=== PATIENT | male | born 1940 | race Caucasian/White ===

== ENCOUNTER 2016-07-07 10:58 | Day surgery (SDC) | payer MEDICARE ==
[2016-06-30 11:28] LABS: HEMOGLOBIN 15.1 g/dL (13.5-17.0); HGB HCT DIFFERENCE 1.3; MEAN CORPUSCULAR HEMOGLOBIN 30.6 pg (27.0-33.4); MEAN CORPUSCULAR HGB CONC 34.3 g/dL (32.0-36.0); MEAN CORPUSCULAR VOLUME 89 fl (80-97); RED BLOOD COUNT 4.93 10^6/uL (4.35-5.55); RED CELL DISTRIBUTION WIDTH 14.8 % (11.5-14.0); WHITE BLOOD COUNT 6.7 10^3/uL (4.0-10.5)
[2016-06-30 11:45] LABS: ALANINE AMINOTRANSFERASE 28 U/L (21-72); ALBUMIN 4.2 g/dL (3.5-5.0); ALKALINE PHOSPHATASE 145 U/L (38-126); ANION GAP 10 (5-19); ASPARTATE AMINO TRANSFERASE 25 U/L (17-59); BILIRUBIN,TOTAL 0.8 mg/dL (0.2-1.3); BLOOD UREA NITROGEN 26 mg/dL (7-20); CALCIUM 9.8 mg/dL (8.4-10.2); CARBON DIOXIDE 26 mmol/L (22-30); CHLORIDE 108 mmol/L (98-107); CREATININE RESULT 2.13 mg/dL (0.52-1.25); GLUCOSE 85 mg/dL (75-110); POTASSIUM 5.2 mmol/L (3.6-5.0); SODIUM 143.5 mmol/L (137-145); TOTAL PROTEIN 7.1 g/dL (6.3-8.2)
--- NOTE | 2016-06-30 12:00 | EKG REPORT ---
SEVERITY:- ABNORMAL ECG - SINUS BRADYCARDIA ABNRM R PROG, CONSIDER ASMI OR LEAD PLACEMENT : Confirmed by: Willa Graham MD 30-Jun-2016 11:59:43
[~2016-07-07 10:58] MED LIST: ACETAMINOPHEN 325 MG TABLET PO PRN; BUPIVACAINE HCL 0.25 % INJ/PF (2.5 MG/1 ML) 30 ML VIAL ONE; CEFAZOLIN SODIUM 1 GM in DEXTROSE 5%-WATER 50 ML IV PRN; DEXAMETHASONE SOD PHOSPHATE INJ 4 MG/1 ML VIAL ONE; GLYCOPYRROLATE INJ 0.4 MG/2 ML VIAL ONE; LIDOCAINE 0.5% INJ-PF (5 MG/ML) 50 ML SDV INJ PRN; METOCLOPRAMIDE HCL INJ/PF 10 MG/2 ML SDV ONE; NEOSTIGMINE METHYLSULFATE 10 MG/10 ML VIAL ONE; NORMAL SALINE 1000 ML 1,000 ML IV PRN; ONDANSETRON HCL INJ/PF 4 MG/2 ML SDV ONE; PHENYLEPHRINE HCL INJ/PF 10 MG/1 ML SDV ONE; ROCURONIUM BROMIDE INJ 50 MG/5 ML VIAL IV ONE; SUCCINYLCHOLINE CHLORIDE INJ 200 MG/10 ML VIAL ONE
[2016-07-07] MEDS ORDERED: HYDROMORPHONE HCL INJ/PF 2 MG/ML AMPULE ONE (12:25)
[2016-07-07] MEDS ORDERED: PROPOFOL INJ 200 MG/20 ML VIAL IV ONE (12:25)
[2016-07-07] MEDS ORDERED: FENTANYL CITRATE INJ/PF 100 MCG/2 ML AMPUL ONE (12:25)
[2016-07-07] MEDS ORDERED: MIDAZOLAM 2 MG/2 ML INJ ONE (12:25)
[2016-07-07 13:38] LABS: ANION GAP 12 (5-19); BLOOD UREA NITROGEN 23 mg/dL (7-20); CALCIUM 9.7 mg/dL (8.4-10.2); CARBON DIOXIDE 25 mmol/L (22-30); CHLORIDE 108 mmol/L (98-107); CREATININE RESULT 2.11 mg/dL (0.52-1.25); GLUCOSE 84 mg/dL (75-110)
--- NOTE | 2016-07-07 17:14 | Operative Report ---
Operative Report DATE OF SURGERY: 07/07/16 PREOPERATIVE DIAGNOSIS: Symptomatic cholelithiasis, umbilical hernia. POSTOPERATIVE DIAGNOSIS: Chronic and subacute cholecystitis with cholelithiasis , umbilical hernia OPERATION: Laparoscopic cholecystectomy. Umbilical hernia repair. SURGEON: NHUNG LOMELI ANESTHESIA: GA TISSUE REMOVED OR ALTERED: Gallbladder COMPLICATIONS: None ESTIMATED BLOOD LOSS: 100 mL INTRAOPERATIVE FINDINGS: Markedly inflamed socked in gallbladder. 1.5 cm umbilical hernia fascial defect PROCEDURE: Informed consent was obtained. Patient was brought to the operating room placed operating table in supine position. After satisfactory induction of general anesthesia, patient's abdomen was prepped and draped in usual sterile fashion. A semicircular infraumbilical incision was made and dissection was carried down dissecting the bellybutton off of the underlying umbilical hernia sac. The sac was the incised entering the peritoneal cavity. Sac was excised but not submitted to pathology. The umbilical hernia fascial defect measured 1.5 cm in size. This defect was closed at the end of the case using interrupted Ethibond sutures. Alonzo trocar was inserted via the umbilical hernia. Pneumoperitoneum produced good patient toleration. 5 mm trocar was placed in the subxiphoid location.the subxiphoid trocar was switched over to a 12 mm trocar at the latter part of the case for closure of the cystic duct. Two 5 mm trochars were placed in the right subcostal location. The gallbladder was grasped and retracted cephalad over the dome of the liver. The infundibulum of the gallbladder was grasped retracted laterally and inferiorly thus exposing calot's triangle. The gallbladder was markedly inflamed contracted and scarred in at Calot's triangle. Dissection was very difficult due to scarring. Meticulous dissection was performed and the cystic duct gallbladder junction was clearly identified. The dark appeared enlarged but it was very short and a cut was made in the gallbladder to allow introduction of the cholangio-catheter but I could not the the the catheter into the cystic duct through the hole in the gallbladder. I did not want to make a incision on the cystic duct since the cystic duct was short for fear of compromising the cystic duct closure. And the cystic duct was divided using a Endo MARCO ANTONIO stapling device. The cystic duct closure appeared secure.. Cystic artery was likewise taken. The gallbladder was taken off the gallbladder bed using the hook electrocautery technique. There was a posterior cystic artery branch clearly going into the gallbladder which was clipped and divided. The plane between the gallbladder wall and the liver was indistinct making this part of the procedure difficult as well. There was some blood loss. There was bile spillage as well as stone spillage during the case. Attempt at retrieving all the stones was made. The gallbladder was removed with an Endobag through the Alonzo trocar site fascial defect. The operative field was copiously irrigated and irrigant aspirated out. Irrigation fluid was perfectly clear at the end of the case. Hemostasis appeared excellent. All trochars were removed under the direct vision a laparoscope to ensure hemostasis. The umbilical hernia was repaired using interrupted the Ethibond sutures. The 12 mm trocar site at the subxiphoid region was closed with a interrupted Vicryl suture. All skin incisions were closed with subcuticular interrupted Monocryl sutures. Marcaine was injected at the port sites. Patient tolerated procedure well no apparent complications and was taken to the recovery area in stable condition.
[2016-07-07] MEDS ORDERED: PROMETHAZINE HCL INJ 25 MG/1 ML VIAL IV PRN ×2 (17:22)
[2016-07-07] MEDS ORDERED: MORPHINE SULFATE 10 MG/ML INJ IV PRN (17:22)
[2016-07-07] MEDS ORDERED: FENTANYL CITRATE INJ/PF 100 MCG/2 ML AMPUL IV PRN ×3 (17:22)
[2016-07-07] MEDS ORDERED: MEPERIDINE HCL/PF INJ 25 MG/1 ML DISP.SYRIN IV PRN (17:22)
[2016-07-07] MEDS ORDERED: DIPHENHYDRAMINE HCL 50 MG/ML VIAL IV PRN (17:22)
[2016-07-07] MEDS ORDERED: (PENDING PHARMACY ID) (Methadone Hcl [Methadone Hcl] 5 MG) PO PRN (17:23)
[2016-07-07] MEDS ORDERED: OXYCODONE-ACETAMINOPHEN 5-325 MG TABLET PO PRN (17:25)
[2016-07-07] MEDS ORDERED: ONDANSETRON HCL INJ/PF 4 MG/2 ML SDV IV PRN (17:25)
[2016-07-07] MEDS ORDERED: ACETAMINOPHEN 100 ML IV ONE (17:29)
[2016-07-07] MEDS ORDERED: DEXMEDETOMIDINE INJ 80 MCG/20 ML VIAL IV ONE (17:29)
[2016-07-07] MEDS ORDERED: METHADONE HCL 10 MG TABLET PO PRN (18:53)
[2016-07-07] MEDS ORDERED: PREGABALIN 75 MG CAPSULE PO ONE (19:30)
--- NOTE | 2016-07-07 19:35 | PDOC PROGRESS REPORT ---
Subjective Progress Note for:: 07/07/16 Subjective:: Feels well. Mild abdominal discomfort. No shortness of breath and no chest pain. Physical Exam Vital Signs: Temp Pulse Resp BP Pulse Ox 98.1 F 55 L 15 150/58 H 94 07/07/16 18:10 07/07/16 18:10 07/07/16 18:10 07/07/16 18:10 07/07/16 18:10 Intake & Output 07/06/16 07/07/16 07/08/16 06:59 06:59 06:59 Intake Total 2700 Output Total 1010 Balance 1690 Weight 86.18 kg General appearance: PRESENT: no acute distress, cooperative Respiratory exam: PRESENT: clear to auscultation [email or web address] Cardiovascular exam: PRESENT: RRR GI/Abdominal exam: PRESENT: other - Soft, nondistended, mild abdominal tenderness appropriate. Wounds clean dry and intact. Results Laboratory Results: 06/30/16 10:14 07/07/16 11:36 07/07/16 07/07/16 11:36 11:36 Sodium 145.0 Potassium 5.0 5.0 Chloride 108 H Carbon Dioxide 25 Anion Gap 12 BUN 23 H Creatinine 2.11 H Est GFR ( Amer) 37 L Est GFR (Non-Af Amer) 31 L Glucose 84 Calcium 9.7 Impressions: Chest X-Ray 06/30/16 08:54 IMPRESSION: NO SIGNIFICANT RADIOGRAPHIC FINDING IN THE CHEST. Assessment & Plan - Diagnosis (1) Cholecystitis Is this a current diagnosis for this admission?: YesPlan: Status post laparoscopic cholecystectomy. Difficult dissection due to severe inflammation. Patient appears to have tolerated procedure very well. Will keep nothing by mouth for tonight other than medications and ice chips. If he feels well we will allow him start clears in the morning. Probable discharge to home tomorrow. Ambulate patient tonight.
[2016-07-07] MEDS: METOPROLOL TARTRATE 25 MG TABLET PO SCH (21:21)
[2016-07-07] MEDS: BUDESONIDE/FORMOTEROL 80-4.5 MCG 60 PUFF/6.9 GM MDI IH SCH (21:21)
[2016-07-07] MEDS: CLONIDINE HCL 0.1 MG TABLET PO SCH (21:21)
[2016-07-07] MEDS: DEXTROSE 5%-1/2 NORMAL SALINE 1,000 ML IV PRN (21:21)
[2016-07-08] MEDS ORDERED: PREGABALIN 75 MG CAPSULE PO ONE (02:00)
[2016-07-08 05:16] LABS: HEMATOCRIT 40.6 % (37.9-51.0); HEMOGLOBIN 13.7 g/dL (13.5-17.0); HGB HCT DIFFERENCE 0.5; MEAN CORPUSCULAR HEMOGLOBIN 30.1 pg (27.0-33.4); MEAN CORPUSCULAR HGB CONC 33.7 g/dL (32.0-36.0); MEAN CORPUSCULAR VOLUME 89 fl (80-97); RED BLOOD COUNT 4.56 10^6/uL (4.35-5.55); RED CELL DISTRIBUTION WIDTH 15.5 % (11.5-14.0); WHITE BLOOD COUNT 11.6 10^3/uL (4.0-10.5)
[2016-07-08 05:28] LABS: ALANINE AMINOTRANSFERASE 41 U/L (21-72); ALBUMIN 3.3 g/dL (3.5-5.0); ALKALINE PHOSPHATASE 104 U/L (38-126); ANION GAP 14 (5-19); ASPARTATE AMINO TRANSFERASE 41 U/L (17-59); BILIRUBIN,TOTAL 0.7 mg/dL (0.2-1.3); BLOOD UREA NITROGEN 23 mg/dL (7-20); CALCIUM 8.8 mg/dL (8.4-10.2); CARBON DIOXIDE 20 mmol/L (22-30); CHLORIDE 105 mmol/L (98-107); GLUCOSE 189 mg/dL (75-110); POTASSIUM 4.6 mmol/L (3.6-5.0); SODIUM 138.9 mmol/L (137-145); TOTAL PROTEIN 5.9 g/dL (6.3-8.2)
[2016-07-08 05:58] LABS: ANISOCYTOSIS SLIGHT; BAND NEUTROPHILS % (MANUAL) 7 % (3-5); BASOPHILS % (MANUAL) 0 % (0-2); EOSINOPHILS % (MANUAL) 0 % (0-6); LYMPHOCYTES % (MANUAL) 1 % (13-45); POIKILOCYTOSIS SLIGHT; TOTAL CELLS COUNTED 100; TOXIC GRANULATION SLIGHT; TOXIC VACUOLATION PRESENT
[2016-07-08 05:59] LABS: BURR CELLS SLIGHT; OVALOCYTES SLIGHT; SCHISTOCYTES SLIGHT; TEAR DROP CELLS SLIGHT
[2016-07-08] MEDS: DEXTROSE 5%-1/2 NORMAL SALINE 1,000 ML IV PRN (08:51)
[2016-07-08] MEDS ORDERED: ATORVASTATIN CALCIUM 10 MG TABLET PO SCH ×2 (10:00→22:00)
[2016-07-08] MEDS ORDERED: PREGABALIN 75 MG CAPSULE PO SCH (10:00)
[2016-07-08] MEDS ORDERED: AMLODIPINE BESYLATE 10 MG TABLET PO SCH (10:00)
[2016-07-08] MEDS ORDERED: (PENDING PHARMACY ID) (Cholecalciferol (Vitamin D3) [Vitamin D3] 2,000 UNIT) PO SCH (10:00)
[2016-07-08] MEDS ORDERED: ASPIRIN 81 MG TABLET, CHEWABLE PO SCH (10:00)
[2016-07-08] MEDS ORDERED: CHOLECALCIFEROL (D3) 1,000 UNIT TABLET PO SCH ×2 (10:00→22:00)
[2016-07-08] MEDS ORDERED: TIOTROPIUM BROMIDE DPI 5 CAP/KIT (18 MCG/CAP) IH SCH (10:00)
[2016-07-08] MEDS ORDERED: (PENDING PHARMACY ID) (Clonidine Hcl [Clonidine Hcl Er] 0.1 MG) PO SCH (10:00)
[2016-07-08] MEDS ORDERED: FEBUXOSTAT 40 MG TABLET PO SCH ×2 (10:00→22:00)
[2016-07-08] MEDS ORDERED: LOSARTAN POTASSIUM 25 MG TABLET PO SCH ×2 (10:00→18:00)
[2016-07-08] MEDS: METOPROLOL TARTRATE 25 MG TABLET PO SCH (10:17)
[2016-07-08] MEDS: BUDESONIDE/FORMOTEROL 80-4.5 MCG 60 PUFF/6.9 GM MDI IH SCH (10:18)
[2016-07-08] MEDS: CLONIDINE HCL 0.1 MG TABLET PO SCH (10:22)
[2016-07-08] MEDS ORDERED: LOSARTAN POTASSIUM 25 MG TABLET PO ONE (10:45)
--- NOTE | 2016-07-08 11:32 | PDOC PROGRESS REPORT ---
Subjective Progress Note for:: 07/08/16 Subjective:: frequent urination and periumbilical pain. o/w feels well Physical Exam Vital Signs: Temp Pulse Resp BP Pulse Ox 98.2 F 66 17 157/58 H 95 07/08/16 07:37 07/08/16 07:37 07/08/16 07:37 07/08/16 07:37 07/08/16 07:37 Intake & Output 07/07/16 07/08/16 07/09/16 06:59 06:59 06:59 Intake Total 3510 Output Total 1410 Balance 2100 Weight 86.8 kg General appearance: PRESENT: no acute distress, cooperative Respiratory exam: PRESENT: clear to auscultation [email or web address] Cardiovascular exam: PRESENT: RRR GI/Abdominal exam: PRESENT: other - soft, mild tenderness at umbilicus. Musculoskeletal exam: PRESENT: other - no swelling Results Laboratory Results: 07/08/16 04:21 07/08/16 04:21 07/07/16 07/07/16 07/08/16 11:36 11:36 04:21 WBC 11.6 H RBC 4.56 Hgb 13.7 Hct 40.6 MCV 89 MCH 30.1 MCHC 33.7 RDW 15.5 H Plt Count 178 Seg Neutrophils % Not Reportable Lymphocytes % Not Reportable Monocytes % Not Reportable Eosinophils % Not Reportable Basophils % Not Reportable Absolute Neutrophils Not Reportable Absolute Lymphocytes Not Reportable Absolute Monocytes Not Reportable Absolute Eosinophils Not Reportable Absolute Basophils Not Reportable Sodium 145.0 Potassium 5.0 5.0 Chloride 108 H Carbon Dioxide 25 Anion Gap 12 BUN 23 H Creatinine 2.11 H Est GFR ( Amer) 37 L Est GFR (Non-Af Amer) 31 L Glucose 84 Calcium 9.7 Total Bilirubin AST ALT Alkaline Phosphatase Total Protein Albumin 07/08/16 04:21 WBC RBC Hgb Hct MCV MCH MCHC RDW Plt Count Seg Neutrophils % Lymphocytes % Monocytes % Eosinophils % Basophils % Absolute Neutrophils Absolute Lymphocytes Absolute Monocytes Absolute Eosinophils Absolute Basophils Sodium 138.9 Potassium 4.6 Chloride 105 Carbon Dioxide 20 L Anion Gap 14 BUN 23 H Creatinine 2.00 H Est GFR ( Amer) 40 L Est GFR (Non-Af Amer) 33 L Glucose 189 H Calcium 8.8 Total Bilirubin 0.7 AST 41 ALT 41 Alkaline Phosphatase 104 Total Protein 5.9 L Albumin 3.3 L Impressions: Chest X-Ray 06/30/16 08:54 IMPRESSION: NO SIGNIFICANT RADIOGRAPHIC FINDING IN THE CHEST. Assessment & Plan - Diagnosis (1) Cholecystitis Is this a current diagnosis for this admission?: YesPlan: Status post laparoscopic cholecystectomy. Difficult dissection due to severe inflammation. Patient appears to have tolerated procedure very well. looks good other than urinary complaints, check bladder scan. stop ivf.
--- NOTE | 2016-07-08 13:01 | PDOC PROGRESS REPORT ---
Subjective Progress Note for:: 07/08/16 Subjective:: feels ok other than frequent urination Physical Exam Vital Signs: Temp Pulse Resp BP Pulse Ox 98.2 F 66 17 157/58 H 95 07/08/16 07:37 07/08/16 07:37 07/08/16 07:37 07/08/16 07:37 07/08/16 07:37 Intake & Output 07/07/16 07/08/16 07/09/16 06:59 06:59 06:59 Intake Total 3510 Output Total 1410 Balance 2100 Weight 86.8 kg Results Laboratory Results: 07/08/16 04:21 07/08/16 04:21 07/07/16 07/08/16 07/08/16 11:36 04:21 04:21 WBC 11.6 H RBC 4.56 Hgb 13.7 Hct 40.6 MCV 89 MCH 30.1 MCHC 33.7 RDW 15.5 H Plt Count 178 Seg Neutrophils % Not Reportable Lymphocytes % Not Reportable Monocytes % Not Reportable Eosinophils % Not Reportable Basophils % Not Reportable Absolute Neutrophils Not Reportable Absolute Lymphocytes Not Reportable Absolute Monocytes Not Reportable Absolute Eosinophils Not Reportable Absolute Basophils Not Reportable Sodium 145.0 138.9 Potassium 5.0 4.6 Chloride 108 H 105 Carbon Dioxide 25 20 L Anion Gap 12 14 BUN 23 H 23 H Creatinine 2.11 H 2.00 H Est GFR ( Amer) 37 L 40 L Est GFR (Non-Af Amer) 31 L 33 L Glucose 84 189 H Calcium 9.7 8.8 Total Bilirubin 0.7 AST 41 ALT 41 Alkaline Phosphatase 104 Total Protein 5.9 L Albumin 3.3 L Impressions: Chest X-Ray 06/30/16 08:54 IMPRESSION: NO SIGNIFICANT RADIOGRAPHIC FINDING IN THE CHEST. Assessment & Plan - Diagnosis (1) Cholecystitis Is this a current diagnosis for this admission?: Yes (2) Urinary retention due to benign prostatic hyperplasia Is this a current diagnosis for this admission?: YesPlan: bladder scanner not working. h/o bph. will do straight cath. if output high, will leave catheter in. place on flomax.
[2016-07-08] MEDS ORDERED: TAMSULOSIN HCL 0.4 MG CAP.SR.24H PO ONE (14:00)
[2016-07-08 17:13] VITALS: BP 151/61
--- NOTE | 2016-07-08 17:15 | PDOC DISCHARGE SUMMARY ---
Discharge Summary (SDC) - Discharge Final Diagnosis: Cholecystitis. Umbilical hernia. Urinary retention. Date of Surgery: 07/07/16 Discharge Date: 07/08/16 Condition: Good Treatment or Instructions: Underwent umbilical hernia repair. Underwent laparoscopic cholecystectomy. Did well other than urinary retention requiring a Brian catheter with drainage of greater than a liter of urine. Therefore patient was placed on Flomax and the catheter was left in with the instructions given to the patient for catheter care. He will follow-up with his urologist as an outpatient. He will follow-up with me in 2 weeks. He is encouraged to stay active but avoid strenuous activity. He was tolerating a solid diet at the time of discharge. He is to call me for any problems. Prescriptions: Oxycodone HCl/Acetaminophen [Percocet 5-325 mg Tablet] 1 tab PO ASDIR PRN #25 tablet PRN Reason: Tamsulosin HCl [Flomax 0.4 mg Cap.sr] 0.4 mg PO DAILY #14 cap.sr.24h Referrals: [facility] [Provider Group] DREA PADGETT MD [Primary Care Provider] - Discharge Diet: As Tolerated Discharge Activity: Activity As Tolerated - They active but avoid strenuous activity. May shower tomorrow. Report the Following to Your Physician Immediately: Yellow Skin, Fever over 101 Degrees, Unusual Bleeding, Redness, Drainage-Foul Smelling
[2016-07-08] MEDS ORDERED: CLONIDINE HCL 0.1 MG TABLET PO SCH (22:00)
[2016-07-08] MEDS ORDERED: LOSARTAN POTASSIUM 50 MG TABLET PO SCH (22:00)
[2016-07-09] MEDS ORDERED: (PENDING PHARMACY ID) (Clonidine Hcl [Clonidine Hcl Er] 0.1 MG) PO SCH ×2 (10:00)
== END 2016-07-08 18:15 | disposition home or self-care (01) ==
LOC: OROUT 10:58 → 5 18:40 → OROUT 07-08 18:15
PROVIDERS: ATTEND Surgery
PROC: 0FT44ZZ Resection of Gallbladder, Percutaneous Endoscopic Approach (ICD-10-PCS; principal; 2016-07-07 13:30)
PROC: 0WQF0ZZ Repair Abdominal Wall, Open Approach (ICD-10-PCS; 2016-07-07 13:30)
DX: K81.0 Acute cholecystitis (principal); K81.1 Chronic cholecystitis; K42.9 Umbilical hernia without obstruction or gangrene; M94.0 Chondrocostal junction syndrome [Tietze]; R00.2 Palpitations; E78.5 Hyperlipidemia, unspecified; M54.30 Sciatica, unspecified side; M11.09 Hydroxyapatite deposition disease, multiple sites; I70.0 Atherosclerosis of aorta; I35.0 Nonrheumatic aortic (valve) stenosis; J43.9 Emphysema, unspecified; E04.1 Nontoxic single thyroid nodule; B02.29 Other postherpetic nervous system involvement; I12.9 Hypertensive chronic kidney disease with stage 1 through stage 4 chronic kidney disease, or unspecified chronic kidney disease; N18.9 Chronic kidney disease, unspecified; E07.9 Disorder of thyroid, unspecified; I25.2 Old myocardial infarction; Z86.73 Personal history of transient ischemic attack (TIA), and cerebral infarction without residual deficits; Z85.528 Personal history of other malignant neoplasm of kidney; Z87.891 Personal history of nicotine dependence
CPT/HCPCS: 93005; 36415 ×2; 84132; 85025; 85027; 80048; 80053 ×2; 88304 ×2; 71020; 93010; 47562; 49585; Q9967; J2250; A9270 ×9; J0690; J3490 ×5; J1100; J2765; J1170; J2370; J0330; J2405; J2704; J0131; 790; J3010

== ENCOUNTER 2016-07-17 16:59 | Emergency (ER) | payer MEDICARE ==
--- NOTE | 2016-07-17 17:09 | ER Document Report ---
ED Medical Screen (RME) - General Stated Complaint: URINATION CONCERNS Time seen by provider: 17:06 Mode of Arrival: Ambulatory Information source: Patient Notes: 75-year-old male presents to ED for urinary retention. He states he has not had a good void since 9:30 this morning. States he has not voided at all for the last 3 hours. Sip from 9:30 this morning until 3 hours ago he was just having small dribbles. Patient states he is not having any sensation like he needs to urinate but has not drank a lot today either. He states he's drank about 24 ounces since this morning. States he had a catheter removed yesterday morning by Dr. Arriaza about 9:[address] Arriaza told him that he might have to have one put back in. I have greeted and performed a rapid initial assessment of this patient. A comprehensive ED assessment and evaluation of the patient, analysis of test results and completion of medical decision making process will be conducted by an additional ED providers. TRAVEL OUTSIDE OF THE [place] IN LAST 30 DAYS: No - Related Data Allergies/Adverse Reactions: iohexol [From Omnipaque] Adverse Reaction (Severe, Verified 07/07/16 19:07) Renal failure contrast dye Allergy (Severe, Uncoded 06/30/16 09:41) kidney failure Past Medical History - Past Medical History Cardiac Medical History: Reports: Hx Coronary Artery Disease, Hx Heart Attack - 2013, Hx Hypercholesterolemia, Hx Hypertension - on meds Pulmonary Medical History: Reports: Hx COPD - inhalers, Hx Pneumonia - hx of Denies: Hx Asthma Neurological Medical History: Denies: Hx Cerebrovascular Accident, Hx Seizures Endocrine Medical History: Reports: Hx Hypothyroidism Renal/ Medical History: Reports: Hx Benign Prostatic Hyperplasia Malignancy Medical History: Reports Hx Renal (Kidney) Cancer Musculoskeltal Medical History: Reports Hx Arthritis - gout Psychiatric Medical History: Denies: Hx Depression Past Surgical History: Reports: Hx Kidney (Renal Surgery) - tumor removed - Immunizations Immunizations up to date: Yes Hx Diphtheria, Pertussis, Tetanus Vaccination: Yes Physical Exam - Vital signs Vitals: Temp Pulse Resp BP Pulse Ox 98.1 F 59 L 18 127/51 H 97 07/17/16 17:02 07/17/16 17:02 07/17/16 17:02 07/17/16 17:02 07/17/16 17:02 Course - Vital Signs Vital signs: Temp Pulse Resp BP Pulse Ox 98.1 F 59 L 18 127/51 H 97 07/17/16 17:02 07/17/16 17:02 07/17/16 17:02 07/17/16 17:02 07/17/16 17:02
--- NOTE | 2016-07-17 18:32 | ER Document Report ---
ED General - General Chief Complaint: Urinary Problem Stated Complaint: URINATION CONCERNS Mode of Arrival: Ambulatory Information source: Patient Notes: 75 yr old male hx of bph with el that was removed post surgery yesterday by Dr Arsalan vera complaints of diffiuclty urinating. denies any pain TRAVEL OUTSIDE OF THE [place] IN LAST 30 DAYS: No - HPI Onset: Just prior to arrival Onset/Duration: Persistent Quality of pain: No pain Severity: Mild Pain Level: Denies Associated symptoms: None Exacerbated by: Denies Relieved by: Denies Similar symptoms previously: Yes Recently seen / treated by doctor: Yes - Related Data Allergies/Adverse Reactions: iohexol [From Omnipaque] Adverse Reaction (Severe, Verified 07/17/16 17:09) Renal failure contrast dye Allergy (Severe, Uncoded 07/17/16 17:09) kidney failure Past Medical History - General Information source: Patient - Social History Smoking Status: Never Smoker Cigarette use (# per day): No Chew tobacco use (# tins/day): No Smoking Education Provided: No Frequency of alcohol use: None Drug Abuse: None Family History: Reviewed & Not Pertinent Patient has suicidal ideation: No Patient has homicidal ideation: No - Past Medical History Cardiac Medical History: Reports: Hx Coronary Artery Disease, Hx Heart Attack - 2013, Hx Hypercholesterolemia, Hx Hypertension - on meds Pulmonary Medical History: Reports: Hx COPD - inhalers, Hx Pneumonia - hx of Denies: Hx Asthma Neurological Medical History: Denies: Hx Cerebrovascular Accident, Hx Seizures Endocrine Medical History: Reports: Hx Hypothyroidism Renal/ Medical History: Reports: Hx Benign Prostatic Hyperplasia. Denies: Hx Peritoneal Dialysis Malignancy Medical History: Reports Hx Renal (Kidney) Cancer Musculoskeltal Medical History: Reports Hx Arthritis - gout Psychiatric Medical History: Denies: Hx Depression Past Surgical History: Reports: Hx Cholecystectomy, Hx Kidney (Renal Surgery) - tumor removed - Immunizations Immunizations up to date: Yes Hx Diphtheria, Pertussis, Tetanus Vaccination: Yes Hx Pneumococcal Vaccination: 02/21/16 Review of Systems - Review of Systems Notes: REVIEW OF SYSTEMS: CONSTITUTIONAL : Denies fever, chills, or sweats. Denies recent illness. EENT: Denies eye, ear, throat, or mouth pain or symptoms. Denies nasal or sinus congestion or discharge. Denies throat, tongue, or mouth swelling or difficulty swallowing. CARDIOVASCULAR: Denies chest pain. Denies palpitations or racing or irregular heart beat. Denies ankle edema. RESPIRATORY: Denies cough, cold, or chest congestion. Denies shortness of breath, difficulty breathing, or wheezing. GASTROINTESTINAL: Denies abdominal pain or distention. Denies nausea, vomiting , or diarrhea. Denies blood in vomitus, stools, or per rectum. Denies black, tarry stools. Denies constipation. GENITOURINARY: difficulty urinating MUSCULOSKELETAL: Denies back or neck pain or stiffness. Denies joint pain or swelling. SKIN: Denies rash, lesions or sores. HEMATOLOGIC : Denies easy bruising or bleeding. LYMPHATIC: Denies swollen, enlarged glands. NEUROLOGICAL: Denies confusion or altered mental status. Denies passing out or loss of consciousness. Denies dizziness or lightheadedness. Denies headache. Denies weakness or paralysis or loss of use of either side. Denies problems with gait or speech. Denies sensory loss, numbness, or tingling. Denies seizures. PSYCHIATRIC: Denies anxiety or stress. Denies depression, suicidal ideation, or homicidal ideation. ALL OTHER SYSTEMS REVIEWED AND NEGATIVE. Dictation was performed using [email or web address] voice recognition software PHYSICAL EXAMINATION: GENERAL: Well-appearing, well-nourished and in no acute distress. HEAD: Atraumatic, normocephalic. EYES: Pupils equal round and reactive to light, extraocular movements intact, sclera anicteric, conjunctiva are normal. ENT: Nares patent, oropharynx clear without exudates. Moist mucous membranes. NECK: Normal range of motion, supple without lymphadenopathy LUNGS: Breath sounds clear to auscultation bilaterally and equal. No wheezes rales or rhonchi. HEART: Regular rate and rhythm without murmurs ABDOMEN: Postsurgical incisions well healing Musculoskeletal: Normal range of motion, no pitting or edema. No cyanosis. NEUROLOGICAL: Cranial nerves grossly intact. Normal speech, normal gait. Normal sensory, motor exams PSYCH: Normal mood, normal affect. SKIN: Warm, Dry, normal turgor, no rashes or lesions noted. Physical Exam - Vital signs Vitals: Temp Pulse Resp BP Pulse Ox 98.1 F 59 L 18 127/51 H 97 07/17/16 17:02 07/17/16 17:02 07/17/16 17:02 07/17/16 17:02 07/17/16 17:02 Course - Re-evaluation Re-evalutation: 07/17/16 18:43 El was placed 400 mL of urine was obtained patient's otherwise stable for discharge Patient's otherwise stable for discharge he is very happy with this plan After performing a Medical Screening Examination, I estimate there is LOW risk for ACUTE CORONARY SYNDROME, RESPIRATORY FAILURE, SEPSIS OR MENINGITIS, thus I consider the discharge disposition reasonable. The patient and I have discussed the diagnosis and risks, and we agree with discharging home with close follow- up. We also discussed returning to the Emergency Department immediately if new or worsening symptoms occur. We have discussed the symptoms which are most concerning (e.g., changing or worsening pain, trouble swallowing or breathing, neck stiffness, fever) that necessitate immediate return. - Vital Signs Vital signs: Temp Pulse Resp BP Pulse Ox 98.1 F 59 L 18 127/51 H 97 07/17/16 17:02 07/17/16 17:02 07/17/16 17:02 07/17/16 17:02 07/17/16 17:02 Discharge - Discharge Clinical Impression: Urinary retention due to benign prostatic hyperplasia, Urinary catheter change required Condition: Stable Disposition: HOME, SELF-CARE Instructions: El Catheter Care (OM) Additional Instructions: Follow up with your physician tomorrow for further care or return to the ED IMMEDIATELY if symptoms worsen or new concerns occur
[2016-07-17 19:17] VITALS: BP 121/57
== END 2016-07-17 19:07 | disposition home or self-care (01) ==
LOC: ER 16:59
DX: N40.1 Benign prostatic hyperplasia with lower urinary tract symptoms (principal); R33.8 Other retention of urine; Z98.890 Other specified postprocedural states; I25.10 Atherosclerotic heart disease of native coronary artery without angina pectoris; I25.2 Old myocardial infarction; I10 Essential (primary) hypertension; J44.9 Chronic obstructive pulmonary disease, unspecified; Z85.528 Personal history of other malignant neoplasm of kidney; Z91.041 Radiographic dye allergy status
CPT/HCPCS: 51702; 99283

== ENCOUNTER 2016-07-25 10:50 | Emergency (ER) | payer MEDICARE ==
--- NOTE | 2016-07-25 10:57 | ER Document Report ---
ED Medical Screen (RME) - General Stated Complaint: BLOOD IN URINE Notes: Patient is a 75-year-old male presents emergency Department with pain, hematuria in leg bag. Patient was recently seen on July [address] Keith for evaluation of urinary retention, he was sent home with a catheter and leg bag due to follow up with Dr. Bellamy on Wednesday. Patient has a history of BPH and had prolonged catheterization after cholecystectomy. I have greeted and performed a rapid initial assessment of this patient. A comprehensive ED assessment and evaluation of the patient, analysis of test results and completion of the medical decision making process will be conducted by additional ED providers. TRAVEL OUTSIDE OF THE [place] IN LAST 30 DAYS: No - Related Data Allergies/Adverse Reactions: iohexol [From Omnipaque] Adverse Reaction (Severe, Verified 07/25/16 10:55) Renal failure contrast dye Allergy (Severe, Uncoded 07/25/16 10:55) kidney failure Past Medical History - Past Medical History Cardiac Medical History: Reports: Hx Coronary Artery Disease, Hx Heart Attack - 2013, Hx Hypercholesterolemia, Hx Hypertension - on meds Pulmonary Medical History: Reports: Hx COPD - inhalers, Hx Pneumonia - hx of Denies: Hx Asthma Neurological Medical History: Denies: Hx Cerebrovascular Accident, Hx Seizures Endocrine Medical History: Reports: Hx Hypothyroidism Renal/ Medical History: Reports: Hx Benign Prostatic Hyperplasia. Denies: Hx Peritoneal Dialysis Malignancy Medical History: Reports Hx Renal (Kidney) Cancer Musculoskeltal Medical History: Reports Hx Arthritis - gout Psychiatric Medical History: Denies: Hx Depression Past Surgical History: Reports: Hx Cholecystectomy, Hx Kidney (Renal Surgery) - tumor removed - Immunizations Immunizations up to date: Yes Hx Diphtheria, Pertussis, Tetanus Vaccination: Yes Physical Exam - Vital signs Vitals: Temp Pulse Resp BP Pulse Ox 98.7 F 58 L 16 121/51 L 96 07/25/16 10:53 07/25/16 10:53 07/25/16 10:53 07/25/16 10:53 07/25/16 10:53 Course - Vital Signs Vital signs: Temp Pulse Resp BP Pulse Ox 98.7 F 58 L 16 121/51 L 96 07/25/16 10:53 07/25/16 10:53 07/25/16 10:53 07/25/16 10:53 07/25/16 10:53
--- NOTE | 2016-07-25 11:32 | ER Document Report ---
ED GI/ - General Mode of Arrival: Ambulatory Information source: Patient, Relative - spouse TRAVEL OUTSIDE OF THE [place] IN LAST 30 DAYS: No - HPI Patient complains to provider of: Hematuria Associated symptoms: Other - See above <BAY QUIÑONEZ - Last Filed: 07/25/16 12:15> <POONAM ROGERS - Last Filed: 07/25/16 13:33> - General Chief Complaint: Blood in Catheter Stated Complaint: BLOOD IN URINE Notes: Patient is a 75 year old male who presents to the emergency department complaining of blood in his catheter. On 07/07 patient had a cholecysectomy performed with umbilical hernia repair and a Brian catheter was placed, on 07/16 the catheter was removed, and on 07/17 patient went to the ED for urinary retention and another Brian was placed. Per patient is instructed to keep this catheter in place until 07/27 for an appointment with his surgeon. Patient states that he has noticed small amounts of blood in his urine for the past week but last night the amount of blood increased. Patient also complains of some pain with the catheter, describing it as stinging and reports that it is exacerbated when the catheter is moved., and pain in his scrotal area when sitting. reports patient had a small fever of 99.2 this morning at home as well. Urologist: Dr. Arriaza (BAY QUIÑONEZ) - Related Data Allergies/Adverse Reactions: iohexol [From Omnipaque] Adverse Reaction (Severe, Verified 07/25/16 10:55) Renal failure contrast dye Allergy (Severe, Uncoded 07/25/16 10:55) kidney failure Past Medical History - General Information source: Patient - Social History Smoking Status: Unknown if Ever Smoked Chew tobacco use (# tins/day): No Frequency of alcohol use: None Drug Abuse: None Family History: Reviewed & Not Pertinent Patient has suicidal ideation: No Patient has homicidal ideation: No - Past Medical History Cardiac Medical History: Reports: Hx Coronary Artery Disease, Hx Heart Attack - 2013, Hx Hypercholesterolemia, Hx Hypertension - on meds Pulmonary Medical History: Reports: Hx COPD - inhalers, Hx Pneumonia - hx of Endocrine Medical History: Reports: Hx Hypothyroidism Renal/ Medical History: Reports: Hx Benign Prostatic Hyperplasia Malignancy Medical History: Reports Hx Renal (Kidney) Cancer Musculoskeltal Medical History: Reports Hx Arthritis - gout Past Surgical History: Reports: Hx Cholecystectomy, Hx Kidney (Renal Surgery) - tumor removed - Immunizations Immunizations up to date: Yes Hx Diphtheria, Pertussis, Tetanus Vaccination: Yes Hx Pneumococcal Vaccination: 02/21/16 <BAY QUIÑONEZ - Last Filed: 07/25/16 12:15> Review of Systems - Review of Systems Constitutional: See HPI, Fever EENT: No symptoms reported Cardiovascular: No symptoms reported Respiratory: No symptoms reported Gastrointestinal: No symptoms reported Genitourinary: See HPI, Hematuria, Pain - catheter Male Genitourinary: No symptoms reported Musculoskeletal: No symptoms reported Skin: No symptoms reported Hematologic/Lymphatic: No symptoms reported Neurological/Psychological: No symptoms reported -: Yes All other systems reviewed and negative <BAY QUIÑONEZ - Last Filed: 07/25/16 12:15> Physical Exam - Vital signs Interpretation: Normal - General General appearance: Appears well, Alert - HEENT Head: Normocephalic, Atraumatic - Respiratory Respiratory status: No respiratory distress Breath sounds: Other - Congested cough - Abdominal Inspection: Normal Distension: No distension Tenderness: Nontender Organomegaly: No organomegaly - Genitourinary Inspection: Other - Dark, non-clotting bood and urine in catheter Tenderness: Nontender - Suprapubic area not tender to palpation. Prostate small , firm, and not tender to palpation Scrotum: Normal - and nontender - Extremities General upper extremity: Normal inspection General lower extremity: Normal inspection - Neurological Neuro grossly intact: Yes Cognition: Normal Orientation: AAOx4 Stratton Coma Scale Eye Opening: Spontaneous Stratton Coma Scale Verbal: Oriented Felix Coma Scale Motor: Obeys Commands Felix Coma Scale Total: 15 Speech: Normal - Psychological Associated symptoms: Normal affect, Normal mood - Skin Skin Temperature: Warm Skin Moisture: Dry Skin Color: Normal <BAY QUIÑONEZ - Last Filed: 07/25/16 12:15> <POONAM ROGERS - Last Filed: 07/25/16 13:33> - Vital signs Vitals: Temp Pulse Resp BP Pulse Ox 98.7 F 58 L 16 121/51 L 96 07/25/16 10:53 07/25/16 10:53 07/25/16 10:53 07/25/16 10:53 07/25/16 10:53 Course - Laboratory Result Diagrams: 07/25/16 11:00 07/25/16 11:00 <BAY QUIÑONEZ - Last Filed: 07/25/16 12:15> - Laboratory Result Diagrams: 07/25/16 11:00 07/25/16 11:00 <POONAM ROGERS - Last Filed: 07/25/16 13:33> - Vital Signs Vital signs: Temp Pulse Resp BP Pulse Ox 98.5 F 58 L 16 121/51 L 96 07/25/16 12:20 07/25/16 10:53 07/25/16 10:53 07/25/16 10:53 07/25/16 10:53 - Laboratory Laboratory results interpreted by me: 07/25/16 07/25/16 07/25/16 11:00 11:00 11:00 WBC 12.3 H Hgb 13.3 L RDW 14.6 H Seg Neuts % (Manual) 83 H Band Neutrophils % 2 L Lymphocytes % (Manual) 4 L Abs Neuts (Manual) 10.5 H Potassium 5.1 H BUN 25 H Creatinine 2.03 H Est GFR ( Amer) 39 L Est GFR (Non-Af Amer) 32 L Alkaline Phosphatase 130 H Albumin 3.4 L Urine Protein 100 H Urine Glucose (UA) 50 H Urine Blood MODERATE H Discharge <BAY QUIÑONEZ - Last Filed: 07/25/16 12:15> <POONAM ROGERS - Last Filed: 07/25/16 13:33> - Discharge Clinical Impression: Brian catheter in place prior to arrival, Hematuria Urinary tract infection Qualifiers: Urinary tract infection type: site unspecified Hematuria presence: with hematuria Qualified Code(s): N39.0 - Urinary tract infection, site not specified Leukocytosis Qualifiers: Leukocytosis type: bandemia Qualified Code(s): D72.825 - Bandemia BPH (benign prostatic hyperplasia) Qualifiers: Prostatic enlargement morphology: unspecified morphology Lower urinary tract symptom presence: presence of symptoms unspecified Qualified Code(s): N40.0 - Benign prostatic hyperplasia without lower urinary tract symptoms Condition: Stable Disposition: HOME, SELF-CARE Additional Instructions: Take the medications as prescribed. Take Tylenol for pain or fever if needed. Take plenty of fluids. Avoid potassium in your diet. Call your urologist Wednesday morning to set up a follow-up appointment and inform him of your scheduled appointment with your general surgeon. RETURN TO THE EMERGENCY ROOM IF ANY NEW OR WORSENING SYMPTOMS. Prescriptions: Ciprofloxacin HCl [Cipro 500 mg Tablet] 500 mg PO BID #14 tablet Referrals: DREA PADGETT MD [Primary Care Provider] - Follow up as needed Scribe Attestation: 07/25/16 13:33 I personally performed the services described in the documentation, reviewed and edited the documentation which was dictated to the scribe in my presence, and it accurately records my words and actions. (POONAM ROGERS) Scribe Documentation - Scribe Written by Olu:: olu Rivera, 07/25/16, 1220 acting as scribe for :: Rick <BAY QUIÑONEZ - Last Filed: 07/25/16 12:15>
[2016-07-25 11:39] LABS: HEMATOCRIT 39.7 % (37.9-51.0); HEMOGLOBIN 13.3 g/dL (13.5-17.0); HGB HCT DIFFERENCE 0.2; MEAN CORPUSCULAR HEMOGLOBIN 29.5 pg (27.0-33.4); MEAN CORPUSCULAR HGB CONC 33.5 g/dL (32.0-36.0); MEAN CORPUSCULAR VOLUME 88 fl (80-97); RED BLOOD COUNT 4.51 10^6/uL (4.35-5.55); RED CELL DISTRIBUTION WIDTH 14.6 % (11.5-14.0); WHITE BLOOD COUNT 12.3 10^3/uL (4.0-10.5)
[2016-07-25 11:46] LABS: APPEARANCE,URINE CLOUDY; BILIRUBIN,URINE NEGATIVE (NEGATIVE); GLUCOSE, URINE 50 mg/dL (NEGATIVE); KETONES,URINE NEGATIVE (NEGATIVE); LEUKOCYTE ESTERASE,URINE NEGATIVE (NEGATIVE); NITRITE,URINE NEGATIVE (NEGATIVE); PROTEIN,URINE 100 mg/dL (NEGATIVE); URINE SPECIFIC GRAVITY 1.012; UROBILINOGEN,URINE NEGATIVE mg/dL (<2.0)
[2016-07-25 11:52] LABS: ALANINE AMINOTRANSFERASE 21 U/L (21-72); ALBUMIN 3.4 g/dL (3.5-5.0); ALKALINE PHOSPHATASE 130 U/L (38-126); ANION GAP 10 (5-19); ASPARTATE AMINO TRANSFERASE 17 U/L (17-59); BILIRUBIN,TOTAL 0.6 mg/dL (0.2-1.3); BLOOD UREA NITROGEN 25 mg/dL (7-20); CALCIUM 9.3 mg/dL (8.4-10.2); CARBON DIOXIDE 25 mmol/L (22-30); CHLORIDE 105 mmol/L (98-107); CREATININE RESULT 2.03 mg/dL (0.52-1.25); GLUCOSE 102 mg/dL (75-110); POTASSIUM 5.1 mmol/L (3.6-5.0); SODIUM 140.1 mmol/L (137-145); TOTAL PROTEIN 6.6 g/dL (6.3-8.2)
[2016-07-25 12:03] LABS: BAND NEUTROPHILS % (MANUAL) 2 % (3-5); BASOPHILS % (MANUAL) 0 % (0-2); EOSINOPHILS % (MANUAL) 1 % (0-6); LYMPHOCYTES % (MANUAL) 4 % (13-45); TOTAL CELLS COUNTED 100
[2016-07-25 12:04] LABS: RBC MORPHOLOGY COMMENT NORMO-CYTIC/CHROMIC
[2016-07-25] MEDS ORDERED: CEFTRIAXONE 1 GM/D5W RTU 50 ML IV ONE (12:50)
[2016-07-25] MEDS ORDERED: CIPROFLOXACIN HCL 500 MG TABLET PO ONE (13:28)
[2016-07-25 14:20] VITALS: BP 143/57
== END 2016-07-25 14:15 | disposition home or self-care (01) ==
LOC: ER 10:50
DX: T85.9XXA Unspecified complication of internal prosthetic device, implant and graft, initial encounter (principal); R31.9 Hematuria, unspecified; N39.0 Urinary tract infection, site not specified; D72.825 Bandemia; N40.0 Benign prostatic hyperplasia without lower urinary tract symptoms; R50.9 Fever, unspecified
CPT/HCPCS: 99283; 96365; 36415; 87040; 87086; 85025; 87088; 80053; 81001; 87186; A9270; J0696

== ENCOUNTER → 2016-09-04 | Outpatient (CLI) | payer MEDICARE ==
[2016-09-04 08:46] LABS: APPEARANCE,URINE CLEAR; BILIRUBIN,URINE NEGATIVE (NEGATIVE); GLUCOSE, URINE NEGATIVE (NEGATIVE); KETONES,URINE NEGATIVE (NEGATIVE); LEUKOCYTE ESTERASE,URINE NEGATIVE (NEGATIVE); NITRITE,URINE NEGATIVE (NEGATIVE); PROTEIN,URINE 100 mg/dL (NEGATIVE); URINE SPECIFIC GRAVITY 1.011; UROBILINOGEN,URINE NEGATIVE mg/dL (<2.0)
[2016-09-04 09:07] LABS: ANION GAP 13 (5-19); BLOOD UREA NITROGEN 32 mg/dL (7-20); CALCIUM 9.3 mg/dL (8.4-10.2); CARBON DIOXIDE 21 mmol/L (22-30); CHLORIDE 110 mmol/L (98-107); CREATININE RESULT 2.12 mg/dL (0.52-1.25); GLUCOSE 106 mg/dL (75-110); POTASSIUM 4.4 mmol/L (3.6-5.0); SODIUM 143.8 mmol/L (137-145)
[2016-09-04 11:02] LABS: HEMATOCRIT 41.3 % (37.9-51.0); HGB HCT DIFFERENCE 0.7; MEAN CORPUSCULAR HEMOGLOBIN 29.6 pg (27.0-33.4); MEAN CORPUSCULAR HGB CONC 33.8 g/dL (32.0-36.0); MEAN CORPUSCULAR VOLUME 88 fl (80-97); RED BLOOD COUNT 4.72 10^6/uL (4.35-5.55); RED CELL DISTRIBUTION WIDTH 15.9 % (11.5-14.0); WHITE BLOOD COUNT 4.8 10^3/uL (4.0-10.5)
== END ==
LOC: OD 07:34
PROVIDERS: ATTEND Internal Medicine Nephrology
DX: I12.9 Hypertensive chronic kidney disease with stage 1 through stage 4 chronic kidney disease, or unspecified chronic kidney disease (principal); N18.3 Chronic kidney disease, stage 3 (moderate); R80.9 Proteinuria, unspecified
CPT/HCPCS: 36415; 80048; 81001; 85027

== ENCOUNTER → 2017-01-01 | Outpatient (CLI) | payer MEDICARE ==
[2017-01-01 09:53] LABS: HEMATOCRIT 45.4 % (37.9-51.0); HEMOGLOBIN 15.4 g/dL (13.5-17.0); HGB HCT DIFFERENCE 0.8; MEAN CORPUSCULAR HEMOGLOBIN 30.4 pg (27.0-33.4); MEAN CORPUSCULAR HGB CONC 33.8 g/dL (32.0-36.0); MEAN CORPUSCULAR VOLUME 90 fl (80-97); RED BLOOD COUNT 5.05 10^6/uL (4.35-5.55); RED CELL DISTRIBUTION WIDTH 14.2 % (11.5-14.0); WHITE BLOOD COUNT 5.8 10^3/uL (4.0-10.5)
[2017-01-01 09:55] LABS: APPEARANCE,URINE CLEAR; BILIRUBIN,URINE NEGATIVE (NEGATIVE); GLUCOSE, URINE NEGATIVE (NEGATIVE); KETONES,URINE NEGATIVE (NEGATIVE); LEUKOCYTE ESTERASE,URINE NEGATIVE (NEGATIVE); NITRITE,URINE NEGATIVE (NEGATIVE); PROTEIN,URINE 100 mg/dL (NEGATIVE); UROBILINOGEN,URINE NEGATIVE mg/dL (<2.0)
[2017-01-01 10:14] LABS: URINE CREATININE 87.9 mg/dL (22-328)
[2017-01-01 10:21] LABS: ANION GAP 10 (5-19); BLOOD UREA NITROGEN 25 mg/dL (7-20); CALCIUM 9.2 mg/dL (8.4-10.2); CARBON DIOXIDE 24 mmol/L (22-30); CHLORIDE 108 mmol/L (98-107); CREATININE RESULT 2.29 mg/dL (0.52-1.25); GLUCOSE 89 mg/dL (75-110); SODIUM 142.4 mmol/L (137-145)
[2017-01-01 10:29] LABS: URINE PROTEIN 269.8 mg/dL (<12)
== END ==
LOC: OD 09:01
PROVIDERS: ATTEND Internal Medicine Nephrology
DX: N18.3 Chronic kidney disease, stage 3 (moderate) (principal); R80.9 Proteinuria, unspecified; E87.5 Hyperkalemia; M10.00 Idiopathic gout, unspecified site
CPT/HCPCS: 36415; 80048; 81001; 82570; 84156; 85027

== ENCOUNTER → 2017-04-14 | Outpatient (CLI) | payer MEDICARE ==
[2017-04-14 10:28] LABS: HEMATOCRIT 40.8 % (37.9-51.0); HEMOGLOBIN 14.2 g/dL (13.5-17.0); HGB HCT DIFFERENCE 1.8; MEAN CORPUSCULAR HGB CONC 34.9 g/dL (32.0-36.0); MEAN CORPUSCULAR VOLUME 89 fl (80-97); RED BLOOD COUNT 4.59 10^6/uL (4.35-5.55); RED CELL DISTRIBUTION WIDTH 14.4 % (11.5-14.0); WHITE BLOOD COUNT 5.6 10^3/uL (4.0-10.5)
[2017-04-14 10:35] LABS: APPEARANCE,URINE CLEAR; BILIRUBIN,URINE NEGATIVE (NEGATIVE); GLUCOSE, URINE NEGATIVE (NEGATIVE); KETONES,URINE NEGATIVE (NEGATIVE); LEUKOCYTE ESTERASE,URINE NEGATIVE (NEGATIVE); NITRITE,URINE NEGATIVE (NEGATIVE); PROTEIN,URINE 100 mg/dL (NEGATIVE); URINE SPECIFIC GRAVITY 1.011; UROBILINOGEN,URINE NEGATIVE mg/dL (<2.0)
[2017-04-14 10:50] LABS: URINE CREATININE 85.6 mg/dL (22-328)
[2017-04-14 10:55] LABS: ANION GAP 12 (5-19); BLOOD UREA NITROGEN 34 mg/dL (7-20); CALCIUM 9.1 mg/dL (8.4-10.2); CARBON DIOXIDE 23 mmol/L (22-30); CHLORIDE 108 mmol/L (98-107); CREATININE RESULT 2.53 mg/dL (0.52-1.25); GLUCOSE 86 mg/dL (75-110); POTASSIUM 4.8 mmol/L (3.6-5.0)
[2017-04-14 11:01] LABS: BACTERIA,URINE TRACE /HPF; WBC,URINE 0-1 /HPF
[2017-04-14 11:32] LABS: ADD HIVPANEL? NO; HIV (1 AND 2) ANTIBODY NEGATIVE (NEGATIVE)
[2017-04-15 07:42] LABS: COMPLEMENT C4 31 mg/dL (14-44)
[2017-04-15 08:41] LABS: HEPATITIS C VIRUS AB 0.1 s/co ratio (0.0-0.9)
[2017-04-15 09:48] LABS: COMPLEMENT C3 146 mg/dL (82-167)
== END ==
LOC: OD 08:52
PROVIDERS: ATTEND Physician Assistant Medical
DX: I12.9 Hypertensive chronic kidney disease with stage 1 through stage 4 chronic kidney disease, or unspecified chronic kidney disease (principal); N18.4 Chronic kidney disease, stage 4 (severe); R80.9 Proteinuria, unspecified; E87.0 Hyperosmolality and hypernatremia
CPT/HCPCS: 36415; 80048; 81001; 82570; 84156; 85027; 86038; 86160; 86701; 86704; 86803; 86804; 87340; 87350

== ENCOUNTER → 2017-07-16 | Outpatient (CLI) | payer MEDICARE ==
[2017-07-16 08:45] LABS: HEMATOCRIT 43.4 % (37.9-51.0); HEMOGLOBIN 14.7 g/dL (13.5-17.0); MEAN CORPUSCULAR HEMOGLOBIN 30.3 pg (27.0-33.4); MEAN CORPUSCULAR HGB CONC 33.8 g/dL (32.0-36.0); MEAN CORPUSCULAR VOLUME 90 fl (80-97); PLATELET COUNT 207 10^3/uL (150-450); RED BLOOD COUNT 4.84 10^6/uL (4.35-5.55); RED CELL DISTRIBUTION WIDTH 14.5 % (11.5-14.0); WHITE BLOOD COUNT 6.3 10^3/uL (4.0-10.5)
[2017-07-16 08:52] LABS: APPEARANCE,URINE CLEAR; BILIRUBIN,URINE NEGATIVE (NEGATIVE); COLOR,URINE YELLOW; GLUCOSE, URINE NEGATIVE (NEGATIVE); KETONES,URINE NEGATIVE (NEGATIVE); LEUKOCYTE ESTERASE,URINE NEGATIVE (NEGATIVE); NITRITE,URINE NEGATIVE (NEGATIVE); PROTEIN,URINE 100 mg/dL (NEGATIVE); UROBILINOGEN,URINE NEGATIVE mg/dL (<2.0)
[2017-07-16 09:08] LABS: ANION GAP 12 (5-19); BLOOD UREA NITROGEN 30 mg/dL (7-20); CALCIUM 9.4 mg/dL (8.4-10.2); CARBON DIOXIDE 25 mmol/L (22-30); CHLORIDE 106 mmol/L (98-107); GLUCOSE 95 mg/dL (75-110); PHOSPHORUS 4.1 mg/dL (2.5-4.5); POTASSIUM 5.4 mmol/L (3.6-5.0); SODIUM 142.9 mmol/L (137-145)
[2017-07-16 09:10] LABS: URINE CREATININE 74.9 mg/dL (22-328)
[2017-07-16 09:21] LABS: UR PRO/CREAT RATIO RESULT 4.1 mg/mg (0.0-0.2); URINE PROTEIN 303.9 mg/dL (<12)
== END ==
LOC: OD 08:17
PROVIDERS: ATTEND Physician Assistant Medical
DX: I12.9 Hypertensive chronic kidney disease with stage 1 through stage 4 chronic kidney disease, or unspecified chronic kidney disease (principal); N18.3 Chronic kidney disease, stage 3 (moderate); R80.9 Proteinuria, unspecified; E87.5 Hyperkalemia
CPT/HCPCS: 36415; 80048; 81001; 82570; 83970; 84100; 84156; 85027; 86225

== ENCOUNTER → 2017-12-15 | Outpatient (CLI) | payer MEDICARE ==
[2017-12-15 08:54] LABS: HEMOGLOBIN 14.4 g/dL (13.5-17.0); MEAN CORPUSCULAR HEMOGLOBIN 30.8 pg (27.0-33.4); MEAN CORPUSCULAR HGB CONC 34.4 g/dL (32.0-36.0); MEAN CORPUSCULAR VOLUME 90 fl (80-97); PLATELET COUNT 194 10^3/uL (150-450); RED BLOOD COUNT 4.69 10^6/uL (4.35-5.55); RED CELL DISTRIBUTION WIDTH 14.6 % (11.5-14.0); WHITE BLOOD COUNT 7.4 10^3/uL (4.0-10.5)
[2017-12-15 09:08] LABS: APPEARANCE,URINE CLEAR; BILIRUBIN,URINE NEGATIVE (NEGATIVE); COLOR,URINE YELLOW; GLUCOSE, URINE NEGATIVE (NEGATIVE); KETONES,URINE NEGATIVE (NEGATIVE); LEUKOCYTE ESTERASE,URINE NEGATIVE (NEGATIVE); NITRITE,URINE NEGATIVE (NEGATIVE); PROTEIN,URINE 100 mg/dL (NEGATIVE); URINE SPECIFIC GRAVITY 1.012; UROBILINOGEN,URINE NEGATIVE mg/dL (<2.0)
[2017-12-15 09:10] LABS: ANION GAP 14 (5-19); BLOOD UREA NITROGEN 32 mg/dL (7-20); CALCIUM 9.3 mg/dL (8.4-10.2); CARBON DIOXIDE 19 mmol/L (22-30); CHLORIDE 112 mmol/L (98-107); GLUCOSE 93 mg/dL (75-110); POTASSIUM 4.5 mmol/L (3.6-5.0); SODIUM 144.8 mmol/L (137-145)
[2017-12-15 09:30] LABS: URINE CREATININE 88.2 mg/dL (22-328)
[2017-12-15 09:42] LABS: URINE PROTEIN 262.3 mg/dL (<12)
== END ==
LOC: OD 08:05
PROVIDERS: ATTEND Physician Assistant Medical
DX: I12.9 Hypertensive chronic kidney disease with stage 1 through stage 4 chronic kidney disease, or unspecified chronic kidney disease (principal); N18.4 Chronic kidney disease, stage 4 (severe); R80.9 Proteinuria, unspecified; E87.5 Hyperkalemia
CPT/HCPCS: 36415; 80048; 81001; 82570; 84156; 85027

== ENCOUNTER → 2018-04-14 | Outpatient (CLI) | payer MEDICARE ==
[2018-04-14 11:15] LABS: APPEARANCE,URINE CLEAR; BILIRUBIN,URINE NEGATIVE (NEGATIVE); COLOR,URINE YELLOW; GLUCOSE, URINE NEGATIVE (NEGATIVE); KETONES,URINE NEGATIVE (NEGATIVE); LEUKOCYTE ESTERASE,URINE NEGATIVE (NEGATIVE); NITRITE,URINE NEGATIVE (NEGATIVE); PROTEIN,URINE 100 mg/dL (NEGATIVE); URINE SPECIFIC GRAVITY 1.014; UROBILINOGEN,URINE NEGATIVE mg/dL (<2.0)
[2018-04-14 11:18] LABS: HEMATOCRIT 36.4 % (37.9-51.0); HEMOGLOBIN 12.6 g/dL (13.5-17.0); MEAN CORPUSCULAR HGB CONC 34.6 g/dL (32.0-36.0); MEAN CORPUSCULAR VOLUME 90 fl (80-97); PLATELET COUNT 241 10^3/uL (150-450); RED BLOOD COUNT 4.06 10^6/uL (4.35-5.55); RED CELL DISTRIBUTION WIDTH 13.1 % (11.5-14.0); WHITE BLOOD COUNT 7.7 10^3/uL (4.0-10.5)
[2018-04-14 11:41] LABS: ANION GAP 14 (5-19); BLOOD UREA NITROGEN 39 mg/dL (7-20); CARBON DIOXIDE 21 mmol/L (22-30); CHLORIDE 107 mmol/L (98-107); GLUCOSE 89 mg/dL (75-110); SODIUM 141.5 mmol/L (137-145)
[2018-04-14 12:16] LABS: UR PRO/CREAT RATIO RESULT 2.5 mg/mg (0.0-0.2); URINE CREATININE 80.6 mg/dL (22-328); URINE PROTEIN 197.6 mg/dL (<12)
== END ==
LOC: OD 09:56
PROVIDERS: ATTEND Physician Assistant Medical
DX: I12.9 Hypertensive chronic kidney disease with stage 1 through stage 4 chronic kidney disease, or unspecified chronic kidney disease (principal); N18.4 Chronic kidney disease, stage 4 (severe); E87.5 Hyperkalemia; R80.9 Proteinuria, unspecified
CPT/HCPCS: 36415; 80048; 81001; 82570; 83970; 84100; 84156; 85027

== ENCOUNTER 2018-05-10 20:46 | Emergency (ER) | payer MEDICARE ==
[2018-05-10 21:14] LABS: HEMATOCRIT 36.1 % (37.9-51.0); MEAN CORPUSCULAR HEMOGLOBIN 30.2 pg (27.0-33.4); MEAN CORPUSCULAR HGB CONC 33.2 g/dL (32.0-36.0); MEAN CORPUSCULAR VOLUME 91 fl (80-97); PLATELET COUNT 230 10^3/uL (150-450); RED BLOOD COUNT 3.97 10^6/uL (4.35-5.55); RED CELL DISTRIBUTION WIDTH 15.1 % (11.5-14.0); WHITE BLOOD COUNT 15.8 10^3/uL (4.0-10.5)
[2018-05-10 21:25] LABS: PROTHROMBIN TIME 13.7 SEC (11.4-15.4)
[2018-05-10 21:30] LABS: ALANINE AMINOTRANSFERASE 10 U/L (21-72); ALBUMIN 3.7 g/dL (3.5-5.0); ALKALINE PHOSPHATASE 124 U/L (38-126); ANION GAP 12 (5-19); ASPARTATE AMINO TRANSFERASE 15 U/L (17-59); BILIRUBIN,DIRECT 0.3 mg/dL (0.0-0.4); BILIRUBIN,TOTAL 0.6 mg/dL (0.2-1.3); BLOOD UREA NITROGEN 33 mg/dL (7-20); CARBON DIOXIDE 20 mmol/L (22-30); CHLORIDE 108 mmol/L (98-107); GLUCOSE 124 mg/dL (75-110); POTASSIUM 4.6 mmol/L (3.6-5.0); SODIUM 140.1 mmol/L (137-145); TOTAL PROTEIN 6.5 g/dL (6.3-8.2)
--- NOTE | 2018-05-10 21:38 | RADIOLOGY REPORT (SQ) ---
EXAM DESCRIPTION: AP view of the chest CLINICAL HISTORY:77 years Male, difficulty breathing Comparison: None FINDINGS: No focal lung consolidation. No pleural effusion. No pneumothorax. Cardiac and mediastinal silhouette is unremarkable. No acute osseous abnormality. Soft tissues are unremarkable. IMPRESSION: No acute findings. No focal lung consolidation.
[2018-05-10 21:39] LABS: VENOUS BLOOD HCO3 14.2 mmol/L (20-32); VENOUS BLOOD PCO2 21.5 mmHg (35-63); VENOUS BLOOD PH 7.44 (7.30-7.42)
--- NOTE | 2018-05-10 21:39 | ER Document Report ---
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 Patient is brought to the emergency room by EMS after developing fever of 101.4, chills followed by vomiting and then shortness of breath. Patient took 1 g of Tylenol before coming to the hospital. TRAVEL OUTSIDE OF THE [place] IN LAST 30 DAYS: No - HPI Onset: Just prior to arrival Onset/Duration: Sudden Quality of pain: No pain Severity: None Pain Level: Denies Associated symptoms: Chills, Fever, Nausea, Vomiting, Shortness of breath Exacerbated by: Denies Relieved by: Denies Similar symptoms previously: Yes Recently seen / treated by doctor: Yes - Related Data Allergies/Adverse Reactions: iohexol [From Omnipaque] Adverse Reaction (Severe, Verified 07/25/16 10:55) Renal failure contrast dye Allergy (Severe, Uncoded 07/25/16 10:55) kidney failure Past Medical History - General Information source: Patient - Social History Smoking Status: Former Smoker Cigarette use (# per day): No Chew tobacco use (# tins/day): No Frequency of alcohol use: None Drug Abuse: None Lives with: Family Family History: Reviewed & Not Pertinent Patient has suicidal ideation: No Patient has homicidal ideation: No - Past Medical History Cardiac Medical History: Reports: Hx Coronary Artery Disease, Hx Heart Attack - 2013, Hx Hypercholesterolemia, Hx Hypertension - on meds Pulmonary Medical History: Reports: Hx COPD - inhalers, Hx Pneumonia - hx of Denies: Hx Asthma Neurological Medical History: Denies: Hx Cerebrovascular Accident, Hx Seizures Endocrine Medical History: Reports: Hx Hypothyroidism Renal/ Medical History: Reports: Hx Benign Prostatic Hyperplasia. Denies: Hx Peritoneal Dialysis Malignancy Medical History: Reports Hx Renal (Kidney) Cancer Musculoskeletal Medical History: Reports Hx Arthritis - gout Psychiatric Medical History: Denies: Hx Depression Past Surgical History: Reports: Hx Cholecystectomy, Hx Kidney (Renal Surgery) - tumor removed - Immunizations Immunizations up to date: Yes Hx Diphtheria, Pertussis, Tetanus Vaccination: Yes Hx Pneumococcal Vaccination: 02/21/16 Review of Systems - Review of Systems Constitutional: Chills, Fever EENT: No symptoms reported Cardiovascular: No symptoms reported Respiratory: See HPI Gastrointestinal: See HPI Genitourinary: No symptoms reported Male Genitourinary: No symptoms reported Musculoskeletal: No symptoms reported Skin: No symptoms reported Hematologic/Lymphatic: No symptoms reported Neurological/Psychological: No symptoms reported Physical Exam - Vital signs Vitals: Temp Pulse Resp BP Pulse Ox 99.2 F 83 18 158/56 H 88 L 05/10/18 20:48 05/10/18 20:48 05/10/18 20:48 05/10/18 20:48 05/10/18 20:48 Notes: Physical exam: GENERAL: Patient is alert and oriented x3, no acute distress HEAD: Atraumatic, normocephalic. EYES: Pupils equal round and reactive to light, extraocular movements intact, sclera anicteric, conjunctiva are normal. ENT: TMs normal, nares patent, oropharynx clear without exudates. Moist mucous membranes. NECK: Normal range of motion, supple without obvious mass or JVD. LUNGS: Breath sounds clear to auscultation bilaterally and equal. No wheezes rales or rhonchi. HEART: Regular rate and rhythm without murmurs, rubs or gallops. ABDOMEN: Soft, normoactive bowel sounds. No tenderness to palpation. No guarding, no rebound. No masses appreciated. EXTREMITIES: Normal range of motion, no pitting or edema. No clubbing or cyanosis. NEUROLOGICAL: Cranial nerves II through XII grossly intact. Normal speech, moving all extremities. PSYCH: Normal mood, normal affect. SKIN: Warm, Dry, normal turgor, no rashes or lesions noted. Course - Re-evaluation Re-evalutation: 05/10/18 23:52 I discussed the case with Dr. taveras (oncology at [facility]) and she is staffed the case with her attending. All things considered, they felt the patient could go home. It is unclear whether the leukocytosis could be from the biologic infusion yesterday or some early infection. In any event, the patient was walked around the ER and he felt fine. He has been noted to to have oxygen saturations in the 80s on activity. The patient's daughter is aware of this and that he has had this before. The patient has had oxygen therapy brought up to him before and he has been adamant against it because he is worried that he will become reliant upon it and he has always been a very active person. During my conversation with the patient, his oxygen saturation is 87% on room air. However, he is standing up at the time and joking and in no distress at all, which leads me to think that this is where he has been at for his baseline for quite some time. I have asked him to think about oxygen therapy at least at night because it may improve his memory during the day. As far as any respiratory distress, he is quite comfortable at this time. He is not in any distress. Therefore, we will let him go home and he will follow-up with the oncology team. Dr. taveras was going to leave word with the day team and they were going to get in contact with the patient. - Vital Signs Vital signs: Temp Pulse Resp BP Pulse Ox 99.1 F 83 21 H 155/55 H 90 L 05/10/18 23:36 05/10/18 20:48 05/10/18 23:24 05/10/18 23:24 05/10/18 23:24 - Laboratory Result Diagrams: 05/10/18 20:19 05/10/18 20:19 Laboratory results interpreted by me: 05/10/18 05/10/18 05/10/18 20:19 20:19 21:09 WBC 15.8 H RBC 3.97 L Hgb 12.0 L Hct 36.1 L RDW 15.1 H Seg Neuts % (Manual) 94 H Lymphocytes % (Manual) 2 L Abs Neuts (Manual) 14.9 H Abs Lymphs (Manual) 0.3 L VBG pH 7.44 H VBG pCO2 21.5 L VBG HCO3 14.2 L Chloride 108 H Carbon Dioxide 20 L BUN 33 H Creatinine 2.81 H Est GFR ( Amer) 27 L Est GFR (Non-Af Amer) 22 L Glucose 124 H AST 15 L ALT 10 L Urine Protein 05/10/18 23:00 WBC RBC Hgb Hct RDW Seg Neuts % (Manual) Lymphocytes % (Manual) Abs Neuts (Manual) Abs Lymphs (Manual) VBG pH VBG pCO2 VBG HCO3 Chloride Carbon Dioxide BUN Creatinine Est GFR ( Amer) Est GFR (Non-Af Amer) Glucose AST ALT Urine Protein >=500 H - Diagnostic Test Radiology reviewed: Image reviewed, Reports reviewed - Chest x-ray shows no pneumonia - EKG Interpretation by Me Rate: Normal Rhythm: NSR - EKG shows normal sinus rhythm with a no acute ST-T wave changes Discharge - Discharge Clinical Impression: Fever Condition: Stable Disposition: HOME, SELF-CARE Additional Instructions: As we discussed, your white count was elevated. This could be from the infusion received yesterday or could be possible early infection. Blood and urine cultures were sent. The chest x-ray did not show pneumonia. The urine analysis was normal. Your kidney functions have been about the same. I did discuss the case with Dr. taveras and she will leave word with the oncology team at [facility] and they will follow up with you. I want you to take it easy over the next few days.\ Continue your current medicines. Take Tylenol as needed for fever. I want you to return to the emergency room if you develop any further shortness of breath or worsening cough or productive cough or any concerns or getting worse. Otherwise, the team at [facility] may want a follow-up with you this week. If you do not hear from them tomorrow, I would touch base with them and try and call. Additionally, I want you to consider our discussion about oxygen and that it may help improve your memory. You can discuss this further with your local doctor (Dr. Brent Diallo). Referrals: CATHERINE ZIEGLER PA-C [Primary Care Provider] - Follow up as needed DREA PADGETT MD [COMMUNITY BASED STAFF] - Follow up in 3-5 days
[2018-05-10 21:42] LABS: ABSOLUTE LYMPHOCYTES# (MANUAL) 0.3 10^3/uL (0.5-4.7); ABSOLUTE MONOCYTES # (MANUAL) 0.6 10^3/uL (0.1-1.4); ABSOLUTE NEUTROPHILS# (MANUAL) 14.9 10^3/uL (1.7-8.2); BASOPHILS % (MANUAL) 0 % (0-2); EOSINOPHILS % (MANUAL) 0 % (0-6); LYMPHOCYTES % (MANUAL) 2 % (13-45); MONOCYTES % (MANUAL) 4 % (3-13); SEGMENTED NEUTROPHILS % (MAN) 94 % (42-78); TOTAL CELLS COUNTED 100
[2018-05-10 21:45] LABS: ANISOCYTOSIS SLIGHT; OVALOCYTES SLIGHT; PLATELET COMMENT ADEQUATE; POIKILOCYTOSIS SLIGHT; TEAR DROP CELLS SLIGHT
[2018-05-10 23:23] LABS: APPEARANCE,URINE CLEAR; BILIRUBIN,URINE NEGATIVE (NEGATIVE); COLOR,URINE YELLOW; GLUCOSE, URINE NEGATIVE (NEGATIVE); KETONES,URINE NEGATIVE (NEGATIVE); LEUKOCYTE ESTERASE,URINE NEGATIVE (NEGATIVE); NITRITE,URINE NEGATIVE (NEGATIVE); PROTEIN,URINE >=500 mg/dL (NEGATIVE); URINE SPECIFIC GRAVITY 1.014; UROBILINOGEN,URINE NEGATIVE mg/dL (<2.0)
[2018-05-11 00:27] VITALS: BP 131/65
--- NOTE | 2018-05-11 17:23 | EKG REPORT ---
SEVERITY:- OTHERWISE NORMAL ECG - SINUS RHYTHM ATRIAL PREMATURE COMPLEX : Confirmed by: Willa Graham MD 11-May-2018 17:23:02
== END 2018-05-11 00:27 | disposition home or self-care (01) ==
LOC: ER 20:46
DX: R50.9 Fever, unspecified (principal); J44.9 Chronic obstructive pulmonary disease, unspecified; R11.2 Nausea with vomiting, unspecified; C64.9 Malignant neoplasm of unspecified kidney, except renal pelvis; C78.7 Secondary malignant neoplasm of liver and intrahepatic bile duct; Z79.899 Other long term (current) drug therapy; I25.10 Atherosclerotic heart disease of native coronary artery without angina pectoris; I10 Essential (primary) hypertension; Z91.041 Radiographic dye allergy status; Z87.891 Personal history of nicotine dependence; D72.829 Elevated white blood cell count, unspecified
CPT/HCPCS: 36415; 71045; 80053; 81001; 82803; 82962; 83605; 85025; 85610; 87040; 87077; 87086; 93005; 93010; 99285

== ENCOUNTER 2018-05-15 16:18 | Inpatient (IN) | payer MEDICARE ==
[2018-05-15 18:07] LABS: ABSOLUTE EOSINOPHILS # (AUTO) 0.3 10^3/uL (0.0-0.6); ABSOLUTE LYMPHOCYTES (AUTO) 0.7 10^3/uL (0.5-4.7); ABSOLUTE NEUT (AUTO) 3.4 10^3/uL (1.7-8.2); BASOPHILS % (AUTO) 0.2 % (0-2); EOSINOPHILS % (AUTO) 5.3 % (0-6); HEMATOCRIT 35.9 % (37.9-51.0); HEMOGLOBIN 11.9 g/dL (13.5-17.0); MEAN CORPUSCULAR HGB CONC 33.1 g/dL (32.0-36.0); MEAN CORPUSCULAR VOLUME 91 fl (80-97); MONOCYTES % (AUTO) 18.8 % (3-13); PLATELET COUNT 249 10^3/uL (150-450); RED BLOOD COUNT 3.96 10^6/uL (4.35-5.55); RED CELL DISTRIBUTION WIDTH 15.1 % (11.5-14.0); SEGMENTED NEUTROPHILS % (AUTO) 62.7 % (42-78); TOTAL CELLS COUNTED % (AUTO) 100 %; WHITE BLOOD COUNT 5.4 10^3/uL (4.0-10.5)
[2018-05-15 18:09] LABS: ALANINE AMINOTRANSFERASE < 6 U/L (21-72); ALBUMIN 3.8 g/dL (3.5-5.0); ALKALINE PHOSPHATASE 95 U/L (38-126); ANION GAP 9 (5-19); ASPARTATE AMINO TRANSFERASE 24 U/L (17-59); BILIRUBIN,DIRECT 0.5 mg/dL (0.0-0.4); BILIRUBIN,TOTAL 0.8 mg/dL (0.2-1.3); BLOOD UREA NITROGEN 30 mg/dL (7-20); CALCIUM 8.7 mg/dL (8.4-10.2); CARBON DIOXIDE 23 mmol/L (22-30); CHLORIDE 109 mmol/L (98-107); GLUCOSE 108 mg/dL (75-110); POTASSIUM 4.5 mmol/L (3.6-5.0); SODIUM 141.2 mmol/L (137-145); TOTAL PROTEIN 7.3 g/dL (6.3-8.2)
[2018-05-15 18:10] LABS: INTERNATIONAL RATION (INR) 0.98; PROTHROMBIN TIME 13.5 SEC (11.4-15.4)
--- NOTE | 2018-05-15 18:37 | RADIOLOGY REPORT (SQ) ---
EXAM DESCRIPTION: CHEST 2 VIEWS COMPLETED DATE/TIME: 05/15/2018 6:14 pm REASON FOR STUDY: coughing up blood COMPARISON: 05/10/2018. TECHNIQUE: Frontal and lateral radiographic views of the chest acquired. NUMBER OF VIEWS: Two view. LIMITATIONS: None. FINDINGS: LUNGS AND PLEURA: Patchy areas of bibasilar airspace disease have developed. Likely relat ed to pneumonia, particularly in the left lower lobe. Pulmonary hemorrhage could have a similar appe arance. No pneumothorax. No significant pleural fluid. MEDIASTINUM AND HILAR STRUCTURES: No masses or contour abnormalities. HEART AND VASCULAR STRUCTURES: Heart normal size. No evidence for failure. BONES: No acute findings. HARDWARE: None in the chest. OTHER: No other significant finding. IMPRESSION: Basilar airspace infiltrates as above. TECHNICAL DOCUMENTATION: JOB ID: [id number] [facility]- All Rights Reserved Reading location - IP/workstation name: [email or web address]
--- NOTE | 2018-05-15 19:51 | ER Document Report ---
ED General - General Chief Complaint: Cough Stated Complaint: COUGHING BLOOD Time Seen by Provider: 05/15/18 17:05 Notes: Patient is a 77-year-old male with a past medical history of kidney cancer metastatic to the liver currently on monoclonal antibody therapy who presents with coughing blood. Patient was seen 5 days ago for a fever as well as shortness of breath, subsequently discharged home. Patient presents today with a single episode of hemoptysis as his primary concern. Denies history of similar in the past. Nothing improves or worsens his symptoms. States he has had a nonproductive cough previous to that. He has not had recurrence of fever. He did contact his [facility] oncology team who encouraged him to come to the emergency department. TRAVEL OUTSIDE OF THE [place] IN LAST 30 DAYS: No - Related Data Allergies/Adverse Reactions: iohexol [From Omnipaque] Adverse Reaction (Severe, Verified 07/25/16 10:55) Renal failure contrast dye Allergy (Severe, Uncoded 07/25/16 10:55) kidney failure Past Medical History - General Information source: Patient - Social History Smoking Status: Former Smoker Frequency of alcohol use: None Drug Abuse: None Lives with: Spouse/Significant other Family History: Reviewed & Not Pertinent Patient has suicidal ideation: No Patient has homicidal ideation: No - Past Medical History Cardiac Medical History: Reports: Hx Coronary Artery Disease, Hx Heart Attack - 2013, Hx Hypercholesterolemia, Hx Hypertension Pulmonary Medical History: Reports: Hx COPD, Hx Pneumonia - hx of Denies: Hx Asthma Neurological Medical History: Denies: Hx Cerebrovascular Accident, Hx Seizures Endocrine Medical History: Reports: Hx Hypothyroidism Renal/ Medical History: Reports: Hx Benign Prostatic Hyperplasia. Denies: Hx Peritoneal Dialysis Malignancy Medical History: Reports Hx Renal (Kidney) Cancer Musculoskeletal Medical History: Reports Hx Arthritis - gout Psychiatric Medical History: Denies: Hx Depression Past Surgical History: Reports: Hx Cholecystectomy, Hx Kidney (Renal Surgery) - tumor removed - Immunizations Immunizations up to date: Yes Hx Diphtheria, Pertussis, Tetanus Vaccination: Yes Hx Pneumococcal Vaccination: 02/21/16 Review of Systems - Review of Systems Notes: Constitutional: Negative for fever. HENT: Negative for sore throat. Eyes: Negative for visual changes. Cardiovascular: Negative for chest pain. Respiratory: Positive for cough and hemoptysis Gastrointestinal: Negative for abdominal pain, vomiting or diarrhea. Genitourinary: Negative for dysuria. Musculoskeletal: Negative for back pain. Skin: Negative for rash. Neurological: Negative for headaches, weakness or numbness. 10 point ROS negative except as marked above and in HPI. Physical Exam - Vital signs Vitals: Temp Pulse Resp BP Pulse Ox 98.4 F 83 20 157/58 H 93 05/15/18 16:22 05/15/18 16:22 05/15/18 16:22 05/15/18 16:22 05/15/18 16:22 Interpretation: Hypertensive Notes: PHYSICAL EXAMINATION: GENERAL: Elderly, in no acute distress HEAD: Atraumatic, normocephalic. EYES: Pupils equal round and reactive to light, extraocular movements intact, sclera anicteric, conjunctiva are normal. ENT: nares patent, oropharynx clear without exudates. Mild dry mucous membranes. NECK: Normal range of motion, supple without lymphadenopathy LUNGS: Breath sounds somewhat diminished at the bases bilaterally. No wheezes rales or rhonchi. HEART: Regular rate and rhythm without murmurs ABDOMEN: Soft, nontender, normoactive bowel sounds. No guarding, no rebound. No masses appreciated. EXTREMITIES: Normal range of motion, no pitting or edema. No cyanosis. NEUROLOGICAL: No focal neurological deficits. Moves all extremities spontaneously and on command. PSYCH: Normal mood, normal affect. SKIN: Warm, Dry, normal turgor, no rashes or lesions noted. Course - Re-evaluation Re-evalutation: 05/15/18 19:50 Patient presents with hemoptysis, small volume that started earlier today. States he is only coughed up blood on one occasion, does have the rag with him in which he coughed the blood and it is mildly saturated with blood. Patient has a known history of renal cancer metastatic to liver and is actively on immunomodulatory therapy. The patient's vitals at time of my evaluation show mild hypertension and pulse oximetry of 93-95% on room air which is actually better than when he was here earlier this week. Chest x-ray does show bibasilar infiltrates worse on the left which cannot definitively exclude pulmonary hemorrhage. Will obtain CT without contrast as I am unable to use contrast given patient's advanced kidney disease. Patient himself is otherwise nontoxic in appearance, in no respiratory distress. Considerations at this point include possible pneumonia versus acute pulmonary hemorrhage although I do not suspect that the patient has a large volume arterial pulmonary hemorrhage at this point given that he is otherwise well in appearance, not actively coughing blood more than on the first occasion. 05/15/18 21:56 CT does show findings consistent with pneumonia. I have discussed this case with Dr. Dillon who has accepted the patient. She has been started on IV levofloxacin. - Vital Signs Vital signs: Temp Pulse Resp BP Pulse Ox 99.0 F 89 20 157/58 H 97 05/16/18 00:15 05/16/18 02:00 05/16/18 00:15 05/16/18 00:15 05/16/18 00:15 - Laboratory Result Diagrams: 05/15/18 17:32 05/15/18 17:32 Laboratory results interpreted by me: 05/15/18 05/15/18 17:32 17:32 RBC 3.96 L Hgb 11.9 L Hct 35.9 L RDW 15.1 H Monocytes % 18.8 H Chloride 109 H BUN 30 H Creatinine 2.64 H Est GFR ( Amer) 29 L Est GFR (Non-Af Amer) 24 L Direct Bilirubin 0.5 H ALT < 6 L - Diagnostic Test Radiology reviewed: Image reviewed, Reports reviewed Radiology results interpreted by me: 05/15/18 21:59 Chest x-ray: Bilateral lower lobe infiltrates Discharge - Discharge Clinical Impression: Bilateral pulmonary infiltrates on chest x-ray Bilateral pneumonia Qualifiers: Pneumonia type: due to unspecified organism Lung location: lower lobe of lung Q ualified Code(s): J18.1 - Lobar pneumonia, unspecified organism Condition: Fair Disposition: ADMITTED OBSERVATION Admitting Provider: Hospitalist Unit Admitted: Telemetry
--- NOTE | 2018-05-15 20:31 | RADIOLOGY REPORT (SQ) ---
EXAM DESCRIPTION: CT CHEST WITHOUT COMPLETED DATE/TIME: 05/15/2018 8:12 pm REASON FOR STUDY: Hemoptysis COMPARISON: 05/15/[address] of the abdomen. MRI 2012. TECHNIQUE: CT scan performed of the chest without intravenous contrast. Images reviewed with lung, soft tissue and bone windows. Reconstructed coronal and sagittal MPR images reviewed. All images st ored on PACS. All CT scanners at this facility use dose modulation, iterative reconstruction, and/or weight based d osing when appropriate to reduce radiation dose to as low as reasonably achievable (ALARA). [facility]: Dose Right [facility]: CareDose [facility]: Dose Right [facility]: Teradose 4D [facility]: [employer] RADIATION DOSE: CT Rad equipment meets quality standard of care and radiation dose reduction techniq ues were employed. CTDIvol: 12.1 mGy. DLP: 488 mGy-cm. mGy. LIMITATIONS: No technical limitations. FINDINGS: LUNGS AND PLEURA: Patchy mixed interstitial and airspace opacities, multifocal throughout the bilateral lower lobes as seen on radiographs. Bullous emphysema. No dominant mass. Trace pleur al fluid on the left. HILAR AND MEDIASTINAL STRUCTURES: Shotty nodes. No clearly enlarged nodes or mass. HEART AND VASCULAR STRUCTURES: Marked coronary calcification. Aortic calcification. No aneurysm. N o pericardial effusion. UPPER ABDOMEN: Low density lesions in the liver, scattered largely subcentimeter. Chronic appearance as assessed. Heterogeneous tissue involves the upper pole right kidney, possibly involving the live r. Incompletely assessed. THYROID AND OTHER SOFT TISSUES: Slightly heterogeneous 2.4 cm nodule right thyroid. Faint calcificat ions are suggested within. BONES: No significant finding. HARDWARE: None in the chest. OTHER: No other significant findings. IMPRESSION: 1. Patchy lung infiltrates as seen on radiographs. Trace left pleural fluid is also noted. 2. Mass likely in the upper pole of the right kidney, possibly involving the liver. Incompletely ass essed on chest CT. Review of prior imaging suggests a worrisome mass in 2012 noted on MRI. If furth er imaging is performed to evaluate this, consider IV contrasted CT abdomen. 3. Nodule in the right thyroid will need ultrasound followup on elective basis. TECHNICAL DOCUMENTATION: JOB ID: [id number] Quality ID # [id number]: Final reports with documentation of one or more dose reduction techniques (e.g., Au tomated exposure control, adjustment of the mA and/or kV according to patient size, use of iterative reconstruction technique) 2010 [employer]- All Rights Reserved Reading location - IP/workstation name: [email or web address]
[2018-05-15] MEDS ORDERED: RINGERS SOLUTION,LACTATED 1,000 ML IV ONE (21:38)
[2018-05-15] MEDS ORDERED: LEVOFLOXACIN 750 MG/D5W RTU 750 MG/150 ML RTUPB IV ONE (21:38)
[2018-05-15] MEDS ORDERED: GUAIFENESIN SYRP 200 MG/10 ML UDC PO PRN (22:21)
[2018-05-15] MEDS ORDERED: CHLORPHENIRAMINE MALEATE 4 MG TABLET PO ONE (22:21)
[2018-05-15] MEDS ORDERED: IPRATROPIUM/ALBUTEROL 0.5-2.5 MG/3 ML AMPUL NEB PRN (22:21)
[2018-05-15] MEDS ORDERED: ACETAMINOPHEN 325 MG TABLET PO PRN (22:21)
[2018-05-15] MEDS: IPRATROPIUM/ALBUTEROL 0.5-2.5 MG/3 ML AMPUL NEB SCH (23:14)
[2018-05-16] MEDS: IPRATROPIUM/ALBUTEROL 0.5-2.5 MG/3 ML AMPUL NEB SCH ×4 (02:22→20:13)
[2018-05-16 04:22] LABS: ABSOLUTE EOSINOPHILS # (AUTO) 0.1 10^3/uL (0.0-0.6); ABSOLUTE LYMPHOCYTES (AUTO) 0.4 10^3/uL (0.5-4.7); ABSOLUTE MONOCYTES (AUTO) 0.8 10^3/uL (0.1-1.4); ABSOLUTE NEUT (AUTO) 2.7 10^3/uL (1.7-8.2); BASOPHILS % (AUTO) 0.1 % (0-2); EOSINOPHILS % (AUTO) 2.3 % (0-6); HEMATOCRIT 30.8 % (37.9-51.0); HEMOGLOBIN 10.4 g/dL (13.5-17.0); LYMPHOCYTES % (AUTO) 10.8 % (13-45); MEAN CORPUSCULAR HEMOGLOBIN 30.1 pg (27.0-33.4); MEAN CORPUSCULAR HGB CONC 33.8 g/dL (32.0-36.0); MEAN CORPUSCULAR VOLUME 89 fl (80-97); MONOCYTES % (AUTO) 19.7 % (3-13); PLATELET COUNT 186 10^3/uL (150-450); RED BLOOD COUNT 3.46 10^6/uL (4.35-5.55); RED CELL DISTRIBUTION WIDTH 14.8 % (11.5-14.0); SEGMENTED NEUTROPHILS % (AUTO) 67.1 % (42-78); TOTAL CELLS COUNTED % (AUTO) 100 %; WHITE BLOOD COUNT 4.1 10^3/uL (4.0-10.5)
[2018-05-16 04:47] LABS: ANION GAP 8 (5-19); BLOOD UREA NITROGEN 25 mg/dL (7-20); CALCIUM 8.3 mg/dL (8.4-10.2); CARBON DIOXIDE 21 mmol/L (22-30); CHLORIDE 112 mmol/L (98-107); GLUCOSE 111 mg/dL (75-110); SODIUM 140.7 mmol/L (137-145)
[2018-05-16] MEDS: NORMAL SALINE 1000 ML 1,000 ML IV PRN ×2 (05:03→09:53)
[2018-05-16] MEDS: HEPARIN SOD (PORCINE) 5,000 UNIT/ML 1 ML SYRINGE SUBCUT SCH ×3 (05:11→21:29)
--- NOTE | 2018-05-16 06:06 | PDOC H&P ---
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 Patient seen 5 days ago for fever and shortness of breath with unremarkable workup he was discharged home however presents today with a single episode of coughing up a small quantity of bloody material. He denies fever chills nausea vomiting, rhinorrhea, chest pain or shortness of breath. He denies a previous history, infectious contacts, recent antibiotics and is otherwise felt well. In the emergency room he has a CT of the chest notable for patchy infiltrates. He started on empiric Levaquin and referred to the hospitalist for admission. Past Medical History Cardiac Medical History: Reports: Coronary Artery Disease, Myocardial Infarction - 2013, Hyperlipidema, Hypertension Pulmonary Medical History: Reports: Chronic Obstructive Pulmonary Disease (COPD), Pneumonia - hx of Denies: Asthma Neurological Medical History: Denies: Seizures Endocrine Medical History: Reports: Hypothyroidism Malignancy Medical History: Reports: Renal (Kidney) Cancer Musculoskeltal Medical History: Reports: Arthritis - gout Psychiatric Medical History: Denies: Depression Hematology: Reports: Anemia Past Surgical History Past Surgical History: Reports: Cholecystectomy Social History Information Source: Patient Lives with: Spouse/Significant other Smoking Status: Former Smoker Frequency of Alcohol Use: None Hx Recreational Drug Use: No Drugs: None Hx Prescription Drug Abuse: No - Advance Directive Resuscitation Status: Full Code Family History Family History: Hypertension Parental Family History Reviewed: Yes Children Family History Reviewed: Yes Sibling(s) Family History Reviewed.: Yes Medication/Allergy Home Medications: Amlodipine Besylate 10 mg PO DAILY 05/03/15 Aspirin [Aspirin 81 mg Chewable Tablet] 81 mg PO DAILY 05/03/15 Atorvastatin Calcium [Lipitor 10 mg Tablet] 10 mg PO DAILY 05/03/15 Budesonide/Formoterol Fumarate [Symbicort HFA 80-4.5 mcg Inhaler 6.9 gm] 2 puff IH BID 05/03/15 Cholecalciferol (Vitamin D3) [Vitamin D3] 2,000 unit PO DAILY 05/03/15 Losartan Potassium 50 mg PO DAILY 05/03/15 Methadone HCl 5 mg PO DAILY PRN 05/03/15 Metoprolol Tartrate [Lopressor 25 mg Tablet] 12.5 mg PO Q12 05/03/15 Pregabalin [Lyrica 75 mg Capsule] 75 mg PO Q12 05/03/15 Tiotropium [place] [Spiriva Handihaler 18 mcg/dose (30 Dose)] 1 cap IH DAILY 05/03/15 Clonidine HCl [Clonidine HCl ER] 0.1 mg PO DAILY 07/01/16 Febuxostat [Uloric 40 mg Tablet] 40 mg PO DAILY 07/01/16 Oxycodone HCl/Acetaminophen [Percocet 5-325 mg Tablet] 1 tab PO ASDIR PRN #25 tablet 07/08/16 Tamsulosin HCl [Flomax 0.4 mg Cap.sr] 0.4 mg PO DAILY #14 cap.sr.24h 07/08/16 Ciprofloxacin HCl [Cipro 500 mg Tablet] 500 mg PO BID #14 tablet 07/25/16 Allergies/Adverse Reactions: iohexol [From Omnipaque] Adverse Reaction (Severe, Verified 07/25/16 10:55) Renal failure contrast dye Allergy (Severe, Uncoded 07/25/16 10:55) kidney failure Review of Systems Constitutional: ABSENT: chills, fever(s), headache(s), weight gain, weight loss Eyes: ABSENT: visual disturbances Ears: ABSENT: hearing changes Cardiovascular: ABSENT: chest pain, dyspnea on exertion, edema, orthropnea, palpitations Respiratory: ABSENT: cough, hemoptysis Gastrointestinal: ABSENT: abdominal pain, constipation, diarrhea, hematemesis, hematochezia, nausea, vomiting Genitourinary: ABSENT: dysuria, hematuria Musculoskeletal: ABSENT: joint swelling Integumentary: ABSENT: rash, wounds Neurological: ABSENT: abnormal gait, abnormal speech, confusion, dizziness, focal weakness, syncope Psychiatric: ABSENT: anxiety, depression, homidical ideation, suicidal ideation Endocrine: ABSENT: cold intolerance, heat intolerance, polydipsia, polyuria Hematologic/Lymphatic: ABSENT: easy bleeding, easy bruising Physical Exam Vital Signs: Temp Pulse Resp BP Pulse Ox 98.5 F 84 16 148/50 H 93 05/16/18 03:31 05/16/18 03:31 05/16/18 03:31 05/16/18 03:31 05/16/18 03:31 Intake & Output 05/14/18 05/15/18 05/16/18 11:59 11:59 11:59 Intake Total 1150 Balance 1150 Weight 84.5 kg General appearance: PRESENT: no acute distress, well-developed, well-nourished Head exam: PRESENT: atraumatic, normocephalic Eye exam: PRESENT: conjunctiva pink, EOMI, PERRLA. ABSENT: scleral icterus Ear exam: PRESENT: normal external ear exam Mouth exam: PRESENT: moist, tongue midline Teeth exam: PRESENT: poor dentation Neck exam: ABSENT: carotid bruit, JVD, lymphadenopathy, thyromegaly Respiratory exam: PRESENT: crackles, prolonged expiratory phas, symmetrical. ABSENT: rales, rhonchi, stridor, tachypnea, wheezes Cardiovascular exam: PRESENT: RRR, +S2, systolic murmur. ABSENT: diastolic murmur, rubs Pulses: PRESENT: normal dorsalis pedis pul Vascular exam: PRESENT: normal capillary refill GI/Abdominal exam: PRESENT: normal bowel sounds, soft. ABSENT: distended, guarding, mass, organolmegaly, rebound, tenderness Rectal exam: PRESENT: deferred Extremities exam: PRESENT: full ROM. ABSENT: calf tenderness, clubbing, pedal edema Neurological exam: PRESENT: alert, awake, oriented to person, oriented to place, oriented to time, oriented to situation, CN II-XII grossly intact. ABSENT: m otor sensory deficit Psychiatric exam: PRESENT: appropriate affect, normal mood. ABSENT: homicidal ideation, suicidal ideation Skin exam: PRESENT: dry, intact, warm. ABSENT: cyanosis, rash Results Laboratory Results: 05/16/18 03:49 05/16/18 03:49 05/15/18 05/15/18 05/15/18 17:32 17:32 17:32 WBC 5.4 RBC 3.96 L Hgb 11.9 L Hct 35.9 L MCV 91 MCH 30.0 MCHC 33.1 RDW 15.1 H Plt Count 249 Seg Neutrophils % 62.7 Lymphocytes % 13.0 Monocytes % 18.8 H Eosinophils % 5.3 Basophils % 0.2 Absolute Neutrophils 3.4 Absolute Lymphocytes 0.7 Absolute Monocytes 1.0 Absolute Eosinophils 0.3 Absolute Basophils 0.0 Sodium 141.2 Potassium 4.5 Chloride 109 H Carbon Dioxide 23 Anion Gap 9 BUN 30 H Creatinine 2.64 H Est GFR ( Amer) 29 L Est GFR (Non-Af Amer) 24 L Glucose 108 Calcium 8.7 Total Bilirubin 0.8 AST 24 ALT < 6 L Alkaline Phosphatase 95 Total Protein 7.3 Albumin 3.8 Blood Type Cancelled Antibody Screen Cancelled 05/15/18 05/16/18 05/16/18 18:45 03:49 03:49 WBC 4.1 RBC 3.46 L Hgb 10.4 L Hct 30.8 L MCV 89 MCH 30.1 MCHC 33.8 RDW 14.8 H Plt Count 186 Seg Neutrophils % 67.1 Lymphocytes % 10.8 L Monocytes % 19.7 H Eosinophils % 2.3 Basophils % 0.1 Absolute Neutrophils 2.7 Absolute Lymphocytes 0.4 L Absolute Monocytes 0.8 Absolute Eosinophils 0.1 Absolute Basophils 0.0 Sodium 140.7 Potassium 4.0 Chloride 112 H Carbon Dioxide 21 L Anion Gap 8 BUN 25 H Creatinine 2.36 H Est GFR ( Amer) 32 L Est GFR (Non-Af Amer) 27 L Glucose 111 H Calcium 8.3 L Total Bilirubin AST ALT Alkaline Phosphatase Total Protein Albumin Blood Type O POSITIVE Antibody Screen NEGATIVE Impressions: Chest X-Ray 05/15/18 17:18 IMPRESSION: Basilar airspace infiltrates as above. Chest CT 05/15/18 19:08 IMPRESSION: 1. Patchy lung infiltrates as seen on radiographs. Trace left pleural fluid is also noted. 2. Mass likely in the upper pole of the right kidney, possibly involving the liver. Incompletely assessed on chest CT. Review of prior imaging suggests a worrisome mass in 2013 noted on MRI. If further imaging is performed to evaluate this, consider IV contrasted CT abdomen. 3. Nodule in the right thyroid will need ultrasound followup on elective basis. Assessment & Plan - Diagnosis (1) Bilateral pneumonia Qualifiers: Pneumonia type: due to unspecified organism Lung location: lower lobe of lung Qualified Code(s): J18.1 - Lobar pneumonia, unspecified organism Is this a current diagnosis for this admission?: Yes Plan: Pneumonia care set deployed, symptomatic management, empiric antibiotics, follow-up CBC, blood culture and pulmonology consult (2) Hemoptysis Is this a current diagnosis for this admission?: Yes Plan: Pulmonology consult and consideration of bronchoscopy. (3) Renal cancer Is this a current diagnosis for this admission?: Yes Plan: [facility] oncology unavailable by pager thus far. Follow-up attempt by daytime team - Time Time Spent: 50 to 70 Minutes - Inpatient Certification Medical Necessity: Need Close Monitoring Due to Risk of Patient Decompensation
[2018-05-16] MEDS ORDERED: ACETAMINOPHEN 325 MG TABLET PO PRN (08:03)
[2018-05-16] MEDS: FLUTICASONE NASAL SPRAY 50 MCG/SPRY 120 SPRAY/16 GM NASL SCH ×2 (09:54→21:29)
--- NOTE | 2018-05-16 12:20 | PDOC PROGRESS REPORT ---
Subjective Progress Note for:: 05/16/18 Subjective:: This is a 77 years old male patient with past medical history significant for renal cell carcinoma status post laparoscopic nephrectomy and now with metastasis to the liver and currently on monoclonal antibody treatment at [facility], presents with chief complaint of fever shortness of breath and cough. Patient reports an episode of bloodstained sputum. His CT scan and chest x-ray are compatible bilateral lower lobe infiltrates. Currently he is getting Levaquin. Reason For Visit: COPD EXACERBATION PNEUMONIA, RENAL CA W METS Physical Exam Vital Signs: Temp Pulse Resp BP Pulse Ox 98.0 F 102 H 20 168/63 H 92 05/16/18 11:48 05/16/18 11:48 05/16/18 11:48 05/16/18 11:48 05/16/18 11:48 Intake & Output 05/15/18 05/16/18 05/17/18 06:59 06:59 06:59 Intake Total 1834 1240 Output Total 1000 600 Balance 834 640 Weight 84.5 kg General appearance: PRESENT: mild distress Head exam: PRESENT: atraumatic Eye exam: PRESENT: conjunctiva pink Neck exam: ABSENT: carotid bruit, JVD, lymphadenopathy, thyromegaly Respiratory exam: PRESENT: crackles - Bibasilar Cardiovascular exam: PRESENT: bradycardia GI/Abdominal exam: PRESENT: normal bowel sounds, soft. ABSENT: distended, guarding, mass, organolmegaly, rebound, tenderness Neurological exam: PRESENT: alert, awake, oriented to time, oriented to situation Results Laboratory Results: 05/16/18 03:49 05/16/18 03:49 05/15/18 05/15/18 05/15/18 17:32 17:32 17:32 WBC 5.4 RBC 3.96 L Hgb 11.9 L Hct 35.9 L MCV 91 MCH 30.0 MCHC 33.1 RDW 15.1 H Plt Count 249 Seg Neutrophils % 62.7 Lymphocytes % 13.0 Monocytes % 18.8 H Eosinophils % 5.3 Basophils % 0.2 Absolute Neutrophils 3.4 Absolute Lymphocytes 0.7 Absolute Monocytes 1.0 Absolute Eosinophils 0.3 Absolute Basophils 0.0 Sodium 141.2 Potassium 4.5 Chloride 109 H Carbon Dioxide 23 Anion Gap 9 BUN 30 H Creatinine 2.64 H Est GFR ( Amer) 29 L Est GFR (Non-Af Amer) 24 L Glucose 108 Calcium 8.7 Total Bilirubin 0.8 AST 24 ALT < 6 L Alkaline Phosphatase 95 Total Protein 7.3 Albumin 3.8 Blood Type Cancelled Antibody Screen Cancelled 05/15/18 05/16/18 05/16/18 18:45 03:49 03:49 WBC 4.1 RBC 3.46 L Hgb 10.4 L Hct 30.8 L MCV 89 MCH 30.1 MCHC 33.8 RDW 14.8 H Plt Count 186 Seg Neutrophils % 67.1 Lymphocytes % 10.8 L Monocytes % 19.7 H Eosinophils % 2.3 Basophils % 0.1 Absolute Neutrophils 2.7 Absolute Lymphocytes 0.4 L Absolute Monocytes 0.8 Absolute Eosinophils 0.1 Absolute Basophils 0.0 Sodium 140.7 Potassium 4.0 Chloride 112 H Carbon Dioxide 21 L Anion Gap 8 BUN 25 H Creatinine 2.36 H Est GFR ( Amer) 32 L Est GFR (Non-Af Amer) 27 L Glucose 111 H Calcium 8.3 L Total Bilirubin AST ALT Alkaline Phosphatase Total Protein Albumin Blood Type O POSITIVE Antibody Screen NEGATIVE Impressions: Chest X-Ray 05/15/18 17:18 IMPRESSION: Basilar airspace infiltrates as above. Chest CT 05/15/18 19:08 IMPRESSION: 1. Patchy lung infiltrates as seen on radiographs. Trace left pleural fluid is also noted. 2. Mass likely in the upper pole of the right kidney, possibly involving the liver. Incompletely assessed on chest CT. Review of prior imaging suggests a worrisome mass in 2012 noted on MRI. If further imaging is performed to evaluate this, consider IV contrasted CT abdomen. 3. Nodule in the right thyroid will need ultrasound followup on elective basis. 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 (4) Hypertension Qualifiers: Hypertension type: essential hypertension Qualified Code(s): I10 - Essential (primary) hypertension Is this a current diagnosis for this admission?: Yes Plan: Continue amlodipine and metoprolol (5) Hyperlipidemia Qualifiers: Hyperlipidemia type: unspecified Qualified Code(s): E78.5 - Hyperlipidemia, unspecified Is this a current diagnosis for this admission?: Yes Plan: Continue Lipitor (6) BPH (benign prostatic hyperplasia) Qualifiers: Lower urinary tract symptom detail: unspecified Is this a current diagnosis for this admission?: Yes Plan: Continue finasteride (7) COPD (chronic obstructive pulmonary disease) Qualifiers: Emphysema type: unspecified Is this a current diagnosis for this admission?: Yes Plan: Continue as needed bronchodilators. (8) Gout Is this a current diagnosis for this admission?: Yes Plan: In remission.
[2018-05-16] MEDS: TIOTROPIUM BROMIDE DPI 5 CAP/KIT (18 MCG/CAP) IH SCH (15:07)
[2018-05-16] MEDS ORDERED: METOPROLOL TARTRATE 50 MG TABLET PO SCH (17:15)
[2018-05-16] MEDS: CLONIDINE HCL 0.1 MG TABLET PO SCH (17:25)
[2018-05-16] MEDS: ATORVASTATIN CALCIUM 10 MG TABLET PO SCH (17:25)
[2018-05-16] MEDS: TAMSULOSIN HCL 0.4 MG CAP.SR.24H PO SCH (17:25)
[2018-05-16] MEDS: METOPROLOL TARTRATE 25 MG TABLET PO SCH (17:29)
[2018-05-16] MEDS: AMLODIPINE BESYLATE 10 MG TABLET PO SCH (17:43)
[2018-05-16] MEDS: ASPIRIN 81 MG TABLET, CHEWABLE PO SCH (17:43)
[2018-05-16] MEDS: LOSARTAN POTASSIUM 50 MG TABLET PO SCH (21:26)
[2018-05-16] MEDS: PREGABALIN 100 MG CAPSULE PO SCH (21:26)
[2018-05-16] MEDS: BUDESONIDE/FORMOTEROL 80-4.5 MCG 60 PUFF/6.9 GM MDI IH SCH (21:31)
[2018-05-16] MEDS: LEVOFLOXACIN 250 MG/D5W RTU 250 MG/50 ML RTUPB IV SCH (21:32)
[2018-05-17] MEDS: IPRATROPIUM/ALBUTEROL 0.5-2.5 MG/3 ML AMPUL NEB SCH ×4 (02:17→19:54)
[2018-05-17] MEDS: METOPROLOL TARTRATE 25 MG TABLET PO SCH ×2 (05:15→18:09)
[2018-05-17] MEDS: PREGABALIN 100 MG CAPSULE PO SCH ×3 (05:15→21:25)
[2018-05-17] MEDS: HEPARIN SOD (PORCINE) 5,000 UNIT/ML 1 ML SYRINGE SUBCUT SCH ×3 (05:19→21:32)
--- NOTE | 2018-05-17 09:17 | CONSULTATION REPORT E ---
Consultation Report NAME: MATT TIERNEY : 1940 AGE: 77Y DATE: 05/16/2018 ROOM: 531 A TO: RHETT ALVES M.D. FROM: SAM GLORIA M.D. Requesting Physician HISTORY OF PRESENT ILLNESS: The patient is a 77-year-old male who came in with increased shortness of breath and coughing blood. The patient has a history of kidney cancer metastatic to the liver and currently on monoclonal antibody therapy by Oncology from [place]. Five days ago the patient claims he had a fever and shortness of breath with unremarkable workup and discharged home. The patient denies any increasing cough with purulent sputum production. Yesterday the patient was admitted. The patient coughed up about 1/2 tsp of blood clots. Denies any postnasal discharge or nose bleeding. There was no recurrence of hemoptysis this morning. He claimed that he is feeling a lot better. PAST MEDICAL HISTORY: Coronary artery disease, myocardial infarction in 2013, hyperlipidemia, hypertension, history of COPD and pneumonia. History of hypothyroidism and kidney cancer with liver metastases. History of gouty arthritis and anemia. PAST SURGICAL HISTORY: Cholecystectomy. SOCIAL HISTORY: The patient lives with spouse. The patient is a former smoker. Denies illicit drug use or alcohol abuse. FAMILY HISTORY: Hypertension. MEDICATIONS INCLUDE: 1. Norvasc 10 mg daily. 2. Aspirin 81 mg. 3. Lipitor 10 mg daily. 4. Symbicort 80 mcg. 5. Vitamin D3. 6. Losartan. 7. Methadone. 8. Metoprolol. 9. Lyrica. 10. Spiriva. 11. Clonidine. 12. Uloric. 13. Oxycodone. 14. Tylenol. 15. Flomax. 16. Cipro. ALLERGIES: OMNIPAQUE IV CONTRAST ALLERGY. REVIEW OF SYSTEMS: CONSTITUTIONAL: Denies any fever or chills. EYES: No jaundice or pallor or eye pain. EARS, NOSE, AND THROAT: No drainage, no discharge. CHEST AND LUNGS: Complains of increased coughing with occasional purulent sputum and 1 episode of hemoptysis, about 1/2 tsp, on the day of admission. GENITOURINARY: No dysuria or hematuria. CARDIOVASCULAR: No chest pain. EXTREMITIES: No bipedal edema. GASTROINTESTINAL: No abdominal pain, constipation, diarrhea, or hematemesis. MUSCULOSKELETAL: No joint swelling. SKIN: No rash or wounds. PHYSICAL EXAMINATION: GENERAL: The patient is awake, alert, oriented x3, afebrile, not in apparent severe respiratory distress. VITAL SIGNS: Temperature 98.3 with a T-max of 98.5. Heart rate is 107, blood pressure is 174/55, respirations are 19, saturation is 92% on ventilatory mask, FIO2 31%. EYES: No jaundice or pallor. EARS, NOSE, AND THROAT: No ear drainage. No nasal discharge. CHEST AND LUNGS: No wheezing, no rhonchi, no coarse crackles. CARDIOVASCULAR: S1, S2 distinct. Normal rate and regular rhythm. ABDOMEN: Flabby. Positive bowel sounds. Soft, nondistended, nontender. EXTREMITIES: No joint swelling or cellulitis. LABORATORY: CBC done today showed white count of 4.1, hemoglobin is 10.4, hematocrit is 30.8, INR is 0.98. Chemistry done today showed sodium is 140.7, potassium is 4, chloride 112, CO2 21, BUN 35, creatinine 2.36, glucose 111, calcium 8.3. The SGOT yesterday was 24, normal. SGPT was 6, low. Alkaline phosphatase was 95, total protein 7.3, albumin 3.8. Chest CT scan done yesterday showed bibasilar opacities suspicious for pneumonia or inflammatory process bibasilar. ASSESSMENT: 1. Hemoptysis, possible pneumonia. Interstitial pneumonitis due to recent immunotherapy could not be completely excluded. 2. COPD/emphysema, currently stable, not in acute bronchospasm. 3. History of kidney cancer with liver metastases, currently on immunotherapy. PLAN AND RECOMMENDATIONS: 1. Continue Spiriva inhaler 1 capsule daily. 2. Continue antibiotics. 3. Albuterol inhaler 2 puffs 4 times a day as needed. 4. Will follow. DICTATING PHYSICIAN: RHETT ALVES MD,CHIP,MPH [id number] PHY#: [id number] ID: [id number] JOB#: [id number] ACCT: [id number] cc:RHETT ALVES M.D. > [facility]
[2018-05-17] MEDS: ASPIRIN 81 MG TABLET, CHEWABLE PO SCH (09:26)
[2018-05-17] MEDS: AMLODIPINE BESYLATE 10 MG TABLET PO SCH (09:26)
[2018-05-17] MEDS: FINASTERIDE 5 MG TABLET PO SCH (09:27)
[2018-05-17] MEDS: FLUTICASONE NASAL SPRAY 50 MCG/SPRY 120 SPRAY/16 GM NASL SCH ×2 (09:28→21:26)
[2018-05-17] MEDS: FEBUXOSTAT 40 MG TABLET PO SCH (09:28)
[2018-05-17] MEDS: TIOTROPIUM BROMIDE DPI 5 CAP/KIT (18 MCG/CAP) IH SCH (09:29)
[2018-05-17] MEDS: BUDESONIDE/FORMOTEROL 80-4.5 MCG 60 PUFF/6.9 GM MDI IH SCH ×2 (09:31→21:27)
[2018-05-17] MEDS ORDERED: TIOTROPIUM BROMIDE DPI 5 CAP/KIT (18 MCG/CAP) IH SCH (10:00)
[2018-05-17] MEDS: CLONIDINE HCL 0.1 MG TABLET PO SCH (18:09)
[2018-05-17] MEDS: TAMSULOSIN HCL 0.4 MG CAP.SR.24H PO SCH (18:09)
[2018-05-17] MEDS: ATORVASTATIN CALCIUM 10 MG TABLET PO SCH (18:09)
--- NOTE | 2018-05-17 18:20 | PDOC PROGRESS REPORT ---
Subjective Progress Note for:: 05/17/18 Subjective:: No adverse events overnight. His cough is been mildly productive. No fevers. Breathing comfortably on 3 L nasal cannula. He apparently desaturated whenever they took him off of oxygen earlier. Comfortable at rest. His talked extensively about the immunotherapy he is taking. Reason For Visit: COPD EXACERBATION PNEUMONIA, RENAL CA W METS Physical Exam Vital Signs: Temp Pulse Resp BP Pulse Ox 98.3 F 81 17 146/48 H 94 05/17/18 16:00 05/17/18 16:00 05/17/18 16:00 05/17/18 16:00 05/17/18 16:00 Intake & Output 05/16/18 05/17/18 05/18/18 06:59 06:59 06:59 Intake Total 1834 2802 739 Output Total 1000 2750 500 Balance 834 52 239 Weight 84.5 kg 83.8 kg General appearance: PRESENT: no acute distress, cooperative, disheveled Respiratory exam: PRESENT: unlabored. ABSENT: accessory muscle use, crackles - Right lower lobe, rhonchi, tachypnea, wheezes Cardiovascular exam: PRESENT: RRR, +S1, +S2, systolic murmur - 3 out of 6 crescendo decrescendo murmur heard best at the left upper sternal border, but pretty much audible over the entire chest Vascular exam: PRESENT: normal capillary refill GI/Abdominal exam: PRESENT: normal bowel sounds, soft. ABSENT: distended, guarding, rebound, tenderness Extremities exam: ABSENT: clubbing, pedal edema Musculoskeletal exam: PRESENT: normal inspection. ABSENT: deformity Neurological exam: PRESENT: alert, awake, oriented to person, oriented to place, oriented to time, oriented to situation Psychiatric exam: PRESENT: appropriate affect, normal mood Skin exam: PRESENT: dry, warm Results Laboratory Results: 05/16/18 03:49 05/16/18 03:49 Impressions: Chest X-Ray 05/15/18 17:18 IMPRESSION: Basilar airspace infiltrates as above. Chest CT 05/15/18 19:08 IMPRESSION: 1. Patchy lung infiltrates as seen on radiographs. Trace left pleural fluid is also noted. 2. Mass likely in the upper pole of the right kidney, possibly involving the liver. Incompletely assessed on chest CT. Review of prior imaging suggests a worrisome mass in 2013 noted on MRI. If further imaging is performed to evaluate this, consider IV contrasted CT abdomen. 3. Nodule in the right thyroid will need ultrasound followup on elective basis. Assessment & Plan - Diagnosis (1) Bilateral pneumonia Qualifiers: Pneumonia type: due to unspecified organism Lung location: lower lobe of lung Qualified Code(s): J18.1 - Lobar pneumonia, unspecified organism Is this a current diagnosis for this admission?: Yes Plan: Continue current antibiotic regimen. Cultures are pending. He had a blood culture that turned positive earlier but I suspect it is a contaminant because it is a Propionibacterium. (2) Metastatic renal cell carcinoma to liver Is this a current diagnosis for this admission?: Yes Plan: He is currently on therapy at [facility], as his was sure to tell me - Time Time Spent with patient: 15-24 minutes
[2018-05-17] MEDS: LOSARTAN POTASSIUM 50 MG TABLET PO SCH (21:25)
[2018-05-17] MEDS: LEVOFLOXACIN 250 MG/D5W RTU 250 MG/50 ML RTUPB IV SCH (21:28)
[2018-05-18] MEDS: IPRATROPIUM/ALBUTEROL 0.5-2.5 MG/3 ML AMPUL NEB SCH ×4 (02:20→19:47)
[2018-05-18 03:58] LABS: ABSOLUTE EOSINOPHILS # (AUTO) 0.5 10^3/uL (0.0-0.6); ABSOLUTE LYMPHOCYTES (AUTO) 0.5 10^3/uL (0.5-4.7); ABSOLUTE MONOCYTES (AUTO) 0.7 10^3/uL (0.1-1.4); ABSOLUTE NEUT (AUTO) 4.6 10^3/uL (1.7-8.2); BASOPHILS % (AUTO) 0.1 % (0-2); EOSINOPHILS % (AUTO) 7.4 % (0-6); HEMATOCRIT 29.1 % (37.9-51.0); HEMOGLOBIN 9.8 g/dL (13.5-17.0); LYMPHOCYTES % (AUTO) 8.4 % (13-45); MEAN CORPUSCULAR HEMOGLOBIN 30.2 pg (27.0-33.4); MEAN CORPUSCULAR HGB CONC 33.7 g/dL (32.0-36.0); MEAN CORPUSCULAR VOLUME 90 fl (80-97); MONOCYTES % (AUTO) 11.7 % (3-13); PLATELET COUNT 199 10^3/uL (150-450); RED BLOOD COUNT 3.25 10^6/uL (4.35-5.55); SEGMENTED NEUTROPHILS % (AUTO) 72.4 % (42-78); TOTAL CELLS COUNTED % (AUTO) 100 %; WHITE BLOOD COUNT 6.3 10^3/uL (4.0-10.5)
[2018-05-18 04:20] LABS: ANION GAP 11 (5-19); BLOOD UREA NITROGEN 22 mg/dL (7-20); CALCIUM 8.6 mg/dL (8.4-10.2); CARBON DIOXIDE 19 mmol/L (22-30); CHLORIDE 111 mmol/L (98-107); GLUCOSE 106 mg/dL (75-110); POTASSIUM 3.9 mmol/L (3.6-5.0); SODIUM 140.7 mmol/L (137-145)
[2018-05-18] MEDS: METOPROLOL TARTRATE 25 MG TABLET PO SCH ×2 (05:44→17:44)
[2018-05-18] MEDS: PREGABALIN 100 MG CAPSULE PO SCH ×3 (05:44→21:51)
[2018-05-18] MEDS: HEPARIN SOD (PORCINE) 5,000 UNIT/ML 1 ML SYRINGE SUBCUT SCH ×2 (05:47→14:06)
[2018-05-18] MEDS: FEBUXOSTAT 40 MG TABLET PO SCH (09:24)
[2018-05-18] MEDS: TIOTROPIUM BROMIDE DPI 5 CAP/KIT (18 MCG/CAP) IH SCH (09:24)
[2018-05-18] MEDS: FLUTICASONE NASAL SPRAY 50 MCG/SPRY 120 SPRAY/16 GM NASL SCH ×2 (09:24→22:00)
[2018-05-18] MEDS: BUDESONIDE/FORMOTEROL 80-4.5 MCG 60 PUFF/6.9 GM MDI IH SCH ×2 (09:25→21:58)
[2018-05-18] MEDS: AMLODIPINE BESYLATE 10 MG TABLET PO SCH (09:25)
[2018-05-18] MEDS: ASPIRIN 81 MG TABLET, CHEWABLE PO SCH (09:26)
[2018-05-18] MEDS: FINASTERIDE 5 MG TABLET PO SCH (09:26)
[2018-05-18] MEDS: CLONIDINE HCL 0.1 MG TABLET PO SCH (17:43)
[2018-05-18] MEDS: ATORVASTATIN CALCIUM 10 MG TABLET PO SCH (17:43)
[2018-05-18] MEDS: TAMSULOSIN HCL 0.4 MG CAP.SR.24H PO SCH (17:44)
--- NOTE | 2018-05-18 19:31 | PDOC PROGRESS REPORT ---
Subjective Progress Note for:: 05/18/18 Subjective:: No adverse events overnight. No new complaints. He still has a cough, but is not as productive as previous. No fevers. He has remained on oxygen because even on 3 L, his saturations often get down to around 90%. Reason For Visit: COPD EXACERBATION PNEUMONIA, RENAL CA W METS Physical Exam Vital Signs: Temp Pulse Resp BP Pulse Ox 98.0 F 83 16 149/53 H 93 05/18/18 16:00 05/18/18 16:00 05/18/18 16:00 05/18/18 16:00 05/18/18 16:00 Intake & Output 05/17/18 05/18/18 05/19/18 06:59 06:59 06:59 Intake Total 2802 1425 354 Output Total 2750 1050 860 Balance 52 375 -506 Weight 83.8 kg 83.4 kg General appearance: PRESENT: no acute distress, cooperative, disheveled Respiratory exam: PRESENT: unlabored, crackles - Right lower lobe but not as prominent as yesterday. ABSENT: accessory muscle use, rhonchi, tachypnea, wheezes Cardiovascular exam: PRESENT: RRR, +S1, +S2, systolic murmur - 3 out of 6 crescendo decrescendo murmur heard best at the left upper sternal border, but pretty much audible over the entire chest Vascular exam: PRESENT: normal capillary refill GI/Abdominal exam: PRESENT: normal bowel sounds, soft. ABSENT: distended, guarding, rebound, tenderness Extremities exam: ABSENT: clubbing, pedal edema Musculoskeletal exam: PRESENT: normal inspection. ABSENT: deformity Neurological exam: PRESENT: alert, awake, oriented to person, oriented to place, oriented to time, oriented to situation Psychiatric exam: PRESENT: appropriate affect, normal mood Skin exam: PRESENT: dry, warm Results Laboratory Results: 05/18/18 03:43 05/18/18 03:43 05/18/18 05/18/18 03:43 03:43 WBC 6.3 RBC 3.25 L Hgb 9.8 L Hct 29.1 L MCV 90 MCH 30.2 MCHC 33.7 RDW 15.0 H Plt Count 199 Seg Neutrophils % 72.4 Lymphocytes % 8.4 L Monocytes % 11.7 Eosinophils % 7.4 H Basophils % 0.1 Absolute Neutrophils 4.6 Absolute Lymphocytes 0.5 Absolute Monocytes 0.7 Absolute Eosinophils 0.5 Absolute Basophils 0.0 Sodium 140.7 Potassium 3.9 Chloride 111 H Carbon Dioxide 19 L Anion Gap 11 BUN 22 H Creatinine 2.32 H Est GFR ( Amer) 33 L Est GFR (Non-Af Amer) 27 L Glucose 106 Calcium 8.6 Impressions: Chest X-Ray 05/15/18 17:18 IMPRESSION: Basilar airspace infiltrates as above. Chest CT 05/15/18 19:08 IMPRESSION: 1. Patchy lung infiltrates as seen on radiographs. Trace left pleural fluid is also noted. 2. Mass likely in the upper pole of the right kidney, possibly involving the liver. Incompletely assessed on chest CT. Review of prior imaging suggests a worrisome mass in 2012 noted on MRI. If further imaging is performed to evaluate this, consider IV contrasted CT abdomen. 3. Nodule in the right thyroid will need ultrasound followup on elective basis. Assessment & Plan - Diagnosis (1) Bilateral pneumonia Qualifiers: Pneumonia type: due to unspecified organism Lung location: lower lobe of lung Qualified Code(s): J18.1 - Lobar pneumonia, unspecified organism Is this a current diagnosis for this admission?: Yes Plan: Continue current antibiotic regimen. Cultures are pending. He had a blood culture that turned positive earlier but it is a contaminant because it is a Propionibacterium. 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
[2018-05-18] MEDS: LOSARTAN POTASSIUM 50 MG TABLET PO SCH (21:51)
[2018-05-18] MEDS: LEVOFLOXACIN 250 MG/D5W RTU 250 MG/50 ML RTUPB IV SCH (21:53)
[2018-05-19] MEDS: IPRATROPIUM/ALBUTEROL 0.5-2.5 MG/3 ML AMPUL NEB SCH ×4 (01:53→20:01)
[2018-05-19] MEDS: METOPROLOL TARTRATE 25 MG TABLET PO SCH ×2 (05:35→17:02)
[2018-05-19] MEDS: PREGABALIN 100 MG CAPSULE PO SCH ×3 (05:35→21:58)
--- NOTE | 2018-05-19 10:07 | PROGRESS NOTE E ---
Progress Note NAME: MATT TIERNEY : 1940 AGE: 77Y DATE: 05/18/2018 ROOM: 531 SUBJECTIVE: The patient is a 77-year-old male who came in with bilateral pulmonary infiltrate bibasilarly and treated for pneumonia. Had an episode of severe cough persistence earlier today and coughed up old blood clots about 1 tsp. Denies any fever, chills, vomiting, diarrhea. Denies any increasing cough or purulent sputum production or chest pain. OBJECTIVE: GENERAL: The patient is awake, alert, coherent, oriented x3, afebrile, not in apparent respiratory distress. VITAL SIGNS: The temperature is 98 degrees Fahrenheit with a T-max of 98.6, heart rate 84, blood pressure 149/53 and saturation is 94% on 3 L. EYES: No jaundice or pallor. EARS, NOSE, AND THROAT: No ear drainage. No nasal discharge. CHEST AND LUNGS: No wheezing, no rhonchi, no coarse crackles. CARDIOVASCULAR: S1, S2 distinct. Normal rate, regular rhythm. ABDOMEN: Flabby. Positive bowel sounds. Soft, nondistended, nontender. EXTREMITIES: No joint swelling. No cellulitis. LABORATORY: CBC done today showed white count of 6.3, hemoglobin is 9.8, hematocrit is 29.1, and platelet count is 199. Chemistries done today showed sodium is 140, potassium is 3.9, chloride 111, carbon dioxide is 19, BUN is 32, creatinine is 2.32. Glucose 106 and calcium is 8.6. ASSESSMENT: 1. HEMOPTYSIS, RECURRENT, TODAY 1 TSP. 2. INTERSTITIAL PNEUMONITIS BIBASILARLY, MORE ON THE RIGHT THAN THE LEFT. PNEUMONIA COULD NOT BE COMPLETELY EXCLUDED. PLAN/RECOMMENDATIONS: 1. Schedule patient for flexible bronchoscopy on Wednesday morning. To exclude infectious etiology. 2. Continue Levaquin. Continue Spiriva inhaler. DICTATING PHYSICIAN: RHETT ALVES MD,CHIP,MPH [id number] PHY#: [id number] ID: [id number] JOB#: [id number] ACCT: [id number] cc: > MTDD
[2018-05-19] MEDS: FINASTERIDE 5 MG TABLET PO SCH (10:36)
[2018-05-19] MEDS: AMLODIPINE BESYLATE 10 MG TABLET PO SCH (10:36)
[2018-05-19] MEDS: FLUTICASONE NASAL SPRAY 50 MCG/SPRY 120 SPRAY/16 GM NASL SCH ×2 (10:37→21:59)
[2018-05-19] MEDS: FEBUXOSTAT 40 MG TABLET PO SCH (10:37)
[2018-05-19] MEDS: BUDESONIDE/FORMOTEROL 80-4.5 MCG 60 PUFF/6.9 GM MDI IH SCH ×2 (10:37→22:15)
[2018-05-19] MEDS: TIOTROPIUM BROMIDE DPI 5 CAP/KIT (18 MCG/CAP) IH SCH (10:37)
[2018-05-19 14:19] LABS: ABSOLUTE EOSINOPHILS # (AUTO) 0.4 10^3/uL (0.0-0.6); ABSOLUTE LYMPHOCYTES (AUTO) 0.6 10^3/uL (0.5-4.7); ABSOLUTE MONOCYTES (AUTO) 0.8 10^3/uL (0.1-1.4); ABSOLUTE NEUT (AUTO) 6.8 10^3/uL (1.7-8.2); BASOPHILS % (AUTO) 0.2 % (0-2); EOSINOPHILS % (AUTO) 5.2 % (0-6); HEMATOCRIT 32.7 % (37.9-51.0); HEMOGLOBIN 11.2 g/dL (13.5-17.0); LYMPHOCYTES % (AUTO) 6.5 % (13-45); MEAN CORPUSCULAR HEMOGLOBIN 30.3 pg (27.0-33.4); MEAN CORPUSCULAR HGB CONC 34.2 g/dL (32.0-36.0); MEAN CORPUSCULAR VOLUME 89 fl (80-97); PLATELET COUNT 294 10^3/uL (150-450); RED BLOOD COUNT 3.69 10^6/uL (4.35-5.55); SEGMENTED NEUTROPHILS % (AUTO) 79.1 % (42-78); TOTAL CELLS COUNTED % (AUTO) 100 %; WHITE BLOOD COUNT 8.5 10^3/uL (4.0-10.5)
[2018-05-19 14:23] LABS: INTERNATIONAL RATION (INR) 1.07; PROTHROMBIN TIME 14.4 SEC (11.4-15.4)
[2018-05-19 14:24] LABS: PARTIAL THROMBOPLASTIN TIME 40.3 SEC (23.5-35.8)
[2018-05-19 14:38] LABS: ANION GAP 12 (5-19); BLOOD UREA NITROGEN 25 mg/dL (7-20); CALCIUM 9.3 mg/dL (8.4-10.2); CARBON DIOXIDE 23 mmol/L (22-30); CHLORIDE 106 mmol/L (98-107); GLUCOSE 103 mg/dL (75-110); POTASSIUM 4.2 mmol/L (3.6-5.0)
[2018-05-19] MEDS: TAMSULOSIN HCL 0.4 MG CAP.SR.24H PO SCH (17:02)
[2018-05-19] MEDS: ATORVASTATIN CALCIUM 10 MG TABLET PO SCH (17:02)
[2018-05-19] MEDS: CLONIDINE HCL 0.1 MG TABLET PO SCH (17:02)
--- NOTE | 2018-05-19 18:25 | PDOC PROGRESS REPORT ---
Subjective Progress Note for:: 05/19/18 Subjective:: No adverse events overnight. Still on oxygen at 3 L. He has times when he goes up to the mid 90s but apparently he desaturates frequently. I told him he may require oxygen whenever he goes home. He coughed up another small amount of reddish sputum. He was seen by Dr. Metzger today who is scheduling him for a bronchoscopy. Reason For Visit: COPD EXACERBATION PNEUMONIA, RENAL CA W METS Physical Exam Vital Signs: Temp Pulse Resp BP Pulse Ox 97.5 F 81 20 148/52 H 95 05/19/18 15:58 05/19/18 15:58 05/19/18 15:58 05/19/18 15:58 05/19/18 15:58 Intake & Output 05/18/18 05/19/18 05/20/18 06:59 06:59 06:59 Intake Total 1425 824 520 Output Total 1050 1260 860 Balance 375 -436 -340 Weight 83.4 kg 83.5 kg General appearance: PRESENT: no acute distress, cooperative, disheveled Respiratory exam: PRESENT: unlabored, crackles - Right lower lobe but not as prominent as yesterday. ABSENT: accessory muscle use, rhonchi, tachypnea, wheezes Cardiovascular exam: PRESENT: RRR, +S1, +S2, systolic murmur - 3 out of 6 crescendo decrescendo murmur heard best at the left upper sternal border, but pretty much audible over the entire chest Vascular exam: PRESENT: normal capillary refill GI/Abdominal exam: PRESENT: normal bowel sounds, soft. ABSENT: distended, guarding, rebound, tenderness Extremities exam: ABSENT: clubbing, pedal edema Musculoskeletal exam: PRESENT: normal inspection. ABSENT: deformity Neurological exam: PRESENT: alert, awake, oriented to person, oriented to place, oriented to time, oriented to situation Psychiatric exam: PRESENT: appropriate affect, normal mood Skin exam: PRESENT: dry, warm Results Laboratory Results: 05/19/18 13:59 05/19/18 13:59 05/19/18 05/19/18 13:59 13:59 WBC 8.5 RBC 3.69 L Hgb 11.2 L Hct 32.7 L MCV 89 MCH 30.3 MCHC 34.2 RDW 15.0 H Plt Count 294 Seg Neutrophils % 79.1 H Lymphocytes % 6.5 L Monocytes % 9.0 Eosinophils % 5.2 Basophils % 0.2 Absolute Neutrophils 6.8 Absolute Lymphocytes 0.6 Absolute Monocytes 0.8 Absolute Eosinophils 0.4 Absolute Basophils 0.0 Sodium 141.0 Potassium 4.2 Chloride 106 Carbon Dioxide 23 Anion Gap 12 BUN 25 H Creatinine 2.39 H Est GFR ( Amer) 32 L Est GFR (Non-Af Amer) 26 L Glucose 103 Calcium 9.3 05/16/18 15:03 Sputum Gram Stain - Final 05/16/18 15:03 Sputum Sputum Culture - Final NORMAL SREEDHAR Impressions: Chest X-Ray 05/15/18 17:18 IMPRESSION: Basilar airspace infiltrates as above. Chest CT 05/15/18 19:08 IMPRESSION: 1. Patchy lung infiltrates as seen on radiographs. Trace left pleural fluid is also noted. 2. Mass likely in the upper pole of the right kidney, possibly involving the liver. Incompletely assessed on chest CT. Review of prior imaging suggests a worrisome mass in 2012 noted on MRI. If further imaging is performed to evaluate this, consider IV contrasted CT abdomen. 3. Nodule in the right thyroid will need ultrasound followup on elective basis. Assessment & Plan - Diagnosis (1) Bilateral pneumonia Qualifiers: Pneumonia type: due to unspecified organism Lung location: lower lobe of lung Qualified Code(s): J18.1 - Lobar pneumonia, unspecified organism Is this a current diagnosis for this admission?: Yes Plan: Continue current antibiotic regimen. Cultures are negative thus far. He had a blood culture that turned positive earlier but it is a contaminant because it is a Propionibacterium. He is scheduled for a bronchoscopy tomorrow as noted above. 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 His wants us to call [facility] with every decision that we make to see if it is okay with them, I told her that they would probably want us to go ahead and do we had to do to treat his pneumonia. - Time Time Spent with patient: 15-24 minutes
[2018-05-19] MEDS ORDERED: DEXTROSE 40% GEL 15 GM TUBE PO PRN ×2 (20:37)
[2018-05-19] MEDS ORDERED: GLUCAGON,HUMAN RECOMB 1 MG INJ SUBCUT PRN (20:37)
[2018-05-19] MEDS ORDERED: DEXTROSE 50%-WATER 25 GM/50 ML DISP.SYRIN IV PRN ×2 (20:37)
[2018-05-19] MEDS: LEVOFLOXACIN 250 MG TABLET PO SCH (21:57)
[2018-05-19] MEDS: LOSARTAN POTASSIUM 50 MG TABLET PO SCH (21:57)
--- NOTE | 2018-05-19 22:02 | RADIOLOGY REPORT (SQ) ---
EXAM DESCRIPTION: XR CHEST 1 VIEW COMPLETED DATE/TME: 05/19/2018 20:00 CLINICAL HISTORY: 77 years, Male, HEMOPTYSIS COMPARISON: 05/10/2018 chest NUMBER OF VIEWS: 1 TECHNIQUE: Portable upright chest LIMITATIONS: None. FINDINGS: Heart size is normal. Atheromatous change thoracic aorta. Osteopenia. No pneumothorax. Interval worsening of reticulonodular changes in the right upper lobe and right lung base as well as some equivocal reticulonodular change in the left lung base suggesting worsening pneumonitis. No pneumothorax IMPRESSION: Findings suggestive of worsening pneumonitis, as above copyright 2010 [employer]- All Rights Reserved
[2018-05-20] MEDS: IPRATROPIUM/ALBUTEROL 0.5-2.5 MG/3 ML AMPUL NEB SCH ×3 (02:24→20:33)
[2018-05-20] MEDS ORDERED: DIPHENHYDRAMINE HCL 50 MG/ML VIAL ONE (07:18)
[2018-05-20] MEDS ORDERED: ONDANSETRON HCL INJ/PF 4 MG/2 ML SDV ONE (07:18)
[2018-05-20] MEDS ORDERED: EPINEPHRINE INJ 1 MG/10 ML DISP.SYRIN ONE (07:19)
[2018-05-20] MEDS ORDERED: NALOXONE HCL INJ/PF 0.4 MG/1 ML SDV ONE (07:19)
[2018-05-20] MEDS ORDERED: FLUMAZENIL INJ 0.5 MG/5 ML VIAL ONE (07:19)
[2018-05-20] MEDS ORDERED: GLUCAGON,HUMAN RECOMB 1 MG INJ ONE (07:19)
[2018-05-20] MEDS ORDERED: BENZOCAINE 20% AEROSOL SPRAY 60 GM ONE (07:25)
[2018-05-20] MEDS ORDERED: LIDOCAINE 2% JELLY 30 ML TUBE ONE (07:26)
[2018-05-20] MEDS ORDERED: LIDOCAINE 2% INJ (20 MG/ML) 20 ML MDV ONE (07:26)
[2018-05-20] MEDS ORDERED: EPINEPHRINE INJ/PF 1 MG/1 ML AMPULE ONE (07:27)
[2018-05-20] MEDS: MIDAZOLAM 2 MG/2 ML INJ ONE ×11 (08:40→09:05)
[2018-05-20] MEDS: FENTANYL CITRATE INJ/PF 100 MCG/2 ML AMPUL ONE ×4 (08:44→09:04)
[2018-05-20] MEDS ORDERED: IPRATROPIUM/ALBUTEROL 0.5-2.5 MG/3 ML AMPUL NEB ONE (10:00)
[2018-05-20] MEDS: AMLODIPINE BESYLATE 10 MG TABLET PO SCH (11:45)
[2018-05-20] MEDS: PREGABALIN 100 MG CAPSULE PO SCH ×2 (11:45→17:43)
[2018-05-20] MEDS: METOPROLOL TARTRATE 25 MG TABLET PO SCH (11:45)
[2018-05-20] MEDS: FINASTERIDE 5 MG TABLET PO SCH (11:46)
[2018-05-20] MEDS: TIOTROPIUM BROMIDE DPI 5 CAP/KIT (18 MCG/CAP) IH SCH (11:47)
[2018-05-20] MEDS: BUDESONIDE/FORMOTEROL 80-4.5 MCG 60 PUFF/6.9 GM MDI IH SCH ×2 (11:48→21:21)
[2018-05-20] MEDS: FEBUXOSTAT 40 MG TABLET PO SCH (11:49)
--- NOTE | 2018-05-20 12:15 | EKG REPORT ---
SEVERITY:- NORMAL ECG - SINUS RHYTHM : Confirmed by: Paco Gleason MD 20-May-2018 12:15:26
--- NOTE | 2018-05-20 13:22 | PROGRESS NOTE E ---
Progress Note NAME: MATT TIERNEY : 1940 AGE: 77Y DATE: 05/19/2018 ROOM: 531 SUBJECTIVE: The patient is a 77-year-old male who came in with hemoptysis, recurrent. Had another episode of hemoptysis today, about 1/2 teaspoon of dark blood. No fever, no chills, no nausea or vomiting. Denies pleuritic chest pain or abdominal pain. I spoke to the patient's oncologist at [facility], Dr. Kaur, today. He agreed for flexible bronchoscopy with bronchial washing, possible biopsy if needed. Dr. Kaur feels that this may be due to interstitial pneumonitis, and if hemoptysis is worsening, we might have to give the patient prednisone. OBJECTIVE: GENERAL: The patient is awake, alert, coherent, oriented x3, afebrile, not in apparent severe respiratory distress. VITAL SIGNS: Temperature 97.5, T-max of 98.8. Heart rate 81, blood pressure 148/52, respiratory rate 20, saturation 95% on nasal cannula 3 liters. EYES: No conjunctival pallor. ENT: No ear drainage, no nasal discharge. CHEST/LUNGS: No wheezing, no rhonchi, no coarse crackles. CARDIOVASCULAR: S1, S2 distinct. Regular rate and rhythm. ABDOMEN: Flabby. Positive bowel sounds. Soft, nondistended, nontender. EXTREMITIES: No joint swelling, no cellulitis. LABORATORY: CBC done today shows white count 8.5, hemoglobin 11.2, hematocrit 32.7, platelet count 294. PT today is 14.4, INR 1.07, PTT 40.3. Chemistry done today showed sodium of 141, potassium 4.2, chloride 106, CO2 of 23, BUN 25, creatinine 2.39, glucose 103, calcium 9.3. ASSESSMENT: 1. HEMOPTYSIS. Small amount, 1/2 teaspoon today. 2. PULMONARY INFILTRATES BIBASILAR. Possibly due to interstitial pneumonitis. Pneumonia cannot be completely excluded. 3. KIDNEY CANCER WITH LIVER METASTASIS. PLAN: 1. Will schedule the patient for flexible bronchoscopy tomorrow with bronchoalveolar lavage bibasilar. Consider endobronchial biopsy if we find endobronchial tumors or lesions. 2. Continue antibiotics. 3. Consider blood pressure medications. DICTATING PHYSICIAN: RHETT ALVES MD,CHIP,MPH [id number] [id number] PHY#: [id number] ID: [id number] JOB#: [id number] ACCT: [id number] cc: > MTDD
[2018-05-20] MEDS: NAFCILLIN SODIUM 2 GM in DEXTROSE 5%-WATER 100 ML IV SCH ×3 (15:14→21:20)
[2018-05-20] MEDS: FLUTICASONE NASAL SPRAY 50 MCG/SPRY 120 SPRAY/16 GM NASL SCH ×2 (15:15→21:21)
[2018-05-20] MEDS: TAMSULOSIN HCL 0.4 MG CAP.SR.24H PO SCH (17:43)
[2018-05-20] MEDS: ATORVASTATIN CALCIUM 10 MG TABLET PO SCH (17:43)
[2018-05-20] MEDS: CLONIDINE HCL 0.1 MG TABLET PO SCH (17:43)
--- NOTE | 2018-05-20 19:57 | PDOC PROGRESS REPORT ---
Subjective Progress Note for:: 05/20/18 Subjective:: No adverse events overnight. No new complaints. He is been afebrile. He had his bronchoscopy yesterday, apparently tolerated it well and the results are pending. Reason For Visit: COPD EXACERBATION PNEUMONIA, RENAL CA W METS Physical Exam Vital Signs: Temp Pulse Resp BP Pulse Ox 98.0 F 78 15 128/50 H 90 L 05/20/18 16:00 05/20/18 16:00 05/20/18 16:00 05/20/18 16:00 05/20/18 16:00 Pulse Oximeter Continuous Start: 05/20/18 08:12 Freq: RTQ4 Status: Active Protocol: Document 05/20/18 12:30 [facility] [place] (Rec: 05/20/18 12:46 [facility] [place] [id number]) Pulse Oximetry Assessment Oxygen Saturation (92-100) 92 Oxygen Flow Rate (L/min) 3 Oxygen Delivery Method Nasal Cannula Fraction of Inspired Oxygen (FIO2) 32 Equipment Usage Initial Set Up Continuous Pulse Oximeter 24 Hour Charge Charge Now Continuous SpO2 Machine # N 4 Intake & Output 05/19/18 05/20/18 05/21/18 06:59 06:59 06:59 Intake Total 464 549 7150 Output Total 1260 1210 1010 Balance -436 -272 670 Weight 83.5 kg 82.9 kg General appearance: PRESENT: no acute distress, cooperative, disheveled Respiratory exam: PRESENT: unlabored, crackles - Right lower lobe but not as prominent as yesterday. ABSENT: accessory muscle use, rhonchi, tachypnea, wheezes Cardiovascular exam: PRESENT: RRR, +S1, +S2, systolic murmur - 3 out of 6 crescendo decrescendo murmur heard best at the left upper sternal border, but pretty much audible over the entire chest Vascular exam: PRESENT: normal capillary refill GI/Abdominal exam: PRESENT: normal bowel sounds, soft. ABSENT: distended, guarding, rebound, tenderness Extremities exam: ABSENT: clubbing, pedal edema Musculoskeletal exam: PRESENT: normal inspection. ABSENT: deformity Neurological exam: PRESENT: alert, awake, oriented to person, oriented to place, oriented to time, oriented to situation Psychiatric exam: PRESENT: appropriate affect, normal mood Skin exam: PRESENT: dry, warm Results Laboratory Results: 05/19/18 13:59 05/19/18 13:59 05/15/18 22:14 Blood Blood Culture - Final Staphylococcus Aureus Impressions: Chest CT 05/15/18 19:08 IMPRESSION: 1. Patchy lung infiltrates as seen on radiographs. Trace left pleural fluid is also noted. 2. Mass likely in the upper pole of the right kidney, possibly involving the liver. Incompletely assessed on chest CT. Review of prior imaging suggests a worrisome mass in 2013 noted on MRI. If further imaging is performed to evaluate this, consider IV contrasted CT abdomen. 3. Nodule in the right thyroid will need ultrasound followup on elective basis. Chest X-Ray 05/19/18 20:00 IMPRESSION: Findings suggestive of worsening pneumonitis, as above copyright 2011 [employer]- All Rights Reserved Assessment & Plan - Diagnosis (1) Bilateral pneumonia Qualifiers: Pneumonia type: due to unspecified organism Lung location: lower lobe of suly ng Qualified Code(s): J18.1 - Lobar pneumonia, unspecified organism Is this a current diagnosis for this admission?: Yes Plan: Continue current antibiotic regimen. Cultures are negative thus far. He had a bronchoscopy yesterday biopsies are pending to help us determine if this is an interstitial pneumonia. He could have developed a pneumonitis from his immunotherapy, and if so, it will hopefully respond to steroids. 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 His wants us to call [facility] with every decision that we make to see if it is okay with them, I told her that they would probably want us to go ahead and do we had to do to treat his pneumonia and other acute issues. (3) MSSA bacteremia Is this a current diagnosis for this admission?: Yes Plan: He had one blood culture that the lab thought was a Propionibacterium, but has turned out to be an MSSA. He does not really look like a patient with an MSSA bacteremia, because he just does not look toxic. However, given his frailty and his immunosuppressed state, I am going to go ahead and start treatment with IV nafcillin, and will get an echocardiogram, hopefully with good enough views to be able to rule out endocarditis. - Time Time Spent with patient: 25-34 minutes
[2018-05-20] MEDS: LEVOFLOXACIN 250 MG TABLET PO SCH (21:21)
--- NOTE | 2018-05-20 23:50 | XCELERA REPORT ---
[address] [address] Transthoracic Echocardiogram Report Name: MATT TIERNEY Age: 77 yrs Gender: Male : 1940 Patient Status: Inpatient Patient Location: [address] [place] [address] Study Date: 05/20/2018 08:15 PM Height: 70 in Weight: 185 lb BSA: 2.0 m2 Procedure: A two-dimensional transthoracic echocardiogram with color flow and Doppler was performed. The study was technically difficult with many images being suboptimal in quality. Reason For Study: mssa bacteremia/ r/o endocarditis History: mssa bacteremia/ r/o endocarditis. Ordering Physician: LINDA MANDEL Performed By: Mickie Florian Interpretation Summary RECOMMEND TITO TO LOOK FOR VEGETATIONS. The left ventricle is normal in size. There is mild concentric left ventricular hypertrophy. LV EF is 60% Left ventricular systolic function is normal. Doppler measurements suggest impaired left ventricular relaxation, which is associated with grade I/IV or mild diastolic dysfunction The left ventricular wall motion is normal. There is no thrombus. The right ventricle is mildly dilated. The right ventricular systolic function is normal. The right atrium is normal. The left atrial size is normal. There is mild mitral annular calcification. There is no evidence of mitral valve prolapse. There is no vegetation seen on the mitral valve. There is no mitral valve stenosis. There is a trace amount of mitral regurgitation There is no aortic valvular vegetation. There is mild aortic stenosis There is a peak gradient of 36 mm of Hg. There is no LVOT obstruction. There is a mild amount of aortic regurgitation There is no tricuspid stenosis. There is a trace amount of tricuspid regurgitation Right ventricular systolic pressure is normal. RVSP is 23 to 28 mm of Hg , with RA mean of 5 to 10. There is no pulmonic valvular stenosis. There is no pulmonic valvular regurgitation. The inferior vena cava appeared normal and decreased > 50% with respiration (RAP 5-10 mmHg) There is no pericardial effusion. RECOMMEND TITO TO LOOK FOR VEGETATIONS. MMode/2D Measurements & Calculations RVDd: 3.0 cm LVIDd: 5.3 cm FS: 31.8 % Ao root diam: 3.1 cm IVSd: 1.2 cm LVIDs: 3.6 cm EDV(Teich): 137.5 ml Ao root area: 7.8 cm2 LVPWd: 1.2 cm ESV(Teich): 55.9 ml LA dimension: 3.2 cm EF(Teich): 59.3 % LVOT diam: 2.0 cm LVOT area: 3.2 cm2 Doppler Measurements & Calculations MV E max kumar: MV P1/2t max kumar: Ao V2 max: AI max kumar: 94.7 cm/sec 92.9 cm/sec 389.3 cm/sec 383.4 cm/sec MV A max kumar: MV P1/2t: 69.1 msec Ao max PG: AI max P.5 cm/sec MVA(P1/2t): 3.2 cm2 60.6 mmHg 58.9 mmHg MV E/A: 0.80 MV dec slope: Ao V2 mean: AI dec slope: 302.7 cm/sec 189.6 cm/sec2 393.8 cm/sec2 Ao mean PG: AI P1/2t: MV dec time: 39.3 mmHg 592.1 msec 0.19 sec Ao V2 VTI: 93.8 cm CAN(I,D): 1.2 cm2 CAN(V,D): 1.2 cm2 LV V1 max PG: SV(LVOT): 116.1 ml PA V2 max: TR max kumar: 8.8 mmHg 123.5 cm/sec 208.7 cm/sec LV V1 mean PG: PA max PG: TR max P.9 mmHg 6.1 mmHg 17.4 mmHg LV V1 max: 148.1 cm/sec LV V1 mean: 117.9 cm/sec LV V1 VTI: 36.1 cm AV P1/2t-pr_phl: MV P1/2t-pr_phl: 483.9 msec 69.1 msec Left Ventricle The left ventricle is normal in size. There is mild concentric left ventricular hypertrophy. LV EF is 60%. Left ventricular systolic function is normal. Doppler measurements suggest impaired left ventricular relaxation, which is associated with grade I/IV or mild diastolic dysfunction. The left ventricular wall motion is normal. There is no thrombus. Right Ventricle The right ventricle is mildly dilated. The right ventricular systolic function is normal. Atria The right atrium is normal. The left atrial size is normal. Mitral Valve There is mild mitral annular calcification. There is no evidence of mitral valve prolapse. There is no vegetation seen on the mitral valve. There is no mitral valve stenosis. There is a trace amount of mitral regurgitation. Aortic Valve There is no aortic valvular vegetation. There is mild aortic stenosis. There is a peak gradient of 36 mm of Hg. There is no LVOT obstruction. There is a mild amount of aortic regurgitation. Tricuspid Valve There is no tricuspid stenosis. There is a trace amount of tricuspid regurgitation. Right ventricular systolic pressure is normal. RVSP is 23 to 28 mm of Hg , with RA mean of 5 to 10. Pulmonic Valve There is no pulmonic valvular stenosis. There is no pulmonic valvular regurgitation. Great Vessels The aortic root is not well visualized. The inferior vena cava appeared normal and decreased > 50% with respiration (RAP 5-10 mmHg). Effusions There is no pericardial effusion. : LINDA MANDEL > Willa Graham
[2018-05-21] MEDS: LOSARTAN POTASSIUM 50 MG TABLET PO SCH ×2 (00:40→22:49)
[2018-05-21] MEDS: METOPROLOL TARTRATE 25 MG TABLET PO SCH ×3 (00:40→22:49)
[2018-05-21] MEDS ORDERED: NORMAL SALINE 1000 ML 1,000 ML IV ONE (00:45)
[2018-05-21] MEDS: PREGABALIN 100 MG CAPSULE PO SCH ×3 (01:07→18:01)
[2018-05-21] MEDS: NAFCILLIN SODIUM 2 GM in DEXTROSE 5%-WATER 100 ML IV SCH ×6 (01:07→22:45)
[2018-05-21] MEDS: IPRATROPIUM/ALBUTEROL 0.5-2.5 MG/3 ML AMPUL NEB SCH ×4 (02:23→19:43)
--- NOTE | 2018-05-21 06:47 | OPERATIVE REPORT E ---
Operative Report NAME: MATT TIERNEY : 1940 AGE: 77Y DATE OF SURGERY: 05/20/2018 ROOM: 531 PROCEDURE: Flexible bronchoscopy with bronchial washing. INDICATION: Hemoptysis, recurrent, and pulmonary infiltrate. SURGEON: RHETT ALVES M.D. ANESTHESIA: Topical anesthesia using lidocaine to a total of 13 mL and conscious sedation using Versed, total dose of 5.5 mg and fentanyl to a total dose of 100 mcg. BLOOD LOSS: None. COMPLICATIONS: None. OPERATIVE NOTE: Consent was obtained from the patient. The patient verbalized understanding of the indication, risk of potential complications of the procedure, such as bleeding, infection, pneumothorax, myocardial ischemia, and chest pain. Oxygen was provided to the patient at 3 L nasal cannula and titrated to maintain saturation 91-94% during the procedure and postoperatively. The patient was given Versed at increments of 0.5 mg to a total dose of 5.5 mg. The patient was also given fentanyl at increments of 25 mcg to a total dose of 100 mcg. Lidocaine 2% solution was given via nebulizer to a total dose of 5 mL. Hurricaine spray x4 was applied to the oropharyngeal area and 2% lidocaine jelly was applied to the oropharyngeal area by swish and swab. Flexible bronchoscope was inserted through the mouth guard. Lidocaine 1% solution in aliquots of 1 mL was given as the bronchoscope was advanced through the vocal cords and mainstem bronchi and segmental bronchi both lungs. The vocal cords and periglottic structures appeared normal. Trachea appeared normal. Blank appeared sharp at the midline. All blood clots clear non purulent bronchial secretions were removed and suctioned out from both left and right lungs. Blood clots appeared to obstruct the bronchoscope several times. Bronchial washing was performed on both sides. The mainstem bronchi on both sides appeared normal. The bronchus intermediate and the segmental bronchi appeared normal. No endobronchial lesions noted. Blood clot (dark brown secretion) was also suctioned from the right upper lobe posterior segment. There is no active bleeding noted. The patient tolerated the procedure well. The bronchial washing will be sent for cytology, AFB, bacterial, and fungal smears and cultures. DICTATING PHYSICIAN: RHETT ALVES MD,CHIP,MPH [id number] PHY#: [id number] ID: [id number] JOB#: [id number] ACCT: [id number] cc:RHETT ALVES M.D. > BIA
--- NOTE | 2018-05-21 09:31 | RADIOLOGY REPORT (SQ) ---
EXAM DESCRIPTION: CHEST SINGLE VIEW COMPLETED DATE/TIME: 05/21/2018 8:49 am REASON FOR STUDY: hemoptysis COMPARISON: 05/19/2018 EXAM PARAMETERS: NUMBER OF VIEWS: One view. TECHNIQUE: Single frontal radiographic view of the chest acquired. RADIATION DOSE: NA LIMITATIONS: None. FINDINGS: LUNGS AND PLEURA: Parenchymal opacities at the lung bases in the right upper lobe. No imp rovement. MEDIASTINUM AND HILAR STRUCTURES: No masses. Contour normal. HEART AND VASCULAR STRUCTURES: Heart normal in size. Normal vasculature. BONES: No acute findings. HARDWARE: None in the chest. OTHER: No other significant finding. IMPRESSION: Multi lobar pneumonitis without improvement. TECHNICAL DOCUMENTATION: JOB ID: [id number] [employer]- All Rights Reserved Reading location - IP/workstation name: [email or web address]
[2018-05-21] MEDS ORDERED: PREDNISONE 20 MG TABLET PO ONE (11:00)
[2018-05-21] MEDS: AMLODIPINE BESYLATE 10 MG TABLET PO SCH (11:13)
[2018-05-21] MEDS: FEBUXOSTAT 40 MG TABLET PO SCH (11:25)
[2018-05-21] MEDS: FINASTERIDE 5 MG TABLET PO SCH (11:26)
[2018-05-21] MEDS: TIOTROPIUM BROMIDE DPI 5 CAP/KIT (18 MCG/CAP) IH SCH (11:27)
[2018-05-21] MEDS: FLUTICASONE NASAL SPRAY 50 MCG/SPRY 120 SPRAY/16 GM NASL SCH ×2 (11:28→22:50)
[2018-05-21] MEDS: BUDESONIDE/FORMOTEROL 80-4.5 MCG 60 PUFF/6.9 GM MDI IH SCH ×2 (11:29→22:50)
--- NOTE | 2018-05-21 16:55 | PDOC PROGRESS REPORT ---
Subjective Progress Note for:: 05/21/18 Subjective:: No adverse events overnight. No new complaints. No fevers. Cough is been nonproductive. Stable on 3 L nasal cannula. Reason For Visit: COPD EXACERBATION PNEUMONIA, RENAL CA W METS Physical Exam Vital Signs: Temp Pulse Resp BP Pulse Ox 98.4 F 92 18 147/60 H 94 05/21/18 16:46 05/21/18 16:46 05/21/18 16:46 05/21/18 16:46 05/21/18 16:46 Pulse Oximeter Continuous Start: 05/20/18 08:12 Freq: RTQ4 Status: Active Protocol: Document 05/21/18 12:00 [facility] (Rec: 05/21/18 14:04 [facility] [id number]) Pulse Oximetry Assessment Oxygen Saturation (92-100) 94 Oxygen Flow Rate (L/min) 2.5 Oxygen Delivery Method Nasal Cannula Equipment Usage Equipment in Use Continuous SpO2 Machine # 4 Intake & Output 05/20/18 05/21/18 05/22/18 06:59 06:59 06:59 Intake Total 938 2980 200 Output Total 1210 1010 Balance -272 1970 200 Weight 82.9 kg 82.8 kg General appearance: PRESENT: no acute distress, cooperative, disheveled Respiratory exam: PRESENT: unlabored, crackles - Right lower lobe but not as prominent as yesterday. ABSENT: accessory muscle use, rhonchi, tachypnea, wheezes Cardiovascular exam: PRESENT: RRR, +S1, +S2, systolic murmur - 3 out of 6 cresce ndo decrescendo murmur heard best at the left upper sternal border, but pretty much audible over the entire chest Vascular exam: PRESENT: normal capillary refill GI/Abdominal exam: PRESENT: normal bowel sounds, soft. ABSENT: distended, guarding, rebound, tenderness Extremities exam: ABSENT: clubbing, pedal edema Musculoskeletal exam: PRESENT: normal inspection. ABSENT: deformity Neurological exam: PRESENT: alert, awake, oriented to person, oriented to place, oriented to time, oriented to situation Psychiatric exam: PRESENT: appropriate affect, normal mood Skin exam: PRESENT: dry, warm Results Laboratory Results: 05/19/18 13:59 05/19/18 13:59 05/19/18 09:12 Sputum Gram Stain - Final 05/19/18 09:12 Sputum Sputum Culture - Final NORMAL SREEDHAR 05/15/18 22:37 Blood Blood Culture - Final NO GROWTH IN 5 DAYS Impressions: Chest CT 05/15/18 19:08 IMPRESSION: 1. Patchy lung infiltrates as seen on radiographs. Trace left pleural fluid is also noted. 2. Mass likely in the upper pole of the right kidney, possibly involving the liver. Incompletely assessed on chest CT. Review of prior imaging suggests a worrisome mass in 2013 noted on MRI. If further imaging is performed to evaluat e this, consider IV contrasted CT abdomen. 3. Nodule in the right thyroid will need ultrasound followup on elective basis. 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 Assessment & Plan - Diagnosis (1) Bilateral pneumonia Qualifiers: Pneumonia type: due to unspecified organism Lung location: lower lobe of lung Qualified Code(s): J18.1 - Lobar pneumonia, unspecified organism Is this a current diagnosis for this admission?: Yes Plan: Continue current antibiotic regimen. Cultures are negative thus far. he has had a bronchoscopy and biopsies were taken. He is been on antibiotics for several days, but his chest x-ray remains unchanged. I think he probably has a pneumonitis related to his immunotherapy for his renal cell carcinoma. I am going to start steroids. 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 (3) MSSA bacteremia Is this a current diagnosis for this admission?: Yes Plan: He had one blood culture that the lab thought was a Propionibacterium, but has turned out to be an MSSA. He does not really look like a patient with an MSSA bacteremia, because he just does not look toxic. However, given his frailty and his immunosuppressed state, he has been started on nafcillin. Echocardiogram today had good views and no evidence of any vegetations, but the ragman recommended that he have a TITO to definitively rule out endocarditis. I will make the arrangements to have this done. - Time Time Spent with patient: 25-34 minutes
[2018-05-21] MEDS: ATORVASTATIN CALCIUM 10 MG TABLET PO SCH (18:01)
[2018-05-21] MEDS: TAMSULOSIN HCL 0.4 MG CAP.SR.24H PO SCH (18:01)
[2018-05-21] MEDS: CLONIDINE HCL 0.1 MG TABLET PO SCH (18:01)
[2018-05-21] MEDS: LEVOFLOXACIN 250 MG TABLET PO SCH (22:49)
[2018-05-22] MEDS: PREGABALIN 100 MG CAPSULE PO SCH ×3 (01:00→18:23)
[2018-05-22] MEDS: NAFCILLIN SODIUM 2 GM in DEXTROSE 5%-WATER 100 ML IV SCH ×6 (01:00→21:01)
[2018-05-22] MEDS: IPRATROPIUM/ALBUTEROL 0.5-2.5 MG/3 ML AMPUL NEB SCH ×4 (02:01→19:26)
[2018-05-22 06:41] LABS: HEMATOCRIT 29.4 % (37.9-51.0); MEAN CORPUSCULAR HEMOGLOBIN 30.3 pg (27.0-33.4); MEAN CORPUSCULAR HGB CONC 34.1 g/dL (32.0-36.0); MEAN CORPUSCULAR VOLUME 89 fl (80-97); PLATELET COUNT 315 10^3/uL (150-450); RED CELL DISTRIBUTION WIDTH 15.1 % (11.5-14.0); WHITE BLOOD COUNT 9.2 10^3/uL (4.0-10.5)
[2018-05-22 07:01] LABS: ANION GAP 11 (5-19); BLOOD UREA NITROGEN 37 mg/dL (7-20); CALCIUM 8.8 mg/dL (8.4-10.2); CARBON DIOXIDE 20 mmol/L (22-30); CHLORIDE 109 mmol/L (98-107); GLUCOSE 99 mg/dL (75-110); POTASSIUM 4.8 mmol/L (3.6-5.0); SODIUM 139.8 mmol/L (137-145)
[2018-05-22 07:04] LABS: ABSOLUTE LYMPHOCYTES# (MANUAL) 0.4 10^3/uL (0.5-4.7); ABSOLUTE MONOCYTES # (MANUAL) 0.7 10^3/uL (0.1-1.4); ABSOLUTE NEUTROPHILS# (MANUAL) 8.1 10^3/uL (1.7-8.2); BASOPHILS % (MANUAL) 0 % (0-2); EOSINOPHILS % (MANUAL) 0 % (0-6); LYMPHOCYTES % (MANUAL) 4 % (13-45); MONOCYTES % (MANUAL) 8 % (3-13); SEGMENTED NEUTROPHILS % (MAN) 88 % (42-78); TOTAL CELLS COUNTED 100
[2018-05-22 07:06] LABS: BURR CELLS SLIGHT; OVALOCYTES 1+; TOXIC GRANULATION 1+
[2018-05-22 07:07] LABS: PLATELET COMMENT ADEQUATE; SCHISTOCYTES SLIGHT
--- NOTE | 2018-05-22 08:12 | PROGRESS NOTE E ---
Progress Note NAME: MATT TIERNEY : 1940 AGE: 77Y DATE: 05/20/2018 ROOM: 531 SUBJECTIVE: The patient is a 77-year-old male who came in with hemoptysis, recurrent, with bibasal pulmonary infiltrate, following immunotherapy for renal cell cancer with liver metastasis. He denies any fever, chills, increasing cough or purulent sputum production. Patient had a flexible bronchoscopy today where patient presented with profuse dark brown blood tinged mucous coming from both lower lobes of the lung. Able to suction dark brown blood clots and secretions on both lungs until the airway on both sides appeared clear. Patient tolerated the procedure well and no adverse events. Patient claimed that he seemed to be breathing a little bit better tonight than he was earlier today. Patient denies any vomiting, diarrhea, fever, chills. OBJECTIVE: EYES: No conjunctival pallor. ENT: No ear drainage, no nasal discharge. CHEST/LUNGS: No wheezing, no rhonchi, no coarse crackles. CARDIOVASCULAR: S1, S2 distinct. Regular rate and rhythm. ABDOMEN: Flabby. Positive bowel sounds. Soft, nondistended, nontender. EXTREMITIES: No joint swelling. ASSESSMENT AND PLAN: 1. INTERSTITIAL PNEUMONITIS POSSIBLE BASED ON RECENT BRONCHOSCOPIC FINDINGS AND APPEARANCE OF THE MUCOUS IN THE BRONCHIAL AIRWAY. Awaiting for the Gram staining and smears and culture findings from the bronchial washing and if that is negative may consider starting patient on prednisone 20- 40 mg tablet p.o. daily. The patient needs a pulmonary clinic followup in 3 to 4 weeks after hospital discharge. Patient may go home on oral antibiotics and recommend Spiriva inhaler 1 capsule a day and optimize blood pressure control. 2. INTERSTITIAL PNEUMONITIS WITH MILD PULMONARY HEMORRHAGE. Appears stable. 3. HISTORY OF COPD. 4. HISTORY OF RENAL CANCER WITH LIVER METASTASIS STATUS POST IMMUNOTHERAPY DICTATING PHYSICIAN: RHETT ALVES MD,CHIP,MPH 3M [id number] PHY#: [id number] ID: [id number] JOB#: [id number] ACCT: [id number] cc: > MTDD
[2018-05-22] MEDS: FEBUXOSTAT 40 MG TABLET PO SCH (09:18)
[2018-05-22] MEDS: FLUTICASONE NASAL SPRAY 50 MCG/SPRY 120 SPRAY/16 GM NASL SCH ×2 (09:18→21:01)
[2018-05-22] MEDS: PREDNISONE 20 MG TABLET PO SCH (09:18)
[2018-05-22] MEDS: FINASTERIDE 5 MG TABLET PO SCH (09:18)
[2018-05-22] MEDS: AMLODIPINE BESYLATE 10 MG TABLET PO SCH (09:19)
[2018-05-22] MEDS: METOPROLOL TARTRATE 25 MG TABLET PO SCH ×2 (09:19→21:01)
[2018-05-22] MEDS: BUDESONIDE/FORMOTEROL 80-4.5 MCG 60 PUFF/6.9 GM MDI IH SCH ×2 (09:26→21:01)
--- NOTE | 2018-05-22 12:57 | PROGRESS NOTE E ---
Progress Note NAME: MATT TIERNEY : 1940 AGE: 77Y DATE: 05/21/2018 ROOM: 531 SUBJECTIVE: The patient is a 77-year-old male who came in with hemoptysis, recurrent. Underwent evaluation with bronchoscopy because we were unable to remove and suction blood clots from both lower lobes and right upper lobe. Mucus appeared clear and phlegm. Patient tolerated bronchoscopy well. No adverse events. Denies any fever over the last 24 hours. No recurrence of hemoptysis. Claims that his breathing is slightly better. Patient was started on prednisone early this morning at set dose of 40 mg daily. Patient was also given Levaquin 250 mg daily at bedtime and Nafcillin 2 grams every 4 hours IV. OBJECTIVE: GENERAL: Patient is awake, alert, coherent, oriented x3. afebrile, not in apparent severe respiratory distress. VITAL SIGNS: Temperature 98.4 with a T-max of 98.4. Heart rate 90, blood pressure 147/60, saturation 92% on nasal cannula 2 liters. EYES: No jaundice or pallor. ENT: No ear drainage, no nasal discharge. CHEST/LUNGS: No wheezing, no rhonchi, no coarse crackles. CARDIOVASCULAR: S1, S2 distinct. Regular rate and rhythm. ABDOMEN: Flabby. Positive bowel sounds. Soft, nondistended, nontender. EXTREMITIES: No joint swelling, no cellulitis. LABORATORY: CBC not done today. Chemistry not done today. Microbiology pending for the bronchial washing. ASSESSMENT AND PLAN: INTERSTITIAL PNEUMONITIS MOST LIKELY PNEUMONIA CANNOT BE COMPLETELY EXCLUDED. Currently on IV Nafcillin and Levaquin p.o. 250 mg. Agree with prednisone 40 mg daily. We will consider tapering prednisone after 3 to 4 weeks as an outpatient depending on clinical response. Recommend pulmonary clinic follow up in 3 to 4 weeks following hospital discharge. Continue oral antibiotics for 10 days after hospital discharge. Continue Spiriva inhaler. DICTATING PHYSICIAN: RHETT ALVES MD,CHIP,MPH [id number] [id number] PHY#: [id number] ID: [id number] JOB#: [id number] ACCT: [id number] cc: > MTDD
[2018-05-22] MEDS: TIOTROPIUM BROMIDE DPI 5 CAP/KIT (18 MCG/CAP) IH SCH (14:03)
[2018-05-22] MEDS ORDERED: LANSOPRAZOLE 30 MG TAB.RAP.DR PO SCH (15:30)
--- NOTE | 2018-05-22 17:36 | PDOC PROGRESS REPORT ---
Subjective Progress Note for:: 05/22/18 Subjective:: No adverse events overnight. No new complaints. Breathing is comfortable. Has a dry cough. No fevers. Reason For Visit: COPD EXACERBATION PNEUMONIA, RENAL CA W METS Physical Exam Vital Signs: Temp Pulse Resp BP Pulse Ox 98.0 F 72 18 151/59 H 95 05/22/18 16:00 05/22/18 16:00 05/22/18 16:00 05/22/18 16:00 05/22/18 16:00 Pulse Oximeter Continuous Start: 05/20/18 08:12 Freq: RTQ4 Status: Active Protocol: Document 05/22/18 16:00 [facility] (Rec: 05/22/18 16:03 [facility] [id number]) Pulse Oximetry Assessment Oxygen Saturation (92-100) 94 Oxygen Flow Rate (L/min) 2.5 Oxygen Delivery Method Nasal Cannula Equipment Usage Equipment in Use Continuous SpO2 Machine # 4 Intake & Output 05/21/18 05/22/18 05/23/18 06:59 06:59 06:59 Intake Total 2980 2700 450 Output Total 1010 1300 430 Balance 1970 1400 20 Weight 82.8 kg 84.2 kg General appearance: PRESENT: no acute distress, cooperative, disheveled Respiratory exam: PRESENT: unlabored, crackles - Right lower lobe but not as prominent as yesterday. ABSENT: accessory muscle use, rhonchi, tachypnea, wheezes Cardiovascular exam: PRESENT: RRR, +S1, +S2, systolic murmur - 3 out of 6 crescendo decrescendo murmur heard best at the left upper sternal border, but pretty much audible over the entire chest Vascular exam: PRESENT: normal capillary refill GI/Abdominal exam: PRESENT: normal bowel sounds, soft. ABSENT: distended, guarding, rebound, tenderness Extremities exam: ABSENT: clubbing, pedal edema Musculoskeletal exam: PRESENT: normal inspection. ABSENT: deformity Neurological exam: PRESENT: alert, awake, oriented to person, oriented to place, oriented to time, oriented to situation Psychiatric exam: PRESENT: appropriate affect, normal mood Skin exam: PRESENT: dry, warm Results Laboratory Results: 05/22/18 05:02 05/22/18 05:02 05/22/18 05/22/18 05:02 05:02 WBC 9.2 RBC 3.30 L Hgb 10.0 L Hct 29.4 L MCV 89 MCH 30.3 MCHC 34.1 RDW 15.1 H Plt Count 315 Seg Neutrophils % Not Reportable Lymphocytes % Not Reportable Monocytes % Not Reportable Eosinophils % Not Reportable Basophils % Not Reportable Absolute Neutrophils Not Reportable Absolute Lymphocytes Not Reportable Absolute Monocytes Not Reportable Absolute Eosinophils Not Reportable Absolute Basophils Not Reportable Sodium 139.8 Potassium 4.8 Chloride 109 H Carbon Dioxide 20 L Anion Gap 11 BUN 37 H Creatinine 2.44 H Est GFR ( Amer) 31 L Est GFR (Non-Af Amer) 26 L Glucose 99 Calcium 8.8 05/20/18 09:07 Bronchial Washings AFB Smear Concentration - Final 05/20/18 09:07 Bronchial Washings Acid Fast Bacilli Smear - Final 05/20/18 09:07 Bronchial Washings Gram Stain - Final 05/20/18 09:07 Bronchial Washings Bronchial Washings Culture - Final NORMAL SREEDHAR 05/19/18 09:12 Sputum Gram Stain - Final 05/19/18 09:12 Sputum Sputum Culture - Final NORMAL SREEDHAR Impressions: Chest CT 05/15/18 19:08 IMPRESSION: 1. Patchy lung infiltrates as seen on radiographs. Trace left pleural fluid is also noted. 2. Mass likely in the upper pole of the right kidney, possibly involving the liver. Incompletely assessed on chest CT. Review of prior imaging suggests a worrisome mass in 2013 noted on MRI. If further imaging is performed to evaluate this, consider IV contrasted CT abdomen. 3. Nodule in the right thyroid will need ultrasound followup on elective basis. 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 Assessment & Plan - Diagnosis (1) Bilateral pneumonia Qualifiers: Pneumonia type: due to unspecified organism Lung location: lower lobe of lung Qualified Code(s): J18.1 - Lobar pneumonia, unspecified organism Is this a current diagnosis for this admission?: Yes Plan: Continue current antibiotic regimen. Cultures are negative thus far. he has had a bronchoscopy and biopsies were taken. He is been on antibiotics for several days, but his chest x-ray remains unchanged. I think he probably has a pneumonitis related to his immunotherapy for his renal cell carcinoma. He has been started on prednisone and will follow up with Dr. Metzger as an outpatient. 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 (3) MSSA bacteremia Is this a current diagnosis for this admission?: Yes Plan: He had one blood culture that the lab thought was a Propionibacterium, but has turned out to be an MSSA. He does not really look like a patient with an MSSA bacteremia, because he just does not look toxic. However, given his frailty and his immunosuppressed state, he has been started on nafcillin. Echocardiogram today had good views and no evidence of any vegetations. I discussed the case at length with Cardiology and we have decided to treat his bacteremia for 2 weeks, then repeat blood cultures, due to the low suspicion of endocarditis. - Time Time Spent with patient: 25-34 minutes
[2018-05-22] MEDS: TAMSULOSIN HCL 0.4 MG CAP.SR.24H PO SCH (18:23)
[2018-05-22] MEDS: CLONIDINE HCL 0.1 MG TABLET PO SCH (18:23)
[2018-05-22] MEDS: ATORVASTATIN CALCIUM 10 MG TABLET PO SCH (18:23)
[2018-05-22] MEDS: LEVOFLOXACIN 250 MG TABLET PO SCH (21:02)
[2018-05-22] MEDS: LOSARTAN POTASSIUM 50 MG TABLET PO SCH (21:02)
[2018-05-23] MEDS: NAFCILLIN SODIUM 2 GM in DEXTROSE 5%-WATER 100 ML IV SCH ×6 (01:12→22:17)
[2018-05-23] MEDS: PREGABALIN 100 MG CAPSULE PO SCH ×3 (01:12→17:32)
[2018-05-23] MEDS: IPRATROPIUM/ALBUTEROL 0.5-2.5 MG/3 ML AMPUL NEB SCH ×4 (01:36→19:54)
[2018-05-23] MEDS: LANSOPRAZOLE 30 MG TAB.RAP.DR PO SCH (05:42)
--- NOTE | 2018-05-23 09:47 | PROGRESS NOTE E ---
Progress Note NAME: MATT TIERNEY : 1940 AGE: 77Y DATE: 05/22/2018 ROOM: 531 SUBJECTIVE: The patient is a 77-year-old male who came in with recurrent hemoptysis. After immunotherapy for renal cell cancer, had recent bronchoscopy with bronchial washings, both lungs a few days ago showing dark brown blood clots with clear mucus. Bronchial washing specimen showed normal keira. Bronchial washing and the fungal cultures are pending. Started on Prednisone 40 mg daily yesterday for interstitial pneumonitis. Appeared to be stable. Denies any recurrence of hemoptysis. No fever or chills. No purulent sputum production. No chest pain. No worsening. OBJECTIVE: GENERAL: Patient is awake, alert, coherent, oriented x3, afebrile, not in apparent severe respiratory distress. VITAL SIGNS: Temperature 97.9 with a T-max of 98.4. Blood pressure 160/55, respiratory rate 16, saturation 94% on 2.5 L nasal cannula. EYES: No jaundice or pallor. ENT: No ear drainage, no nasal discharge. CHEST/LUNGS: No wheezing, no rhonchi, no coarse crackles. CARDIOVASCULAR: S1, S2 distant. Regular rate and rhythm. ABDOMEN: Flabby. Positive bowel sounds. Soft, nondistended, nontender. EXTREMITIES: No joint swelling, no cellulitis. LABORATORY: CBC done today showed white count 9.2, hemoglobin 10, hematocrit is 39.4, platelet count 215. Chemistry done today showed sodium 139.8, potassium 4.8, chloride 109, CO2 20, BUN 37, creatinine is 2.44, glucose is 99 and calcium is 8.8 ASSESSMENT AND PLAN: 1. INTERSTITIAL PNEUMONITIS. Currently on prednisone 40 mg daily. 2. PNEUMONIA. Cannot be completely excluded. Bronchial washings appear to have normal keira only. 3. HISTORY OF RENAL CANCER WITH LIVER METASTASIS ON IMMUNOTHERAPY. Currently under treatment at [facility]. PLAN AND RECOMMENDATION: 1. Continue prednisone 40 daily. 2. Continue Levaquin 250 mg p.o. daily. 3. Continue Symbicort 80 mcg inhaler 2 puffs twice a day. 4. Spiriva inhaler 1 capsule daily. 5. May start patient on GI prophylaxis while on prednisone 40 mg daily. 6. Recommend pulmonary followup in 3 or 4 weeks following hospital discharge. 7. Agree with prevacid 40 mg cap po daily. 8. Will sign off today. DICTATING PHYSICIAN: RHETT ALVES MD,CHIP,MPH [id number] [id number] PHY#: [id number] ID: [id number] JOB#: [id number] ACCT: [id number] cc: > MTDD
[2018-05-23] MEDS: METOPROLOL TARTRATE 25 MG TABLET PO SCH ×2 (10:31→22:17)
[2018-05-23] MEDS: PREDNISONE 20 MG TABLET PO SCH (10:31)
[2018-05-23] MEDS: FINASTERIDE 5 MG TABLET PO SCH (10:32)
[2018-05-23] MEDS: AMLODIPINE BESYLATE 10 MG TABLET PO SCH (10:32)
[2018-05-23] MEDS: FLUTICASONE NASAL SPRAY 50 MCG/SPRY 120 SPRAY/16 GM NASL SCH ×2 (10:32→22:18)
[2018-05-23] MEDS: BUDESONIDE/FORMOTEROL 80-4.5 MCG 60 PUFF/6.9 GM MDI IH SCH ×2 (10:33→22:18)
[2018-05-23] MEDS: TIOTROPIUM BROMIDE DPI 5 CAP/KIT (18 MCG/CAP) IH SCH (10:33)
[2018-05-23] MEDS: FEBUXOSTAT 40 MG TABLET PO SCH (10:33)
[2018-05-23] MEDS: ATORVASTATIN CALCIUM 10 MG TABLET PO SCH (17:31)
[2018-05-23] MEDS: CLONIDINE HCL 0.1 MG TABLET PO SCH (17:31)
[2018-05-23] MEDS: TAMSULOSIN HCL 0.4 MG CAP.SR.24H PO SCH (17:32)
--- NOTE | 2018-05-23 19:41 | PDOC PROGRESS REPORT ---
Subjective Progress Note for:: 05/23/18 Subjective:: No adverse events overnight. No new complaints. His breathing has been fairly comfortable. No fevers. Cough has been nonproductive. I spoke with his oncologist today, and they reassured me that there was no hurry to get him back up there to do his next treatment of immunotherapy. They told me that it could be delayed without any adverse effect to the patient. Reason For Visit: COPD EXACERBATION PNEUMONIA, RENAL CA W METS Physical Exam Vital Signs: Temp Pulse Resp BP Pulse Ox 98.1 F 69 17 151/54 H 95 05/23/18 16:28 05/23/18 16:28 05/23/18 16:28 05/23/18 16:28 05/23/18 16:28 Pulse Oximeter Continuous Start: 05/20/18 08:12 Freq: RTQ4 Status: Complete Protocol: Document 05/23/18 13:[address] [facility] (Rec: 05/23/18 14:[address] [facility] [id number]) Pulse Oximetry Assessment Oxygen Saturation (92-100) 91 Oxygen Flow Rate (L/min) 3 Oxygen Delivery Method Nasal Cannula Fraction of Inspired Oxygen (FIO2) 32 Equipment Usage Equipment in Use Continuous SpO2 Machine # N 4 Additional RT Notes Other with SATELLITE TECHNICIAN students Kathleen Harper and Kathleen Menjivar Intake & Output 05/22/18 05/23/18 05/24/18 06:59 06:59 06:59 Intake Total 2700 1482 1286 Output Total 1300 1160 970 Balance 1400 322 316 Weight 84.2 kg 84.3 kg General appearance: PRESENT: no acute distress, cooperative, disheveled Respiratory exam: PRESENT: unlabored, crackles - Right lower lobe, faint. ABSENT: accessory muscle use, rhonchi, tachypnea, wheezes Cardiovascular exam: PRESENT: RRR, +S1, +S2, systolic murmur - 3 out of 6 crescendo decrescendo murmur heard best at the left upper sternal border, but pretty much audible over the entire chest Vascular exam: PRESENT: normal capillary refill GI/Abdominal exam: PRESENT: normal bowel sounds, soft. ABSENT: distended, guarding, rebound, tenderness Extremities exam: ABSENT: clubbing, pedal edema Musculoskeletal exam: PRESENT: normal inspection. ABSENT: deformity Neurological exam: PRESENT: alert, awake, oriented to person, oriented to place, oriented to time, oriented to situation Psychiatric exam: PRESENT: appropriate affect, normal mood Skin exam: PRESENT: dry, warm Results Laboratory Results: 05/22/18 05:02 05/22/18 05:02 05/20/18 09:07 Bronchial Washings Fungal Smear - Final 05/20/18 09:07 Bronchial Washings Fungal Smear - Final 05/15/18 22:14 Blood Blood Culture - Final Staphylococcus Aureus 05/17/18 22:06 Blood Blood Culture - Final NO GROWTH IN 5 DAYS 05/17/18 22:12 Blood Blood Culture - Final NO GROWTH IN 5 DAYS Impressions: Chest CT 05/15/18 19:08 IMPRESSION: 1. Patchy lung infiltrates as seen on radiographs. Trace left pleural fluid is also noted. 2. Mass likely in the upper pole of the right kidney, possibly involving the liver. Incompletely assessed on chest CT. Review of prior imaging suggests a worrisome mass in 2012 noted on MRI. If further imaging is performed to evaluate this, consider IV contrasted CT abdomen. 3. Nodule in the right thyroid will need ultrasound followup on elective basis. 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 Assessment & Plan - Diagnosis (1) Bilateral pneumonia Qualifiers: Pneumonia type: due to unspecified organism Lung location: lower lobe of lung Qualified Code(s): J18.1 - Lobar pneumonia, unspecified organism Is this a current diagnosis for this admission?: Yes Plan: Continue current antibiotic regimen. Cultures are negative thus far. he has had a bronchoscopy and biopsies were taken. He finishes up his Levaquin today. I think he probably has a pneumonitis related to his immunotherapy for his renal cell carcinoma and his oncologist told me that they see it quite frequently with his kind of therapy. He has been started on prednisone and will follow up with Dr. Metzger as an outpatient in about 3 weeks. He will probably be on the same dose for a few weeks, and then he will taper down by 10 mg a week until he comes off. 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 They said that if he goes to a [facility] facility that they can reschedule his upcoming appointment, but if he goes home they still want him to come up on the 24th just so they can check up on him. They are not planning to do his next immunotherapy until he comes off steroids completely. (3) MSSA bacteremia Is this a current diagnosis for this admission?: Yes Plan: He had one blood culture that the lab thought was a Propionibacterium, but has turned out to be an MSSA. He does not really look like a patient with an MSSA bacteremia, because he just does not look toxic. However, given his frailty and his immunosuppressed state, he has been started on nafcillin. Echocardiogram today had good views and no evidence of any vegetations. I discussed the case at length with Cardiology and we have decided to treat his bacteremia for 2 weeks, then repeat blood cultures, due to the low suspicion of endocarditis. His PICC line was ordered today, but he is not due to get it until tomorrow. - Time Time Spent with patient: 25-34 minutes
--- NOTE | 2018-05-23 20:04 | PDOC DISCHARGE SUMMARY ---
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 He has been started on prednisone at a dose of 0.5 mg/kg/day. He is going to stay on this dose for the next 3-4 weeks and then follow-up with Dr. Metzger for his taper, which will be a decrease of 10 mg per dose per week. 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 I spoke with his oncologist. They are okay with waiting until he finishes his steroids before they give him his last dose. They said that if he goes to rehab they can schedule a follow-up with him after he gets out, but if he goes home, they still want him to keep his appointment on June 02 just so they can follow-up with them but they are not going to do any treatment on him at that time. (3) MSSA bacteremia Is this a current diagnosis for this admission?: Yes Summary: He had one blood culture that the lab thought was a Propionibacterium, but has turned out to be an MSSA. He does not really look like a patient with an MSSA bacteremia, because he just does not look toxic. However, given his frailty and his immunosuppressed state, he was started on nafcillin. Echocardiogram had good views and no evidence of any vegetations. I discussed the case at length with Cardiology and we have decided to treat his bacteremia for 2 weeks, then repeat blood cultures, due to the low suspicion of endocarditis. He will complete his treatment at home with [facility]. A PICC line is ordered and due to be placed before he is discharged. - Additional Information Resuscitation Status: Full Code Home Medications: Amlodipine Besylate [Norvasc 10 mg Tablet] 10 mg PO DAILY 05/16/18 Aspirin [Aspirin 81 mg Chewable Tablet] 81 mg PO DAILY 05/16/18 Atorvastatin Calcium [Lipitor 10 mg Tablet] 10 mg PO QPM 05/16/18 Budesonide/Formoterol Fumarate [Symbicort HFA 80-4.5 mcg Inhaler 6.9 gm] 2 puff IH BID 05/16/18 Clonidine HCl [Catapres 0.1 mg Tablet] 0.1 mg PO QPM 05/16/18 Febuxostat [Uloric 40 mg Tablet] 40 mg PO DAILY 05/16/18 Finasteride [Proscar 5 mg Tablet] 5 mg PO DAILY 05/16/18 Losartan Potassium [Cozaar 50 mg Tablet] 50 mg PO QHS 05/16/18 Metoprolol Tartrate [Lopressor 50 mg Tablet] 12.5 mg PO Q12 05/16/18 Pregabalin [Lyrica 100 mg Capsule] 100 mg PO Q8 05/16/18 Tamsulosin HCl [Flomax 0.4 mg Cap.sr] 0.4 mg PO QPM 05/16/18 Tiotropium [place] [Spiriva Handihaler 5 Cap/Kit (18 Mcg/Cap)] 1 cap IH DAILY 05/16/18 History of Present Illness History of Present Illness: MATT TIERNEY is a 77 year old male with a past medical history of kidney cancer with metastasis to the liver currently on monoclonal antibody therapy via oncology and [facility]. Patient seen 5 days ago for fever and shortness of breath with unremarkable workup he was discharged home however presents today with a single episode of coughing up a small quantity of bloody material. He denies fever chills nausea vomiting, rhinorrhea, chest pain or shortness of br eath. He denies a previous history, infectious contacts, recent antibiotics and is otherwise felt well. In the emergency room he has a CT of the chest notable for patchy infiltrates. He started on empiric Levaquin and referred to the hospitalist for admission. Hospital Course Hospital Course: He was on antibiotics for a few days and was requiring oxygen and was feeling a little bit better, but his chest x-ray did not improve. On immunotherapy, interstitial pneumonitis was suspected. He was seen in consultation by Dr. Metzger who did a bronchoscopy. We started him on steroids. He is get a follow- up with Dr. Metzger in the office. He has a prednisone taper to be done as described above. We are setting him up for some home oxygen. He finished a 7- day course of Levaquin. Blood cultures on admission were drawn, and the initial culture looked like a contaminant, but when the final result came out on the fifth day, it turned out to be MSSA. Given his immunosuppression and his frailty, I elected to treat him with 14 days of IV antibiotics. He is been on nafcillin here but will complete a course of treatment with Ancef at home. He really wants to go home and does not want to go to a rehab facility, but I placed a PT evaluation due to his frailty. Because of the low suspicion of endocarditis, we got a transthoracic echocardiogram with good views, and I talked the case over with cardiology and they recommended treating him for 2 wee ks, and then checking blood cultures a few days after his last dose of antibiotics, and if they are negative then his PICC line can be discontinued, but if it is positive he can be treated for another 4 weeks. His oncologist told me that the immunotherapy has a very long duration of effect, and if he is got to be on steroids for a couple of months, it should not affect his overall outcome. If he goes to rehab, they want him to come see them once he gets out just for a follow-up, but if he goes home, they want him to keep his originally scheduled appointment on the , even though they are not planning on doing any treatment at that time. Physical Exam Vital Signs: Temp Pulse Resp BP Pulse Ox 98.1 F 69 17 151/54 H 95 05/23/18 16:28 05/23/18 16:28 05/23/18 16:28 05/23/18 16:28 05/23/18 16:28 Pulse Oximeter Continuous Start: 05/20/18 08:12 Freq: RTQ4 Status: Complete Protocol: Document 05/23/18 13:56 [facility] (Rec: 05/23/18 14:24 [facility] [id number]) Pulse Oximetry Assessment Oxygen Saturation (92-100) 91 Oxygen Flow Rate (L/min) 3 Oxygen Delivery Method Nasal Cannula Fraction of Inspired Oxygen (FIO2) 32 Equipment Usage Equipment in Use Continuous SpO2 Machine # N 4 Additional RT Notes Other with [employer] FORMER students Kathleen Harper and Kathleen Menjivar Intake & Output 05/22/18 05/23/18 05/24/18 06:59 06:59 06:59 Intake Total 2700 1482 1286 Output Total 1300 1160 970 Balance 1400 322 316 Weight 84.2 kg 84.3 kg General appearance: PRESENT: no acute distress, cooperative, disheveled Respiratory exam: PRESENT: unlabored, crackles - Right lower lobe, faint. ABSENT: accessory muscle use, rhonchi, tachypnea, wheezes Cardiovascular exam: PRESENT: RRR, +S1, +S2, systolic murmur - 3 out of 6 crescendo decrescendo murmur heard best at the left upper sternal border, but pretty much audible over the entire chest Vascular exam: PRESENT: normal capillary refill GI/Abdominal exam: PRESENT: normal bowel sounds, soft. ABSENT: distended, guarding, rebound, tenderness Extremities exam: ABSENT: clubbing, pedal edema Musculoskeletal exam: PRESENT: normal inspection. ABSENT: deformity Neurological exam: PRESENT: alert, awake, oriented to person, oriented to place, oriented to time, oriented to situation Psychiatric exam: PRESENT: appropriate affect, normal mood Skin exam: PRESENT: dry, warm Results Laboratory Results: 05/22/18 05:02 05/22/18 05:02 05/20/18 09:07 Bronchial Washings Fungal Smear - Final 05/20/18 09:07 Bronchial Washings Fungal Smear - Final 05/15/18 22:14 Blood Blood Culture - Final Staphylococcus Aureus 05/17/18 22:06 Blood Blood Culture - Final NO GROWTH IN 5 DAYS 05/17/18 22:12 Blood Blood Culture - Final NO GROWTH IN 5 DAYS Impressions: Chest CT 05/15/18 19:08 IMPRESSION: 1. Patchy lung infiltrates as seen on radiographs. Trace left pleural fluid is also noted. 2. Mass likely in the upper pole of the right kidney, possibly involving the liver. Incompletely assessed on chest CT. Review of prior imaging suggests a worrisome mass in 2013 noted on MRI. If further imaging is performed to evaluate this, consider IV contrasted CT abdomen. 3. Nodule in the right thyroid will need ultrasound followup on elective basis. 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 Qualifiers - * PATIENT BEING DISCHARGED WITH ANY OF THE FOLLOWING DIAGNOSIS: No
[2018-05-23] MEDS: LOSARTAN POTASSIUM 50 MG TABLET PO SCH (22:17)
[2018-05-23] MEDS: LEVOFLOXACIN 250 MG TABLET PO SCH (22:18)
[2018-05-24] MEDS: PREGABALIN 100 MG CAPSULE PO SCH ×2 (02:15→09:08)
[2018-05-24] MEDS: NAFCILLIN SODIUM 2 GM in DEXTROSE 5%-WATER 100 ML IV SCH ×3 (02:15→09:07)
[2018-05-24] MEDS: IPRATROPIUM/ALBUTEROL 0.5-2.5 MG/3 ML AMPUL NEB SCH ×3 (02:33→14:20)
[2018-05-24] MEDS: LANSOPRAZOLE 30 MG TAB.RAP.DR PO SCH (05:59)
[2018-05-24] MEDS: METOPROLOL TARTRATE 25 MG TABLET PO SCH (09:08)
[2018-05-24] MEDS: BUDESONIDE/FORMOTEROL 80-4.5 MCG 60 PUFF/6.9 GM MDI IH SCH (09:09)
[2018-05-24] MEDS: FINASTERIDE 5 MG TABLET PO SCH (09:09)
[2018-05-24] MEDS: AMLODIPINE BESYLATE 10 MG TABLET PO SCH (09:09)
[2018-05-24] MEDS: FEBUXOSTAT 40 MG TABLET PO SCH (09:09)
[2018-05-24] MEDS: TIOTROPIUM BROMIDE DPI 5 CAP/KIT (18 MCG/CAP) IH SCH (09:09)
[2018-05-24] MEDS: PREDNISONE 20 MG TABLET PO SCH (09:09)
[2018-05-24] MEDS: FLUTICASONE NASAL SPRAY 50 MCG/SPRY 120 SPRAY/16 GM NASL SCH (09:10)
--- NOTE | 2018-05-24 10:55 | RADIOLOGY REPORT (SQ) ---
EXAM DESCRIPTION: PICC INSERTION; FLUORO/CV PLACEMENT; U/S GUIDE FOR VASCULAR ACCESS COMPLETED DATE/TIME: 05/24/2018 10:47 am REASON FOR STUDY: long-term antibiotics; IV ABX; IV ACCESS COMPARISON: None. FLUOROSCOPY TIME: 14 seconds 1 images saved to PACS. TECHNIQUE: Fluoroscopic and ultrasound guided PICC placement. LIMITATIONS: None. PROCEDURE: After written consent and assessment were obtained, the patient was brought into the fluo roscopy room and placed supine on the table. Ultrasound evaluation of potential access sites were per formed. After successfully identifying a patent right basilic vein, the right arm was prepped and trever ped in a sterile fashion along with the ultrasound probe. The entry site was anesthetized with 1% lid ocaine. A 21 gauge 7 cm needle was advanced through the skin and into the basilic vein under live ult rasound guidance. An ultrasound image was saved to PACS confirming access site. A .018 guide wire w as then inserted through the needle and into the venous system. The needle was then removed and an 11 blade scalpel was used to make a 1cm skin incision. A 5 fr peel-away sheath was advanced over the w jeremie and into the venous system. A measurement was then made using the existing wire and live fluorosc opic guidance. The wire was then removed and trimmed. The PICC was advanced through the peel-away she ath and into the venous system. The peel-away sheath was removed and the catheter was adhered to the patients arm with a stat lock. The catheter was then aspirated and flushed and a sterile bandage was placed over the access site. A fluoroscopic spot image was saved to PACS confirming the catheter tip within the superior vena cava. IMPRESSION: SUCCESSFUL PLACEMENT OF A 5 FR DUAL LUMEN 42 CM PICC IN THE RIGHT BASILIC VEIN. COMMENT: Patient medication list reviewed: Yes- Quality ID# 130:Eligible professional attests to doc umenting in the medical record they obtained, updated, or reviewed the patient's current medications. . Quality ID 145: Final reports for procedures using fluoroscopy that document radiation exposure lesley rae, or exposure time and number of fluorographic images (if radiation exposure indices are not avail able) Quality ID #76: The patient was prepped and draped using maximum sterile barrier technique including cap, mask, sterile gown, sterile gloves, a large sterile sheet, hand hygiene, and 2% Chlorhexidine fo r cutaneous antisepsis. When ultrasound is used, sterile ultrasound techniques are followed requiring sterile gel and sterile probes. TECHNICAL DOCUMENTATION: JOB ID: [id number] [employer]- All Rights Reserved rev-09/24 Reading location - IP/workstation name: [facility]
--- NOTE | 2018-05-24 14:43 | Progress Note ---
Provider Note Provider Note: ID Consult - Brief Note Contacted via telephone by Debo Salazar NP, who is taking care of the patient Mr Emmanuel Allen. Also discussed with [facility]. Mr Allen is a patient with metastatic renal cancer. He presented to the hospital for respiratory complaints. Blood and sputum cultures were sent. His blood cultures were reported as showing growth in 1/4 bottles of MSSA. However, this report was amended today to be a CoNS Staphylococcus warneri with the same susceptibility pattern. The BactiStaph Latex agglutination test to distinguish Staph aureus from other staphylococci was negative, but the Microscan initially gave a conflicting result, and further testing was required in order to confirm that the isolate in the blood culture was indeed a coagulase-negative Staphylococcus species rather than MSSA. Clinical management and decision making has been appropriate under the information provided at the time that this was likely MSSA. However, with correct identification of the blood isolate now confirmed by the Microbiology lab as Staphylococcus warneri, PICC line and Ancef can be discontinued. The likelihood of this representing a skin contaminant is high, rather than a true bacteremia. Pt does not have a history of valve replacement, PPM/ICD, or indwelling port, and he has not had repeated isolation of the same CoNS species. Certainly, any organism provided the appropriate host and risk factors could potentially be pathogenic, but there is no additional information in the pat ient's presentation and history to suggest that this is the case for the Staphylococcus warneri. Noel Scott MD [facility] Infectious Diseases pager [phone]
[2018-05-24 14:46] VITALS: BP 150/53
[2018-05-24] MEDS ORDERED: NAFCILLIN SODIUM 2 GM in DEXTROSE 5%-WATER 100 ML IV SCH (18:00)
== END 2018-05-24 17:17 | disposition home health service (06) | DRG 167 ==
LOC: ER 16:18 → OBSVTOIN 22:22 → EH 22:22 → 5 23:55
PROVIDERS: ADMIT Internal Medicine; ATTEND Internal Medicine
PROC: 0B9M8ZZ Drainage of Bilateral Lungs, Via Natural or Artificial Opening Endoscopic (ICD-10-PCS; 2018-05-20)
PROC: 0B9C8ZZ Drainage of Right Upper Lung Lobe, Via Natural or Artificial Opening Endoscopic (ICD-10-PCS; principal; 2018-05-20 07:30)
PROC: 02HV33Z Insertion of Infusion Device into Superior Vena Cava, Percutaneous Approach (ICD-10-PCS; 2018-05-24)
PROC: B5181ZA Fluoroscopy of Superior Vena Cava using Low Osmolar Contrast, Guidance (ICD-10-PCS; 2018-05-24)
PROC: B548ZZA Ultrasonography of Superior Vena Cava, Guidance (ICD-10-PCS; 2018-05-24)
DX: J15.9 Unspecified bacterial pneumonia (principal); C64.9 Malignant neoplasm of unspecified kidney, except renal pelvis; C78.7 Secondary malignant neoplasm of liver and intrahepatic bile duct; R04.2 Hemoptysis; R91.8 Other nonspecific abnormal finding of lung field; I25.10 Atherosclerotic heart disease of native coronary artery without angina pectoris; D64.9 Anemia, unspecified; J44.9 Chronic obstructive pulmonary disease, unspecified; I10 Essential (primary) hypertension; E03.9 Hypothyroidism, unspecified; E78.5 Hyperlipidemia, unspecified; M10.9 Gout, unspecified; Z79.899 Other long term (current) drug therapy; Z79.82 Long term (current) use of aspirin; Z87.891 Personal history of nicotine dependence; I25.2 Old myocardial infarction; Z91.041 Radiographic dye allergy status; Z90.49 Acquired absence of other specified parts of digestive tract; Z88.8 Allergy status to other drugs, medicaments and biological substances
CPT/HCPCS: 31624; 36415; 36569; 71045; 71046; 71250; 76937; 77001; 80048; 80053; 85025; 85610; 85730; 86850; 86900; 86901; 87015; 87040; 87070; 87077; 87101; 87116; 87186; 87205; 87206; 88112; 93005; 93010; 93306; 94667; 94668; 94762; 94799; 96365; 96366; 99285; J0171; J1200; J1610; J1642; J1956; J2250; J2310; J2405; J3010; J3490; J7030; J7120; J7512; J7620; S0032

== ENCOUNTER 2018-06-30 12:17 | Inpatient (IN) | payer MEDICARE ==
--- NOTE | 2018-06-30 12:49 | ER Document Report ---
ED Medical Screen (RME) - General Chief Complaint: Abnormal Lab Results Stated Complaint: ABNORMAL LABS Time Seen by Provider: 06/30/18 12:40 Primary Care Provider: DREA PADGETT MD [Primary Care Provider] - Follow up as needed Notes: Patient is a 77-year-old male with liver and renal cancer that presents to the emergency department for chief complaint of abnormal labs. Patient was told that his liver function testing was elevated when he had blood work drawn on Wednesday and was advised to come to the ED to have this reevaluated.. ROS: Other than noted above, the 12 point review of systems was reviewed with the karissa huang and were negative, all pertinent findings are included in the HPI. PHYSICAL EXAMINATION: Vital signs reviewed. GENERAL: Elderly male, no acute distress HEAD: Atraumatic, normocephalic. EYES: Pupils equal round extraocular movements intact, conjunctiva are normal. ENT: Nares patent NECK: Normal range of motion CV: Heart regular rate and rhythm LUNGS: No respiratory distress Musculoskeletal: Normal range of motion NEUROLOGICAL: Normal speech PSYCH: Normal mood, normal affect. MDM: Patient seen and examined for rapid initial assessment. Vital signs reviewed. A comprehensive ED assessment and evaluation of the patient, analysis of test results and completion of the medical decision making process will be conducted by additional ED providers. *Note is created using voice recognition software and may contain spelling, syntax or grammatical errors. TRAVEL OUTSIDE OF THE [place] IN LAST 30 DAYS: No - Related Data Allergies/Adverse Reactions: iohexol [From Omnipaque] Adverse Reaction (Severe, Verified 06/30/18 12:27) Renal failure contrast dye Allergy (Severe, Uncoded 06/30/18 12:27) kidney failure Past Medical History - Past Medical History Cardiac Medical History: Reports: Hx Coronary Artery Disease, Hx Heart Attack - 2013, Hx Hypercholesterolemia, Hx Hypertension Pulmonary Medical History: Reports: Hx COPD, Hx Pneumonia - hx of Denies: Hx Asthma Neurological Medical History: Denies: Hx Cerebrovascular Accident, Hx Seizures Endocrine Medical History: Reports: Hx Hypothyroidism Renal/ Medical History: Reports: Hx Benign Prostatic Hyperplasia. Denies: Hx Peritoneal Dialysis Malignancy Medical History: Reports Hx Renal (Kidney) Cancer Musculoskeltal Medical History: Reports Hx Arthritis - gout Psychiatric Medical History: Denies: Hx Depression Past Surgical History: Reports: Hx Cholecystectomy, Hx Kidney (Renal Surgery) - tumor removed - Immunizations Immunizations up to date: Yes Hx Diphtheria, Pertussis, Tetanus Vaccination: Yes Physical Exam - Vital signs Vitals: Temp Pulse Resp BP Pulse Ox 98 F 62 12 128/42 H 100 06/30/18 12:33 06/30/18 12:33 06/30/18 12:33 06/30/18 12:33 06/30/18 12:33 Course - Vital Signs Vital signs: Temp Pulse Resp BP Pulse Ox 98 F 62 12 128/42 H 100 06/30/18 12:33 06/30/18 12:33 06/30/18 12:33 06/30/18 12:33 06/30/18 12:33 Doctor's Discharge - Discharge Referrals: DREA PADGETT MD [Primary Care Provider] - Follow up as needed
[2018-06-30 13:51] LABS: APPEARANCE,URINE CLEAR; BILIRUBIN,URINE NEGATIVE (NEGATIVE); GLUCOSE, URINE NEGATIVE (NEGATIVE); KETONES,URINE NEGATIVE (NEGATIVE); LEUKOCYTE ESTERASE,URINE NEGATIVE (NEGATIVE); NITRITE,URINE NEGATIVE (NEGATIVE); PROTEIN,URINE 100 mg/dL (NEGATIVE); URINE SPECIFIC GRAVITY 1.013
[2018-06-30 13:52] LABS: COLOR,URINE DARK YELLOW
[2018-06-30 14:01] LABS: ABSOLUTE EOSINOPHILS # (AUTO) 0.2 10^3/uL (0.0-0.6); ABSOLUTE LYMPHOCYTES (AUTO) 0.7 10^3/uL (0.5-4.7); ABSOLUTE MONOCYTES (AUTO) 0.4 10^3/uL (0.1-1.4); BASOPHILS % (AUTO) 0.9 % (0-2); EOSINOPHILS % (AUTO) 4.5 % (0-6); HEMATOCRIT 33.9 % (37.9-51.0); HEMOGLOBIN 11.4 g/dL (13.5-17.0); LYMPHOCYTES % (AUTO) 15.4 % (13-45); MEAN CORPUSCULAR HEMOGLOBIN 31.2 pg (27.0-33.4); MEAN CORPUSCULAR HGB CONC 33.5 g/dL (32.0-36.0); MEAN CORPUSCULAR VOLUME 93 fl (80-97); PLATELET COUNT 171 10^3/uL (150-450); RED BLOOD COUNT 3.64 10^6/uL (4.35-5.55); RED CELL DISTRIBUTION WIDTH 17.5 % (11.5-14.0); SEGMENTED NEUTROPHILS % (AUTO) 70.2 % (42-78); TOTAL CELLS COUNTED % (AUTO) 100 %; WHITE BLOOD COUNT 4.3 10^3/uL (4.0-10.5)
[2018-06-30 14:16] LABS: ALANINE AMINOTRANSFERASE 187 U/L (21-72); ALBUMIN 3.3 g/dL (3.5-5.0); ALKALINE PHOSPHATASE 1096 U/L (38-126); ANION GAP 11 (5-19); ASPARTATE AMINO TRANSFERASE 237 U/L (17-59); BILIRUBIN,TOTAL 3.9 mg/dL (0.2-1.3); BLOOD UREA NITROGEN 21 mg/dL (7-20); CALCIUM 8.2 mg/dL (8.4-10.2); CARBON DIOXIDE 21 mmol/L (22-30); CHLORIDE 104 mmol/L (98-107); CREATINE KINASE 46 U/L (55-170); GLUCOSE 83 mg/dL (75-110); LIPASE 193.8 U/L (23-300); POTASSIUM 4.2 mmol/L (3.6-5.0); SODIUM 135.9 mmol/L (137-145); TOTAL PROTEIN 5.5 g/dL (6.3-8.2)
--- NOTE | 2018-06-30 17:54 | EKG REPORT ---
SEVERITY:- ABNORMAL ECG - SINUS RHYTHM MULTIPLE VENTRICULAR PREMATURE COMPLEXES : Confirmed by: Paco Gleason MD 30-Jun-2018 17:53:57
--- NOTE | 2018-06-30 18:12 | RADIOLOGY REPORT (SQ) ---
EXAM DESCRIPTION: U/S ABDOMEN LIMITED W/O DOP COMPLETED DATE/TIME: 06/30/2018 5:54 pm REASON FOR STUDY: New onset jaundice, known liver cancer COMPARISON: None. TECHNIQUE: Dynamic and static grayscale images acquired of the abdomen and recorded on PACS. Additio nal selected color Doppler and spectral images recorded. LIMITATIONS: None. FINDINGS: PANCREAS: Poorly seen. LIVER: Several cysts are seen in the left lobe. LIVER VASCULATURE: Normal directional flow of the main portal vein and hepatic veins. GALLBLADDER: Surgically absent. ULTRASOUND-DETECTED NICOLE'S SIGN: Not applicable. INTRAHEPATIC DUCTS AND COMMON DUCT: CBD and intrahepatic ducts normal caliber. No filling defects. INFERIOR VENA CAVA: Not imaged. AORTA: No aneurysm. The distal aorta was not seen. RIGHT KIDNEY: Normal sunrise, 12.7 cm. Multiple small cysts are present. PERITONEAL AND RIGHT PLEURAL SPACE: No ascites or effusions. OTHER: There is a solid mass measuring 6.3 x 5 x 5 cm is best seen on sagittal early images between t he liver and kidney. Etiology is uncertain. IMPRESSION: 1. Multiple cysts are seen in the left lobe of the liver. Multiple right renal cysts a re present. 2. There is a 6.3 x 5 x 5 cm solid mass in the right upper quadrant as described. CT with oral and intravenous contrast is recommended. TECHNICAL DOCUMENTATION: JOB ID: [id number]- All Rights Reserved Reading location - IP/workstation name: [email or web address]
[2018-06-30] MEDS ORDERED: PREGABALIN 100 MG CAPSULE PO ONE (19:30)
--- NOTE | 2018-06-30 19:32 | ER Document Report ---
ED General - General Chief Complaint: Abnormal Lab Results Stated Complaint: ABNORMAL LABS Time Seen by Provider: 06/30/18 12:40 Primary Care Provider: DREA PADGETT MD [Primary Care Provider] - Follow up as needed TRAVEL OUTSIDE OF THE [place] IN LAST 30 DAYS: No - HPI Notes: Patient presents to the emergency department for evaluation. He told to come here because of abnormal labs. He has a history of renal cancer with metastasis to the liver. He had labs done on Wednesday and he was told his "levels were rising." The patient himself denies any acute complaints or concerns. He denies knowing that his eyes were appearing yellow. He is not currently on chemotherapy or radiation. He is followed at [facility]. - Related Data Allergies/Adverse Reactions: iohexol [From Omnipaque] Adverse Reaction (Severe, Verified 06/30/18 12:27) Renal failure contrast dye Allergy (Severe, Uncoded 06/30/18 12:27) kidney failure Past Medical History - General Information source: Patient, Relative - Social History Smoking Status: Unknown if Ever Smoked Family History: Hypertension Patient has suicidal ideation: No Patient has homicidal ideation: No - Past Medical History Cardiac Medical History: Reports: Hx Coronary Artery Disease, Hx Heart Attack - 2013, Hx Hypercholesterolemia, Hx Hypertension Pulmonary Medical History: Reports: Hx COPD, Hx Pneumonia - hx of Denies: Hx Asthma Neurological Medical History: Denies: Hx Cerebrovascular Accident, Hx Seizures Endocrine Medical History: Reports: Hx Hypothyroidism Renal/ Medical History: Reports: Hx Benign Prostatic Hyperplasia. Denies: Hx Peritoneal Dialysis Malignancy Medical History: Reports Hx Renal (Kidney) Cancer Musculoskeletal Medical History: Reports Hx Arthritis - gout Psychiatric Medical History: Denies: Hx Depression Past Surgical History: Reports: Hx Cholecystectomy, Hx Kidney (Renal Surgery) - tumor removed - Immunizations Immunizations up to date: Yes Hx Diphtheria, Pertussis, Tetanus Vaccination: Yes Hx Pneumococcal Vaccination: 02/21/16 Review of Systems - Review of Systems Constitutional: No symptoms reported EENT: No symptoms reported Cardiovascular: No symptoms reported Respiratory: No symptoms reported Gastrointestinal: See HPI Musculoskeletal: No symptoms reported Skin: No symptoms reported Neurological/Psychological: No symptoms reported Physical Exam - Vital signs Vitals: Temp Pulse Resp BP Pulse Ox 98 F 62 12 128/42 H 100 06/30/18 12:33 06/30/18 12:33 06/30/18 12:33 06/30/18 12:33 06/30/18 12:33 Interpretation: Normal - Notes Notes: Vital signs reviewed, please refer to chart. Patient is normocephalic, atraumatic. Pupils equal round, reactive to light. Scleral icterus noted. Neck is supple without meningismus. Heart is regular rate and rhythm. Lungs are clear to auscultation bilaterally. Abdomen is soft, nontender, normoactive bowel sounds throughout. Extremities without cyanosis, clubbing. Calves are nontender. Peripheral pulses are equal. Skin is warm and dry. Patient is awake, alert, neurological exam is nonfocal. Course - Re-evaluation Re-evalutation: 06/30/18 19:34 Presents emergency department for evaluation of abnormal labs. He denies any acute complaints or concerns, but he is visibly jaundiced. Laboratory investigations here reveal a markedly elevated bilirubin. He also has a markedly elevated alk phos. AST and ALT are moderately elevated. I spoke with Dr. Duque, oncologist on-call at [facility]. He agrees that this is a significant increase in his numbers. He of course is concerned about the possibility of an obstructive picture. The possibility of obstructive versus infiltrative process was explained in great detail to the patient as well as his daughter. Certainly we would want him evaluated at [facility] where he receives the majority of his care. The patient will be transferred there by oncology for further care. Unf ortunately they do not have any beds at this time. He is placed on a wait list and will remain in the department until he can be transferred. - Vital Signs Vital signs: Temp Pulse Resp BP Pulse Ox 98 F 59 L 12 180/51 H 100 06/30/18 12:33 06/30/18 17:32 06/30/18 12:33 06/30/18 17:32 06/30/18 17:32 - Laboratory Result Diagrams: 06/30/18 13:40 06/30/18 13:40 Laboratory results interpreted by me: 06/30/18 06/30/18 06/30/18 13:10 13:40 13:40 RBC 3.64 L Hgb 11.4 L Hct 33.9 L RDW 17.5 H Sodium 135.9 L Carbon Dioxide 21 L BUN 21 H Creatinine 2.47 H Est GFR ( Amer) 31 L Est GFR (Non-Af Amer) 25 L Calcium 8.2 L Total Bilirubin 3.9 H Direct Bilirubin 3.0 H AST 237 H ALT 187 H Alkaline Phosphatase 1096 H Creatine Kinase 46 L Total Protein 5.5 L Albumin 3.3 L Urine Protein 100 H Urine Blood SMALL H Urine Urobilinogen 4.0 H - Diagnostic Test Radiology reviewed: Reports reviewed - Normal CBD. Infiltrative mass. Discharge - Discharge Clinical Impression: Jaundice, Abnormal liver function Condition: Stable Disposition: [place] Referrals: DREA PADGETT MD [Primary Care Provider] - Follow up as needed
[2018-06-30] MEDS: LOSARTAN POTASSIUM 50 MG TABLET PO SCH (21:56)
[2018-06-30] MEDS: CLONIDINE HCL 0.1 MG TABLET PO SCH (21:56)
[2018-06-30] MEDS: METOPROLOL TARTRATE 50 MG TABLET PO SCH (21:57)
--- NOTE | 2018-07-01 00:05 | PDOC CONSULTATION ---
Consultation Consult Date: 06/30/18 Attending physician:: NELSON GAMBOA Consult reason:: Elevated liver function studies, medical management of chronic medical problems, in the emergency room, while awaiting transfer to the [facility]. History of Present Illness Admission Date/PCP: ER visit date 06/30/2018 DREA PADGETT MD Patient complains of: Abnormal lab tests History of Present Illness: MATT TIERNEY is a 77 year old male who presented to the emergency room with a complaint that his laboratory testing done by his oncologist at [facility] earlier this week were abnormal and he was instructed to come to the emergency room for reevaluation. He offers no new or acute complaints. He was noted in the emergency room to be jaundiced and all of his hepatic function studies were significantly elevated. The emergency room physician managing the patient's care contacted his oncologist at [facility] and arrangements were made for the patient to be transferred to their [facility] for further evaluation and treatment. However the patient's transfer will be delayed substantially due to a bed shortage and as such the emergency room physician has requested at our hospital service consult and manage the patient's chronic medical problems of hypertension, COPD, hyperlipidemia, gout and benign prostatic hypertrophy. 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 Past Medical History Cardiac Medical History: Reports: Coronary Artery Disease, Myocardial Infarction - 2013, Hyperlipidema, Hypertension Denies: Atrial Fibrillation, DVT, Pulmonary Embolism Pulmonary Medical History: Reports: Chronic Obstructive Pulmonary Disease (COPD), Pneumonia - hx of Denies: Asthma, Intubation EENT Medical History: Reports: None Neurological Medical History: Denies: Multiple Sclerosis, Seizures Endocrine Medical History: Reports: Hypothyroidism - Not currently on medication but being observed by his credit balance specialist Denies: Diabetes Mellitus Type 1, Diabetes Mellitus Type 2, Hyperthyroidism Renal/ Medical History: Reports: Chronic Kidney Disease, Other - 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 Denies: Nephrolithiasis Malignancy Medical History: Reports: Renal (Kidney) Cancer - With known hepatic metastasis GI Medical History: Denies: Cirrhosis, Hepatitis, Peptic Ulcer Disease Musculoskeltal Medical History: Reports: Arthritis - gout, Gout Denies: Fibromyalgia Skin Medical History: Denies: Eczema, Psoriasis Psychiatric Medical History: Denies: Alcohol Dependency, Depression, Substance Abuse, Tobacco Dependency Traumatic Medical History: Reports: None Hematology: Reports: Anemia Denies: Bleeding Tendencies Infectious Medical History: Reports: None Past Surgical History Past Surgical History: Reports: Cholecystectomy, Other - 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 denies: DM, Malignancy Parental Family History Reviewed: Yes Children Family History Reviewed: No Sibling(s) Family History Reviewed.: Yes Medication/Allergy Home Medications: RX: Amlodipine Besylate [Norvasc 10 mg Tablet] 10 mg PO DAILY 05/16/18 RX: Aspirin [Aspirin 81 mg Chewable Tablet] 81 mg PO DAILY 05/16/18 RX: Atorvastatin Calcium [Lipitor 10 mg Tablet] 10 mg PO QPM 05/16/18 RX: Budesonide/Formoterol Fumarate [Symbicort HFA 80-4.5 mcg Inhaler 6.9 gm] 2 puff IH BID 05/16/18 RX: Clonidine HCl [Catapres 0.1 mg Tablet] 0.1 mg PO QPM 05/16/18 RX: Febuxostat [Uloric 40 mg Tablet] 40 mg PO DAILY 05/16/18 RX: Finasteride [Proscar 5 mg Tablet] 5 mg PO DAILY 05/16/18 RX: Losartan Potassium [Cozaar 50 mg Tablet] 50 mg PO QHS 05/16/18 RX: Metoprolol Tartrate [Lopressor 50 mg Tablet] 12.5 mg PO Q12 05/16/18 RX: Pregabalin [Lyrica 100 mg Capsule] 100 mg PO Q8 05/16/18 RX: Tamsulosin HCl [Flomax 0.4 mg Cap.sr] 0.4 mg PO QPM 05/16/18 RX: Tiotropium [place] [Spiriva Handihaler 5 Cap/Kit (18 Mcg/Cap)] 1 cap IH DAILY 05/16/18 RX: Prednisone [Deltasone 20 mg Tablet] 40 mg PO DAILY #60 tablet 05/23/18 RX: Tiotropium [place] [Spiriva Handihaler 5 Cap/Kit (18 Mcg/Cap)] 1 cap IH DAILY #30 kit 05/23/18 Allergies/Adverse Reactions: iohexol [From Omnipaque] Adverse Reaction (Severe, Verified 06/30/18 12:27) Renal failure contrast dye Allergy (Severe, Uncoded 06/30/18 12:27) kidney failure Review of Systems Constitutional: ABSENT: chills, fever(s) Eyes: ABSENT: visual disturbances, other - Ocular pain Ears: ABSENT: hearing changes, other - Ear pain Nose, Mouth, and Throat: ABSENT: mouth pain, sore throat Cardiovascular: ABSENT: chest pain, palpitations Respiratory: ABSENT: cough, dyspnea Gastrointestinal: ABSENT: abdominal pain, constipation, diarrhea, nausea, vomiting Genitourinary: ABSENT: dysuria, hematuria Musculoskeletal: ABSENT: deformity, joint swelling Integumentary: ABSENT: pruritus, rash Neurological: ABSENT: confusion, convulsions, focal weakness, memory loss, tremor(s) Psychiatric: ABSENT: anxiety, depression Endocrine: ABSENT: cold intolerance, heat intolerance Hematologic/Lymphatic: ABSENT: easy bleeding, easy bruising Physical Exam Vital Signs: Temp Pulse Resp BP Pulse Ox 98 F 59 L 19 162/50 H 98 06/30/18 12:33 06/30/18 17:32 06/30/18 20:02 06/30/18 20:01 06/30/18 20:02 Intake & Output 06/28/18 06/29/18 06/30/18 23:59 23:59 23:59 Output Total 200 Balance -200 Weight 81.3 kg General appearance: PRESENT: no acute distress, cooperative Head exam: PRESENT: atraumatic, normocephalic Eye exam: PRESENT: conjunctiva pink, EOMI, scleral icterus Ear exam: PRESENT: normal external ear exam. ABSENT: bleeding, drainage Mouth exam: PRESENT: dry mucosa, neck supple Neck exam: ABSENT: thyromegaly, tracheal deviation Respiratory exam: PRESENT: clear to auscultation marychuy, symmetrical, unlabored Cardiovascular exam: PRESENT: RRR. ABSENT: clicks, gallop, rubs Pulses: PRESENT: normal radial pulses, normal dorsalis pedis pul Vascular exam: PRESENT: normal capillary refill. ABSENT: pallor GI/Abdominal exam: PRESENT: normal bowel sounds, soft. ABSENT: mass, tenderness Rectal exam: PRESENT: deferred Extremities exam: ABSENT: joint swelling, pedal edema Musculoskeletal exam: ABSENT: deformity, dislocation Neurological exam: PRESENT: alert, awake, oriented to person, oriented to place, oriented to time, oriented to situation, CN II-XII grossly intact. ABSENT: motor sensory deficit Psychiatric exam: PRESENT: appropriate affect, normal mood Skin exam: PRESENT: dry, intact, jaundice, warm. ABSENT: rash, urticaria Results Laboratory Results: 06/30/18 13:40 06/30/18 13:40 06/30/18 06/30/18 06/30/18 13:10 13:40 13:40 WBC 4.3 RBC 3.64 L Hgb 11.4 L Hct 33.9 L MCV 93 MCH 31.2 MCHC 33.5 RDW 17.5 H Plt Count 171 Seg Neutrophils % 70.2 Lymphocytes % 15.4 Monocytes % 9.0 Eosinophils % 4.5 Basophils % 0.9 Absolute Neutrophils 3.0 Absolute Lymphocytes 0.7 Absolute Monocytes 0.4 Absolute Eosinophils 0.2 Absolute Basophils 0.0 Sodium 135.9 L Potassium 4.2 Chloride 104 Carbon Dioxide 21 L Anion Gap 11 BUN 21 H Creatinine 2.47 H Est GFR ( Amer) 31 L Est GFR (Non-Af Amer) 25 L Glucose 83 Calcium 8.2 L Total Bilirubin 3.9 H AST 237 H ALT 187 H Alkaline Phosphatase 1096 H Total Protein 5.5 L Albumin 3.3 L Lipase 193.8 Urine Color DARK YELLOW Urine Appearance CLEAR Urine pH 5.0 Ur Specific [place] 1.013 Urine Protein 100 H Urine Glucose (UA) NEGATIVE Urine Ketones NEGATIVE Urine Blood SMALL H Urine Nitrite NEGATIVE Ur Leukocyte Esterase NEGATIVE Urine WBC (Auto) 1 Urine RBC (Auto) 0 06/30/18 13:40 Creatine Kinase 46 L Impressions: Abdomen Ultrasound 06/30/18 15:06 IMPRESSION: 1. Multiple cysts are seen in the left lobe of the liver. Multiple right renal cysts are present. 2. There is a 6.3 x 5 x 5 cm solid mass in the right upper quadrant as described. CT with oral and intravenous contrast is recommended. Assessment & Plan - Diagnosis (1) Elevated liver function tests Is this a current diagnosis for this admission?: Yes Plan: Patient will have his liver function tests assessed on a daily basis with morning lab work. Dr. Duque agrees that this is a significant increase in his liver function test values and he is concerned about the possibility of an obstructive picture. He will be evaluated at [facility] in [place] where he receives the majority of his care. The patient will be transferred to oncology there for further care. Unfortunately they do not have any beds available at this time. He is placed on a wait list and will remain in the emergency department until he can be transferred. If there are any dramatic changes or the patient has any changes in his evaluation consistent with a hepatic obstruction or other complication of his metastatic renal cell carcinoma he will be accepted in transfer on an immediate basis by the oncology services (Dr. Duque the oncologist on-call at [facility] he has accepted the patient in transfer). (2) Metastatic renal cell carcinoma to liver Is this a current diagnosis for this admission?: Yes Plan: Patient will be managed by his oncologist on arrival at the oncology center in the [facility]. (3) Hypertension Qualifiers: Hypertension type: essential hypertension Qualified Code(s): I10 - Essential (primary) hypertension Is this a current diagnosis for this admission?: Yes Plan: Patient will be continued on his usual antihypertensive medications with the exception of any which may cause worsening hepatic injury/failure. (4) Hyperlipidemia Qualifiers: Hyperlipidemia type: unspecified Qualified Code(s): E78.5 - Hyperlipidemia, unspecified Is this a current diagnosis for this admission?: Yes Plan: Patient's statin therapy will be discontinued due to his elevated liver enzymes. (5) BPH (benign prostatic hyperplasia) Qualifiers: Lower urinary tract symptom detail: unspecified Is this a current diagnosis for this admission?: Yes Plan: Patient will be continued on his usual therapeutic agents for BPH. (6) COPD (chronic obstructive pulmonary disease) Qualifiers: Emphysema type: unspecified Is this a current diagnosis for this admission?: Yes Plan: Patient will be maintained on his usual COPD therapy with a rescue nebulizer treatment available during his ER course awaiting transfer. (7) Gout Qualifiers: Gout etiology: unspecified cause Chronicity: chronic Laterality: u nspecified laterality Presence of tophus: without tophus Is this a current diagnosis for this admission?: Yes Plan: The patient's Uloric therapy will be held during his hospital course, as this medication has been associated with causation of elevated hepatic enzymes/drug- induced hepatitis. (8) Chronic pain Qualifiers: Chronic pain type: other chronic pain Qualified Code(s): G89.29 - Other chronic pain Is this a current diagnosis for this admission?: Yes Plan: Patient has chronic pain since having shingles 2 years ago. He has tried numerous medications and opiates and the only relief he has ever gotten has been with Lyrica. Even though Lyrica may possibly contribute to his hepatic disease, since it is his only relief of pain, I cannot see with holding it at this point. If his hepatic disease continues to progress substantially this matter will be revisited. - Time Time Spent: 50 to 70 Minutes Medications reviewed and adjusted accordingly: Yes Anticipated discharge: [facility]
[2018-07-01] MEDS ORDERED: TEMAZEPAM 15 MG CAPSULE PO SCH (00:19)
[2018-07-01] MEDS ORDERED: TEMAZEPAM 15 MG CAPSULE PO PRN (00:20)
[2018-07-01 05:28] LABS: HEMOGLOBIN 9.9 g/dL (13.5-17.0); MEAN CORPUSCULAR HEMOGLOBIN 31.4 pg (27.0-33.4); MEAN CORPUSCULAR HGB CONC 34.1 g/dL (32.0-36.0); MEAN CORPUSCULAR VOLUME 92 fl (80-97); PLATELET COUNT 141 10^3/uL (150-450); RED BLOOD COUNT 3.15 10^6/uL (4.35-5.55); RED CELL DISTRIBUTION WIDTH 17.3 % (11.5-14.0); WHITE BLOOD COUNT 3.2 10^3/uL (4.0-10.5)
[2018-07-01 05:45] LABS: ALANINE AMINOTRANSFERASE 153 U/L (21-72); ALBUMIN 2.6 g/dL (3.5-5.0); ALKALINE PHOSPHATASE 923 U/L (38-126); ANION GAP 7 (5-19); ASPARTATE AMINO TRANSFERASE 196 U/L (17-59); BILIRUBIN,DIRECT 2.1 mg/dL (0.0-0.4); BILIRUBIN,TOTAL 2.7 mg/dL (0.2-1.3); BLOOD UREA NITROGEN 22 mg/dL (7-20); CALCIUM 7.8 mg/dL (8.4-10.2); CARBON DIOXIDE 23 mmol/L (22-30); CHLORIDE 108 mmol/L (98-107); GLUCOSE 105 mg/dL (75-110); POTASSIUM 3.7 mmol/L (3.6-5.0); SODIUM 138.4 mmol/L (137-145); TOTAL PROTEIN 4.7 g/dL (6.3-8.2)
[2018-07-01] MEDS: PREGABALIN 100 MG CAPSULE PO SCH ×3 (05:59→22:14)
--- NOTE | 2018-07-01 09:21 | ER Document Report ---
Doctor's Note Notes: Laboratory 06/30/18 06/30/18 06/30/18 13:10 13:40 13:40 WBC 4.3 RBC 3.64 L Hgb 11.4 L Hct 33.9 L MCV 93 MCH 31.2 MCHC 33.5 RDW 17.5 H Plt Count 171 Seg Neutrophils % 70.2 Lymphocytes % 15.4 Monocytes % 9.0 Eosinophils % 4.5 Basophils % 0.9 Absolute Neutrophils 3.0 Absolute Lymphocytes 0.7 Absolute Monocytes 0.4 Absolute Eosinophils 0.2 Absolute Basophils 0.0 Sodium 135.9 L Potassium 4.2 Chloride 104 Carbon Dioxide 21 L Anion Gap 11 BUN 21 H Creatinine 2.47 H Est GFR ( Amer) 31 L Est GFR (Non-Af Amer) 25 L Glucose 83 Calcium 8.2 L Magnesium Total Bilirubin 3.9 H Direct Bilirubin 3.0 H Neonat Total Bilirubin Not Reportable Neonat Direct Bilirubin Not Reportable Neonat Indirect Bili Not Reportable AST 237 H ALT 187 H Alkaline Phosphatase 1096 H Creatine Kinase 46 L Total Protein 5.5 L Albumin 3.3 L Lipase 193.8 Urine Color DARK YELLOW Urine Appearance CLEAR Urine pH 5.0 Ur Specific [place] 1.013 Urine Protein 100 H Urine Glucose (UA) NEGATIVE Urine Ketones NEGATIVE Urine Blood SMALL H Urine Nitrite NEGATIVE Urine Bilirubin NEGATIVE Urine Urobilinogen 4.0 H Ur Leukocyte Esterase NEGATIVE Urine WBC (Auto) 1 Urine RBC (Auto) 0 Squamous Epi Cells Auto <1 Urine Mucus (Auto) RARE Urine Ascorbic Acid NEGATIVE 07/01/18 07/01/18 05:22 05:22 WBC 3.2 L RBC 3.15 L Hgb 9.9 L Hct 29.0 L MCV 92 MCH 31.4 MCHC 34.1 RDW 17.3 H Plt Count 141 L Seg Neutrophils % Lymphocytes % Monocytes % Eosinophils % Basophils % Absolute Neutrophils Absolute Lymphocytes Absolute Monocytes Absolute Eosinophils Absolute Basophils Sodium 138.4 Potassium 3.7 Chloride 108 H Carbon Dioxide 23 Anion Gap 7 BUN 22 H Creatinine 2.36 H Est GFR ( Amer) 32 L Est GFR (Non-Af Amer) 27 L Glucose 105 Calcium 7.8 L Magnesium 2.2 Total Bilirubin 2.7 H Direct Bilirubin 2.1 H Neonat Total Bilirubin Not Reportable Neonat Direct Bilirubin Not Reportable Neonat Indirect Bili Not Reportable AST 196 H ALT 153 H Alkaline Phosphatase 923 H Creatine Kinase Total Protein 4.7 L Albumin 2.6 L Lipase Urine Color Urine Appearance Urine pH Ur Specific [place] Urine Protein Urine Glucose (UA) Urine Ketones Urine Blood Urine Nitrite Urine Bilirubin Urine Urobilinogen Ur Leukocyte Esterase Urine WBC (Auto) Urine RBC (Auto) Squamous Epi Cells Auto Urine Mucus (Auto) Urine Ascorbic Acid 07/01/18 09:20 Patient presents to the emergency department for evaluation. He told to come here because of abnormal labs. He has a history of renal cancer with metastasis to the liver. He had labs done on Wednesday and he was told his "levels were rising." The patient himself denies any acute complaints or concerns. He denies knowing that his eyes were appearing yellow. He is not currently on chemotherapy or radiation. He is followed at [facility]. Upon rounding on this p atient I was informed that he has been accepted to the hospital by the hospitalist. 07/01/18 18:48
[2018-07-01] MEDS ORDERED: FEBUXOSTAT 40 MG TABLET PO SCH (10:00)
[2018-07-01] MEDS: AMLODIPINE BESYLATE 10 MG TABLET PO SCH (11:11)
[2018-07-01] MEDS: METOPROLOL TARTRATE 50 MG TABLET PO SCH (11:12)
[2018-07-01] MEDS: FINASTERIDE 5 MG TABLET PO SCH (11:12)
[2018-07-01] MEDS: BUDESONIDE/FORMOTEROL 80-4.5 MCG 60 PUFF/6.9 GM MDI IH SCH ×2 (11:28→20:06)
[2018-07-01] MEDS: TIOTROPIUM BROMIDE DPI 5 CAP/KIT (18 MCG/CAP) IH SCH (11:29)
[2018-07-01] MEDS ORDERED: PREDNISONE 20 MG TABLET PO ONE (14:00)
[2018-07-01] MEDS: LEVALBUTEROL HCL NEB 1.25 MG/3 ML AMPUL NEB SCH ×2 (16:19→17:30)
[2018-07-01] MEDS: CLONIDINE HCL 0.1 MG TABLET PO SCH (20:05)
[2018-07-01] MEDS: PREDNISONE 20 MG TABLET PO SCH (20:05)
[2018-07-01] MEDS: TAMSULOSIN HCL 0.4 MG CAP.SR.24H PO SCH (20:06)
--- NOTE | 2018-07-01 22:10 | PDOC PROGRESS REPORT ---
Subjective Progress Note for:: 07/01/18 Subjective:: The patient ate breakfast and is ambulating in the room. Reason For Visit: Markedly elevated liver chemistries Physical Exam Vital Signs: Temp Pulse Resp BP Pulse Ox 98.1 F 59 L 16 140/50 H 98 07/01/18 06:00 06/30/18 17:32 07/01/18 11:01 07/01/18 11:01 07/01/18 11:01 Intake & Output 06/30/18 07/01/18 07/02/18 06:59 06:59 06:59 Output Total 200 Balance -200 Weight 81.3 kg General appearance: PRESENT: no acute distress, cooperative, well-developed Head exam: PRESENT: normocephalic Eye exam: PRESENT: conjunctiva pale, scleral icterus Respiratory exam: PRESENT: clear to auscultation marychuy, symmetrical, unlabored. ABSENT: rales, rhonchi, wheezes Cardiovascular exam: PRESENT: RRR, +S1, +S2 GI/Abdominal exam: PRESENT: normal bowel sounds, soft. ABSENT: tenderness Rectal exam: PRESENT: deferred Musculoskeletal exam: PRESENT: ambulatory Neurological exam: PRESENT: alert, awake, oriented to person, oriented to place, oriented to time, oriented to situation, CN II-XII grossly intact Psychiatric exam: PRESENT: appropriate affect, normal mood. ABSENT: agitated, anxious Focused psych exam: ABSENT: delusional, restlessness Skin exam: PRESENT: jaundice Results Laboratory Results: 07/01/18 05:22 07/01/18 05:22 06/30/18 06/30/18 06/30/18 13:10 13:40 13:40 WBC 4.3 RBC 3.64 L Hgb 11.4 L Hct 33.9 L MCV 93 MCH 31.2 MCHC 33.5 RDW 17.5 H Plt Count 171 Seg Neutrophils % 70.2 Lymphocytes % 15.4 Monocytes % 9.0 Eosinophils % 4.5 Basophils % 0.9 Absolute Neutrophils 3.0 Absolute Lymphocytes 0.7 Absolute Monocytes 0.4 Absolute Eosinophils 0.2 Absolute Basophils 0.0 Sodium 135.9 L Potassium 4.2 Chloride 104 Carbon Dioxide 21 L Anion Gap 11 BUN 21 H Creatinine 2.47 H Est GFR ( Amer) 31 L Est GFR (Non-Af Amer) 25 L Glucose 83 Calcium 8.2 L Magnesium Total Bilirubin 3.9 H AST 237 H ALT 187 H Alkaline Phosphatase 1096 H Total Protein 5.5 L Albumin 3.3 L Lipase 193.8 Urine Color DARK YELLOW Urine Appearance CLEAR Urine pH 5.0 Ur Specific [place] 1.013 Urine Protein 100 H Urine Glucose (UA) NEGATIVE Urine Ketones NEGATIVE Urine Blood SMALL H Urine Nitrite NEGATIVE Ur Leukocyte Esterase NEGATIVE Urine WBC (Auto) 1 Urine RBC (Auto) 0 07/01/18 07/01/18 05:22 05:22 WBC 3.2 L RBC 3.15 L Hgb 9.9 L Hct 29.0 L MCV 92 MCH 31.4 MCHC 34.1 RDW 17.3 H Plt Count 141 L Seg Neutrophils % Lymphocytes % Monocytes % Eosinophils % Basophils % Absolute Neutrophils Absolute Lymphocytes Absolute Monocytes Absolute Eosinophils Absolute Basophils Sodium 138.4 Potassium 3.7 Chloride 108 H Carbon Dioxide 23 Anion Gap 7 BUN 22 H Creatinine 2.36 H Est GFR ( Amer) 32 L Est GFR (Non-Af Amer) 27 L Glucose 105 Calcium 7.8 L Magnesium 2.2 Total Bilirubin 2.7 H AST 196 H ALT 153 H Alkaline Phosphatase 923 H Total Protein 4.7 L Albumin 2.6 L Lipase Urine Color Urine Appearance Urine pH Ur Specific [place] Urine Protein Urine Glucose (UA) Urine Ketones Urine Blood Urine Nitrite Ur Leukocyte Esterase Urine WBC (Auto) Urine RBC (Auto) 06/30/18 13:40 Creatine Kinase 46 L Impressions: Abdomen Ultrasound 06/30/18 15:06 IMPRESSION: 1. Multiple cysts are seen in the left lobe of the liver. Multiple right renal cysts are present. 2. There is a 6.3 x 5 x 5 cm solid mass in the right upper quadrant as described. CT with oral and intravenous contrast is recommended. Assessment & Plan - Diagnosis (1) Elevated liver function tests Is this a current diagnosis for this admission?: Yes Plan: During routine blood work it was noted that the patient had markedly elevated liver enzymes. With his current treatment for metastatic renal carcinoma to the liver concern was for obstruction. Abdominal ultrasound revealed no dilated hepatobiliary ducts. I did contact the patient's oncologist Dr. Salcido to review the case. He was pleased that there was no obstruction. He was also pleased that the liver enzymes were improving. He explained that there was concern for an immune mediated hepatitis. The patient had recently completed high-dose steroid therapy when his enzymes began to increase. Because of this he suggested reinstituting prednisone therapy at 2 mg/kg. The patient was given 80 mg of prednisone twice daily. The patient will have repeat liver studies in the morning. If these are continuing to improve the patient can be discharged home. (2) Metastatic renal cell carcinoma to liver Is this a current diagnosis for this admission?: Yes Plan: The most current immunotherapy was postponed due to the abnormal liver function studies. Please see above. (3) Hepatitis, autoimmune Is this a current diagnosis for this admission?: Yes Plan: As noted above the patient's hepatitis is felt to be secondary to an immune mediated process. It is undecided if this is related to his immunotherapy for his metastatic renal cell carcinoma. Please see above. - Time Time Spent with patient: 35 or more minutes Medications reviewed and adjusted accordingly: Yes Anticipated discharge: Home Within: within 24 hours
[2018-07-01] MEDS: METOPROLOL TARTRATE 25 MG TABLET PO SCH (22:14)
[2018-07-01] MEDS: LOSARTAN POTASSIUM 50 MG TABLET PO SCH (22:14)
[2018-07-02] MEDS: LEVALBUTEROL HCL NEB 1.25 MG/3 ML AMPUL NEB SCH ×4 (00:47→23:22)
[2018-07-02] MEDS: PREGABALIN 100 MG CAPSULE PO SCH ×3 (05:15→22:54)
[2018-07-02 07:21] LABS: HEMATOCRIT 30.7 % (37.9-51.0); HEMOGLOBIN 10.4 g/dL (13.5-17.0); MEAN CORPUSCULAR HGB CONC 33.7 g/dL (32.0-36.0); MEAN CORPUSCULAR VOLUME 92 fl (80-97); PLATELET COUNT 169 10^3/uL (150-450); RED BLOOD COUNT 3.34 10^6/uL (4.35-5.55); RED CELL DISTRIBUTION WIDTH 17.3 % (11.5-14.0); WHITE BLOOD COUNT 3.6 10^3/uL (4.0-10.5)
[2018-07-02 07:42] LABS: ALANINE AMINOTRANSFERASE 153 U/L (21-72); ALKALINE PHOSPHATASE 1025 U/L (38-126); ANION GAP 11 (5-19); ASPARTATE AMINO TRANSFERASE 150 U/L (17-59); BILIRUBIN,DIRECT 1.7 mg/dL (0.0-0.4); BILIRUBIN,TOTAL 2.3 mg/dL (0.2-1.3); BLOOD UREA NITROGEN 23 mg/dL (7-20); CALCIUM 8.4 mg/dL (8.4-10.2); CARBON DIOXIDE 18 mmol/L (22-30); CHLORIDE 108 mmol/L (98-107); GLUCOSE 165 mg/dL (75-110); POTASSIUM 4.6 mmol/L (3.6-5.0); SODIUM 136.8 mmol/L (137-145); TOTAL PROTEIN 5.5 g/dL (6.3-8.2)
[2018-07-02] MEDS: AMLODIPINE BESYLATE 10 MG TABLET PO SCH (10:09)
[2018-07-02] MEDS: METOPROLOL TARTRATE 25 MG TABLET PO SCH ×2 (10:09→22:56)
[2018-07-02] MEDS: FINASTERIDE 5 MG TABLET PO SCH (10:09)
[2018-07-02] MEDS: PREDNISONE 20 MG TABLET PO SCH ×2 (10:10→17:59)
[2018-07-02] MEDS: BUDESONIDE/FORMOTEROL 80-4.5 MCG 60 PUFF/6.9 GM MDI IH SCH ×2 (10:11→18:02)
[2018-07-02] MEDS: TIOTROPIUM BROMIDE DPI 5 CAP/KIT (18 MCG/CAP) IH SCH (10:12)
--- NOTE | 2018-07-02 15:10 | PDOC PROGRESS REPORT ---
Subjective Progress Note for:: 07/02/18 Subjective:: This is a very pleasant 77 years old male patient with past medical history of coronary artery disease, hypertension, hyperlipidemia, CKD, COPD and renal cell carcinoma with metastasis to the liver presented with abnormal liver function test. Currently patient is under treatment for his stage IV renal cell carcinoma by his primary oncologist at [facility]. When when patient is seen he is AST was 237 which is trended to 150, ALT 1872 date is 153, alkaline phosphatase 1096 now 1025 and his total bilirubin was 3.9 today it is 2.3. So that his liver chemistry is improving it seems CBD obstruction is unlikely. Patient does not have new complaints. Patient is also getting prednisone 80 mg twice a day as recommended by his primary oncologist at [facility]. If his liver enzymes continue to trend down patient's potential discharge for tomorrow. Reason For Visit: ACUTE ABDOMINAL OBSTRUCTION Physical Exam Vital Signs: Temp Pulse Resp BP Pulse Ox 97.4 F 66 16 135/40 H 99 07/02/18 11:57 07/02/18 11:57 07/02/18 11:57 07/02/18 11:57 07/02/18 11:57 Intake & Output 07/01/18 07/02/18 07/03/18 06:59 06:59 06:59 Intake Total 475 Output Total 200 1200 Balance -200 -725 Weight 81.3 kg 79.8 kg General appearance: PRESENT: no acute distress Eye exam: PRESENT: scleral icterus - Bilateral and mild Mouth exam: PRESENT: dry mucosa Neck exam: ABSENT: carotid bruit, JVD, lymphadenopathy, thyromegaly Respiratory exam: PRESENT: decreased breath sounds Cardiovascular exam: PRESENT: RRR. ABSENT: diastolic murmur, rubs, systolic murmur GI/Abdominal exam: PRESENT: normal bowel sounds, soft. ABSENT: distended, guarding, mass, organolmegaly, rebound, tenderness Extremities exam: PRESENT: full ROM. ABSENT: calf tenderness, clubbing, pedal edema Neurological exam: PRESENT: alert, awake, oriented to time, oriented to situation Results Laboratory Results: 07/02/18 06:58 07/02/18 06:58 07/02/18 07/02/18 06:58 06:58 WBC 3.6 L RBC 3.34 L Hgb 10.4 L Hct 30.7 L MCV 92 MCH 31.0 MCHC 33.7 RDW 17.3 H Plt Count 169 Sodium 136.8 L Potassium 4.6 Chloride 108 H Carbon Dioxide 18 L Anion Gap 11 BUN 23 H Creatinine 2.16 H Est GFR ( Amer) 36 L Est GFR (Non-Af Amer) 30 L Glucose 165 H Calcium 8.4 Magnesium 2.3 Total Bilirubin 2.3 H AST 150 H ALT 153 H Alkaline Phosphatase 1025 H Total Protein 5.5 L Albumin 3.0 L 06/30/18 13:40 Creatine Kinase 46 L Impressions: Abdomen Ultrasound 06/30/18 15:06 IMPRESSION: 1. Multiple cysts are seen in the left lobe of the liver. Multiple right renal cysts are present. 2. There is a 6.3 x 5 x 5 cm solid mass in the right upper quadrant as desc ribed. CT with oral and intravenous contrast is recommended. Assessment & Plan - Diagnosis (1) Elevated liver chemistries Is this a current diagnosis for this admission?: Yes Plan: Trending down. 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 (3) Stage IV renal cell carcinoma Is this a current diagnosis for this admission?: Yes Plan: With metastasis to the liver. Currently under treatment by his primary oncologist at [facility]. (4) Coronary artery disease Is this a current diagnosis for this admission?: Yes Plan: No anginal symptoms (5) COPD (chronic obstructive pulmonary disease) Qualifiers: Emphysema type: unspecified Is this a current diagnosis for this admission?: Yes Plan: Continue as needed bronchodilators. (6) Hypertension Qualifiers: Hypertension type: essential hypertension Qualified Code(s): I10 - Essential (primary) hypertension Is this a current diagnosis for this admission?: Yes Plan: Continue current regimen (7) Hyperlipidemia Qualifiers: Hyperlipidemia type: unspecified Qualified Code(s): E78.5 - Hyperlipidemia, unspecified Is this a current diagnosis for this admission?: Yes Plan: Continue home medications.
[2018-07-02] MEDS: CLONIDINE HCL 0.1 MG TABLET PO SCH (17:59)
[2018-07-02] MEDS: TAMSULOSIN HCL 0.4 MG CAP.SR.24H PO SCH (17:59)
[2018-07-02] MEDS: LOSARTAN POTASSIUM 50 MG TABLET PO SCH (22:55)
[2018-07-03 05:24] LABS: HEMATOCRIT 31.2 % (37.9-51.0); HEMOGLOBIN 10.6 g/dL (13.5-17.0); MEAN CORPUSCULAR HGB CONC 33.9 g/dL (32.0-36.0); MEAN CORPUSCULAR VOLUME 92 fl (80-97); PLATELET COUNT 233 10^3/uL (150-450); RED CELL DISTRIBUTION WIDTH 17.3 % (11.5-14.0)
[2018-07-03] MEDS: PREGABALIN 100 MG CAPSULE PO SCH ×3 (05:28→21:53)
[2018-07-03 05:45] LABS: ALANINE AMINOTRANSFERASE 151 U/L (21-72); ALBUMIN 3.2 g/dL (3.5-5.0); ALKALINE PHOSPHATASE 944 U/L (38-126); ANION GAP 13 (5-19); ASPARTATE AMINO TRANSFERASE 140 U/L (17-59); BILIRUBIN,DIRECT 1.1 mg/dL (0.0-0.4); BILIRUBIN,TOTAL 1.6 mg/dL (0.2-1.3); BLOOD UREA NITROGEN 32 mg/dL (7-20); CALCIUM 8.8 mg/dL (8.4-10.2); CARBON DIOXIDE 18 mmol/L (22-30); CHLORIDE 107 mmol/L (98-107); GLUCOSE 148 mg/dL (75-110); POTASSIUM 4.3 mmol/L (3.6-5.0); SODIUM 138.1 mmol/L (137-145); TOTAL PROTEIN 5.5 g/dL (6.3-8.2)
[2018-07-03] MEDS: LEVALBUTEROL HCL NEB 1.25 MG/3 ML AMPUL NEB SCH ×2 (08:30→16:31)
[2018-07-03] MEDS: PREDNISONE 20 MG TABLET PO SCH ×2 (10:36→18:07)
[2018-07-03] MEDS: FINASTERIDE 5 MG TABLET PO SCH (10:36)
[2018-07-03] MEDS: METOPROLOL TARTRATE 25 MG TABLET PO SCH ×2 (10:36→21:53)
[2018-07-03] MEDS: AMLODIPINE BESYLATE 10 MG TABLET PO SCH (10:36)
[2018-07-03] MEDS: TIOTROPIUM BROMIDE DPI 5 CAP/KIT (18 MCG/CAP) IH SCH (10:37)
[2018-07-03] MEDS: BUDESONIDE/FORMOTEROL 80-4.5 MCG 60 PUFF/6.9 GM MDI IH SCH ×2 (10:37→18:07)
--- NOTE | 2018-07-03 13:28 | PDOC PROGRESS REPORT ---
Subjective Progress Note for:: 07/03/18 Subjective:: Patient is seen resting in bed comfortably. He reports is feeling better and walks in the hallway. His liver chemistries trending down steadily. His urine also gets clear. Reason For Visit: ACUTE ABDOMINAL OBSTRUCTION Physical Exam Vital Signs: Temp Pulse Resp BP Pulse Ox 97.3 F 81 16 172/56 H 96 07/03/18 11:11 07/03/18 11:11 07/03/18 11:11 07/03/18 11:11 07/03/18 11:11 Intake & Output 07/02/18 07/03/18 07/04/18 06:59 06:59 06:59 Intake Total 475 1116 Output Total 1200 625 Balance -725 491 Weight 79.8 kg 80.2 kg General appearance: PRESENT: no acute distress Eye exam: PRESENT: conjunctiva pink Mouth exam: PRESENT: moist Neck exam: ABSENT: carotid bruit, JVD, lymphadenopathy, thyromegaly Respiratory exam: PRESENT: clear to auscultation marychuy. ABSENT: rales, rhonchi, wheezes Cardiovascular exam: PRESENT: RRR. ABSENT: diastolic murmur, rubs, systolic murmur GI/Abdominal exam: PRESENT: normal bowel sounds, soft. ABSENT: distended, guarding, mass, organolmegaly, rebound, tenderness Neurological exam: PRESENT: alert, awake, oriented to time, oriented to situation Results Laboratory Results: 07/03/18 04:55 07/03/18 04:55 07/03/18 07/03/18 04:55 04:55 WBC 6.0 RBC 3.40 L Hgb 10.6 L Hct 31.2 L MCV 92 MCH 31.0 MCHC 33.9 RDW 17.3 H Plt Count 233 Sodium 138.1 Potassium 4.3 Chloride 107 Carbon Dioxide 18 L Anion Gap 13 BUN 32 H Creatinine 2.10 H Est GFR ( Amer) 37 L Est GFR (Non-Af Amer) 31 L Glucose 148 H Calcium 8.8 Magnesium 2.4 H Total Bilirubin 1.6 H AST 140 H ALT 151 H Alkaline Phosphatase 944 H Total Protein 5.5 L Albumin 3.2 L 06/30/18 13:40 Creatine Kinase 46 L Impressions: Abdomen Ultrasound 06/30/18 15:06 IMPRESSION: 1. Multiple cysts are seen in the left lobe of the liver. Multiple right renal cysts are present. 2. There is a 6.3 x 5 x 5 cm solid mass in the right upper quadrant as described. CT with oral and intravenous contrast is recommended. Assessment & Plan - Diagnosis (1) Elevated liver chemistries Is this a current diagnosis for this admission?: Yes Plan: Trending down. 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 (3) Stage IV renal cell carcinoma Is this a current diagnosis for this admission?: Yes Plan: With metastasis to the liver. Currently under treatment by his primary oncologist at [facility]. (4) Coronary artery disease Is this a current diagnosis for this admission?: Yes Plan: No anginal symptoms (5) COPD (chronic obstructive pulmonary disease) Qualifiers: Emphysema type: unspecified Is this a current diagnosis for this admission?: Yes Plan: Continue as needed bronchodilators. (6) Hypertension Qualifiers: Hypertension type: essential hypertension Qualified Code(s): I10 - Essential (primary) hypertension Is this a current diagnosis for this admission?: Yes Plan: Continue current regimen (7) Hyperlipidemia Qualifiers: Hyperlipidemia type: unspecified Qualified Code(s): E78.5 - Hyperlipidemia, unspecified Is this a current diagnosis for this admission?: Yes Plan: Continue home medications.
[2018-07-03] MEDS: CLONIDINE HCL 0.1 MG TABLET PO SCH (18:07)
[2018-07-03] MEDS: TAMSULOSIN HCL 0.4 MG CAP.SR.24H PO SCH (18:07)
[2018-07-03] MEDS: LOSARTAN POTASSIUM 50 MG TABLET PO SCH (21:53)
[2018-07-04] MEDS: LEVALBUTEROL HCL NEB 1.25 MG/3 ML AMPUL NEB SCH ×2 (00:33→08:47)
[2018-07-04] MEDS: PREGABALIN 100 MG CAPSULE PO SCH (05:04)
[2018-07-04 06:48] LABS: HEMATOCRIT 29.5 % (37.9-51.0); MEAN CORPUSCULAR HEMOGLOBIN 31.5 pg (27.0-33.4); MEAN CORPUSCULAR VOLUME 93 fl (80-97); PLATELET COUNT 227 10^3/uL (150-450); RED BLOOD COUNT 3.18 10^6/uL (4.35-5.55); RED CELL DISTRIBUTION WIDTH 17.8 % (11.5-14.0); WHITE BLOOD COUNT 6.7 10^3/uL (4.0-10.5)
[2018-07-04 07:06] LABS: ALANINE AMINOTRANSFERASE 163 U/L (21-72); ALBUMIN 3.1 g/dL (3.5-5.0); ALKALINE PHOSPHATASE 752 U/L (38-126); ANION GAP 9 (5-19); ASPARTATE AMINO TRANSFERASE 124 U/L (17-59); BILIRUBIN,DIRECT 0.9 mg/dL (0.0-0.4); BILIRUBIN,TOTAL 1.2 mg/dL (0.2-1.3); BLOOD UREA NITROGEN 41 mg/dL (7-20); CALCIUM 8.5 mg/dL (8.4-10.2); CARBON DIOXIDE 19 mmol/L (22-30); CHLORIDE 110 mmol/L (98-107); GLUCOSE 126 mg/dL (75-110); POTASSIUM 4.9 mmol/L (3.6-5.0); SODIUM 137.7 mmol/L (137-145); TOTAL PROTEIN 5.5 g/dL (6.3-8.2)
[2018-07-04 07:10] LABS: ABSOLUTE LYMPHOCYTES# (MANUAL) 0.2 10^3/uL (0.5-4.7); ABSOLUTE MONOCYTES # (MANUAL) 0.2 10^3/uL (0.1-1.4); ABSOLUTE NEUTROPHILS# (MANUAL) 6.3 10^3/uL (1.7-8.2); ANISOCYTOSIS 2+; BASOPHILS % (MANUAL) 0 % (0-2); EOSINOPHILS % (MANUAL) 0 % (0-6); LYMPHOCYTES % (MANUAL) 3 % (13-45); MONOCYTES % (MANUAL) 3 % (3-13); POLYCHROMASIA 2+; SEGMENTED NEUTROPHILS % (MAN) 94 % (42-78); TOTAL CELLS COUNTED 100
[2018-07-04 07:11] LABS: PLATELET COMMENT ADEQUATE
[2018-07-04] MEDS: PREDNISONE 20 MG TABLET PO SCH (09:09)
[2018-07-04] MEDS: FINASTERIDE 5 MG TABLET PO SCH (09:10)
[2018-07-04] MEDS: METOPROLOL TARTRATE 25 MG TABLET PO SCH (09:10)
[2018-07-04] MEDS: AMLODIPINE BESYLATE 10 MG TABLET PO SCH (09:10)
[2018-07-04] MEDS: BUDESONIDE/FORMOTEROL 80-4.5 MCG 60 PUFF/6.9 GM MDI IH SCH (09:11)
[2018-07-04] MEDS: TIOTROPIUM BROMIDE DPI 5 CAP/KIT (18 MCG/CAP) IH SCH (09:11)
--- NOTE | 2018-07-04 10:42 | PDOC DISCHARGE SUMMARY ---
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 Is this a current diagnosis for this admission?: Yes (3) Stage IV renal cell carcinoma Is this a current diagnosis for this admission?: Yes (4) Coronary artery disease Is this a current diagnosis for this admission?: Yes (5) COPD (chronic obstructive pulmonary disease) Is this a current diagnosis for this admission?: Yes (6) Hypertension Is this a current diagnosis for this admission?: Yes (7) Hyperlipidemia Is this a current diagnosis for this admission?: Yes - Additional Information Resuscitation Status: Full Code Home Medications: Amlodipine Besylate [Norvasc 10 mg Tablet] 10 mg PO DAILY 05/16/18 Aspirin [Aspirin 81 mg Chewable Tablet] 81 mg PO DAILY 05/16/18 Budesonide/Formoterol Fumarate [Symbicort HFA 80-4.5 mcg Inhaler 6.9 gm] 2 puff IH BID 05/16/18 Clonidine HCl [Catapres 0.1 mg Tablet] 0.1 mg PO QPM 05/16/18 Febuxostat [Uloric 40 mg Tablet] 40 mg PO DAILY 05/16/18 Finasteride [Proscar 5 mg Tablet] 5 mg PO DAILY 05/16/18 Losartan Potassium [Cozaar 50 mg Tablet] 50 mg PO QHS 05/16/18 Pregabalin [Lyrica 100 mg Capsule] 100 mg PO Q8 05/16/18 Tamsulosin HCl [Flomax 0.4 mg Cap.sr] 0.4 mg PO QPM 05/16/18 Tiotropium [place] [Spiriva Handihaler 5 Cap/Kit (18 Mcg/Cap)] 1 cap IH DAILY 05/16/18 Metoprolol Tartrate [Lopressor 25 mg Tablet] 12.5 mg PO Q12 07/01/18 Triamcinolone 0.1% Lotion 1 applic TP QID 07/01/18 History of Present Illness History of Present Illness: MATT TIERNEY is a 77 year old male who presented to the emergency room with a complaint that his laboratory testing done by his oncologist at [facility] earlier this week were abnormal and he was instructed to come to the emergency room for reevaluation. He offers no new or acute complaints. He was noted in the emergency room to be jaundiced and all of his hepatic function studies were significantly elevated. The emergency room physician managing the patient's care contacted his oncologist at [facility] and arrangements were made for the patient to be transferred to their [facility] for further evaluation and treatment. However the patient's transfer will be delayed substantially due to a bed shortage and as such the emergency room physician has requested at our hospital service consult and manage the patient's chronic medical problems of hypertension, COPD, hyperlipidemia, gout and benign prostatic hypertrophy. Additionally we will be assisting the emergency room department physicians with monitoring and managing his elevated liver enzymes and any problems related to the hepatic metastases of his stage IV renal cell ca rcinoma. Hospital Course Hospital Course: This is a very pleasant 77 years old male patient with past medical history of coronary artery disease, hypertension, hyperlipidemia, CKD, COPD and renal cell carcinoma with metastasis to the liver presented with abnormal liver function test. Currently patient is under treatment for his stage IV renal cell carcinoma by his primary oncologist [facility]. When when patient is seen he is AST was 237 which is trended to 124, ALT 1872 date is 163, alkaline phosphatase 1096 now 752 and his total bilirubin was 3.9 today it is 1.2. So that his liver chemistry is improving it seems CBD obstruction is unlikely. Patient does not have new complaints. Patient has been on prednisone 80 mg twice a day as recom mended by his primary oncologist Dr. Sheldon. He is liver enzymes has markedly reduced especially his total bilirubin has normalized. This morning I seen patient propped up in bed. He is awake alert oriented. He is not in pain or distress. I will discharge him today with tapering dose of prednisone and follow-up with his primary oncologist. Physical Exam Vital Signs: Temp Pulse Resp BP Pulse Ox 97.4 F 74 16 148/52 H 96 07/04/18 07:22 07/04/18 08:49 07/04/18 08:49 07/04/18 07:22 07/04/18 08:49 Intake & Output 07/03/18 07/04/18 07/05/18 06:59 06:59 06:59 Intake Total 1116 1080 Output Total 625 1100 Balance 491 -20 Weight 80.2 kg 80.2 kg General appearance: PRESENT: no acute distress Neck exam: ABSENT: carotid bruit, JVD, lymphadenopathy, thyromegaly Respiratory exam: PRESENT: crackles, decreased breath sounds Cardiovascular exam: PRESENT: RRR. ABSENT: diastolic murmur, rubs, systolic murmur Neurological exam: PRESENT: alert, awake, oriented to time, oriented to situation Psychiatric exam: PRESENT: normal mood Results Laboratory Results: 07/04/18 05:57 07/04/18 05:57 07/04/18 07/04/18 05:57 05:57 WBC 6.7 RBC 3.18 L Hgb 10.0 L Hct 29.5 L MCV 93 MCH 31.5 MCHC 34.0 RDW 17.8 H Plt Count 227 Seg Neutrophils % Not Reportable Lymphocytes % Not Reportable Monocytes % Not Reportable Eosinophils % Not Reportable Basophils % Not Reportable Absolute Neutrophils Not Reportable Absolute Lymphocytes Not Reportable Absolute Monocytes Not Reportable Absolute Eosinophils Not Reportable Absolute Basophils Not Reportable Sodium 137.7 Potassium 4.9 Chloride 110 H Carbon Dioxide 19 L Anion Gap 9 BUN 41 H Creatinine 2.02 H Est GFR ( Amer) 39 L Est GFR (Non-Af Amer) 32 L Glucose 126 H Calcium 8.5 Total Bilirubin 1.2 AST 124 H ALT 163 H Alkaline Phosphatase 752 H Total Protein 5.5 L Albumin 3.1 L 06/30/18 13:40 Creatine Kinase 46 L Impressions: Abdomen Ultrasound 06/30/18 15:06 IMPRESSION: 1. Multiple cysts are seen in the left lobe of the liver. Multiple right renal cysts are present. 2. There is a 6.3 x 5 x 5 cm solid mass in the right upper quadrant as described. CT with oral and intravenous contrast is recommended. Qualifiers - * PATIENT BEING DISCHARGED WITH ANY OF THE FOLLOWING DIAGNOSIS: No
[2018-07-04 11:25] VITALS: BP 149/51
--- NOTE | 2018-07-11 08:26 | PDOC H&P ---
History of Present Illness Admission Date/PCP: 07/01/18 15:13 DREA PADGETT MD Patient complains of: See Dr. Holly's consult note for details of history and the physical exam at the time of presentation to the hospital. History of Present Illness: Please see details in Dr. 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 Denies: Diabetes Mellitus Type 1, Diabetes Mellitus Type 2, Hyperthyroidism Renal/ Medical History: Reports: Chronic Kidney Disease, Other - 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 Denies: Nephrolithiasis Malignancy Medical History: Reports: Renal (Kidney) Cancer - With known hepatic metastasis GI Medical History: Denies: Cirrhosis, Hepatitis, Peptic Ulcer Disease Musculoskeltal Medical History: Reports: Arthritis - gout, Gout Denies: Fibromyalgia Skin Medical History: Denies: Eczema, Psoriasis Psychiatric Medical History: Denies: Alcohol Dependency, Depression, Substance Abuse, Tobacco Dependency Traumatic Medical History: Reports: None Hematology: Reports: Anemia Denies: Bleeding Tendencies Infectious Medical History: Reports: None Past Surgical History Past Surgical History: Reports: Cholecystectomy, Other - 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 denies: DM, Malignancy Parental Family History Reviewed: Yes Children Family History Reviewed: Yes Sibling(s) Family History Reviewed.: Yes Medication/Allergy Home Medications: Amlodipine Besylate [Norvasc 10 mg Tablet] 10 mg PO DAILY 05/16/18 Aspirin [Aspirin 81 mg Chewable Tablet] 81 mg PO DAILY 05/16/18 Budesonide/Formoterol Fumarate [Symbicort HFA 80-4.5 mcg Inhaler 6.9 gm] 2 puff IH BID 05/16/18 Clonidine HCl [Catapres 0.1 mg Tablet] 0.1 mg PO QPM 05/16/18 Febuxostat [Uloric 40 mg Tablet] 40 mg PO DAILY 05/16/18 Finasteride [Proscar 5 mg Tablet] 5 mg PO DAILY 05/16/18 Losartan Potassium [Cozaar 50 mg Tablet] 50 mg PO QHS 05/16/18 Pregabalin [Lyrica 100 mg Capsule] 100 mg PO Q8 05/16/18 Tamsulosin HCl [Flomax 0.4 mg Cap.sr] 0.4 mg PO QPM 05/16/18 Tiotropium [place] [Spiriva Handihaler 5 Cap/Kit (18 Mcg/Cap)] 1 cap IH DAILY 05/16/18 Metoprolol Tartrate [Lopressor 25 mg Tablet] 12.5 mg PO Q12 07/01/18 Triamcinolone 0.1% Lotion 1 applic TP QID 07/01/18 Prednisone 5 mg PO DAILY #30 tab.ds.pk 07/04/18 Prednisone 10 mg PO BID 2 Days #4 tab.ds.pk 07/04/18 Prednisone [Deltasone 20 mg Tablet] 20 mg PO BID 2 Days #4 tablet 07/04/18 Prednisone [Deltasone 20 mg Tablet] 40 mg PO BID 2 Days #8 tablet 07/04/18 Allergies/Adverse Reactions: iohexol [From Omnipaque] Adverse Reaction (Severe, Verified 07/01/18 15:14) Renal failure contrast dye Allergy (Severe, Uncoded 07/01/18 15:14) kidney failure Physical Exam Vital Signs: Temp Pulse Resp BP Pulse Ox 97.4 F 74 16 149/51 H 96 07/04/18 11:17 07/04/18 11:17 07/04/18 11:17 07/04/18 11:17 07/04/18 11:17 Results Laboratory Results: 07/04/18 05:57 07/04/18 05:57 06/30/18 13:40 Creatine Kinase 46 L Impressions: Abdomen Ultrasound 06/30/18 15:06 IMPRESSION: 1. Multiple cysts are seen in the left lobe of the liver. Multiple right renal cysts are present. 2. There is a 6.3 x 5 x 5 cm solid mass in the right upper quadrant as described. CT with oral and intravenous contrast is recommended. Assessment & Plan - Diagnosis (1) Elevated liver function tests Is this a current diagnosis for this admission?: Yes (2) Metastatic renal cell carcinoma to liver Is this a current diagnosis for this admission?: Yes (3) Hepatitis, autoimmune Is this a current diagnosis for this admission?: Yes - Plan Summary Plan Summary: Please see Dr. Holly's consult note from June 30, 2018. This will serve as the admission history and physical.
== END 2018-07-04 12:00 | disposition home or self-care (01) | DRG 436 ==
LOC: ER 12:17 → EH 07-01 15:13 → 4N 07-01 17:33
PROVIDERS: ADMIT Hospitalist; ATTEND Hospitalist
DX: C78.7 Secondary malignant neoplasm of liver and intrahepatic bile duct (principal); C64.1 Malignant neoplasm of right kidney, except renal pelvis; B02.29 Other postherpetic nervous system involvement; K75.4 Autoimmune hepatitis; I25.10 Atherosclerotic heart disease of native coronary artery without angina pectoris; I25.2 Old myocardial infarction; E78.5 Hyperlipidemia, unspecified; R94.5 Abnormal results of liver function studies; I10 Essential (primary) hypertension; N40.0 Benign prostatic hyperplasia without lower urinary tract symptoms; G89.29 Other chronic pain; J44.9 Chronic obstructive pulmonary disease, unspecified; E03.9 Hypothyroidism, unspecified; N18.9 Chronic kidney disease, unspecified; M19.90 Unspecified osteoarthritis, unspecified site; M10.9 Gout, unspecified; Z91.041 Radiographic dye allergy status; Z88.8 Allergy status to other drugs, medicaments and biological substances; Z82.49 Family history of ischemic heart disease and other diseases of the circulatory system; Z83.3 Family history of diabetes mellitus; Z90.49 Acquired absence of other specified parts of digestive tract; Z90.5 Acquired absence of kidney; Z79.899 Other long term (current) drug therapy
CPT/HCPCS: 36415; 76705; 80053; 81001; 82550; 83690; 83735; 85025; 85027; 93005; 93010; 99285; J3490; J7512

== ENCOUNTER → 2018-08-10 | Outpatient (CLI) | payer MEDICARE ==
[2018-08-10 08:47] LABS: APPEARANCE,URINE CLEAR; BILIRUBIN,URINE NEGATIVE (NEGATIVE); COLOR,URINE YELLOW; GLUCOSE, URINE NEGATIVE (NEGATIVE); HEMOGLOBIN 12.1 g/dL (13.5-17.0); KETONES,URINE NEGATIVE (NEGATIVE); LEUKOCYTE ESTERASE,URINE NEGATIVE (NEGATIVE); MEAN CORPUSCULAR HEMOGLOBIN 30.9 pg (27.0-33.4); MEAN CORPUSCULAR HGB CONC 34.5 g/dL (32.0-36.0); MEAN CORPUSCULAR VOLUME 90 fl (80-97); NITRITE,URINE NEGATIVE (NEGATIVE); PLATELET COUNT 183 10^3/uL (150-450); PROTEIN,URINE 100 mg/dL (NEGATIVE); RED CELL DISTRIBUTION WIDTH 14.7 % (11.5-14.0); URINE SPECIFIC GRAVITY 1.011; UROBILINOGEN,URINE NEGATIVE mg/dL (<2.0); WHITE BLOOD COUNT 9.4 10^3/uL (4.0-10.5)
[2018-08-10 09:06] LABS: ANION GAP 6 (5-19); BLOOD UREA NITROGEN 38 mg/dL (7-20); CALCIUM 8.4 mg/dL (8.4-10.2); CARBON DIOXIDE 24 mmol/L (22-30); CHLORIDE 109 mmol/L (98-107); GLUCOSE 83 mg/dL (75-110); POTASSIUM 4.7 mmol/L (3.6-5.0); SODIUM 138.6 mmol/L (137-145)
== END ==
LOC: OD 08:12
PROVIDERS: ATTEND Physician Assistant Medical
DX: I12.9 Hypertensive chronic kidney disease with stage 1 through stage 4 chronic kidney disease, or unspecified chronic kidney disease (principal); N18.4 Chronic kidney disease, stage 4 (severe); R80.9 Proteinuria, unspecified; E87.5 Hyperkalemia; M10.00 Idiopathic gout, unspecified site
CPT/HCPCS: 36415; 80048; 81001; 83970; 85027

== ENCOUNTER → 2018-10-12 | Outpatient (CLI) | payer MEDICARE ==
[2018-10-12 08:52] LABS: ANION GAP 11 (5-19); BLOOD UREA NITROGEN 35 mg/dL (7-20); CALCIUM 8.9 mg/dL (8.4-10.2); CARBON DIOXIDE 23 mmol/L (22-30); CHLORIDE 109 mmol/L (98-107); GLUCOSE 103 mg/dL (75-110); POTASSIUM 5.1 mmol/L (3.6-5.0); SODIUM 142.7 mmol/L (137-145)
== END ==
LOC: OD 07:52
PROVIDERS: ATTEND Physician Assistant Medical
DX: I12.9 Hypertensive chronic kidney disease with stage 1 through stage 4 chronic kidney disease, or unspecified chronic kidney disease (principal); N18.4 Chronic kidney disease, stage 4 (severe); R80.9 Proteinuria, unspecified; R60.9 Edema, unspecified; E87.5 Hyperkalemia
CPT/HCPCS: 36415; 80048

== ENCOUNTER → 2018-11-09 | Outpatient (CLI) | payer MEDICARE ==
[2018-11-09 09:45] LABS: ANION GAP 8 (5-19); BLOOD UREA NITROGEN 30 mg/dL (7-20); CALCIUM 8.7 mg/dL (8.4-10.2); CARBON DIOXIDE 24 mmol/L (22-30); CHLORIDE 110 mmol/L (98-107); GLUCOSE 92 mg/dL (75-110); POTASSIUM 4.5 mmol/L (3.6-5.0); SODIUM 142.1 mmol/L (137-145)
== END ==
LOC: OD 08:27
PROVIDERS: ATTEND Physician Assistant Medical
DX: N18.4 Chronic kidney disease, stage 4 (severe) (principal); I12.9 Hypertensive chronic kidney disease with stage 1 through stage 4 chronic kidney disease, or unspecified chronic kidney disease; R80.9 Proteinuria, unspecified; E87.5 Hyperkalemia; E87.2 Acidosis
CPT/HCPCS: 36415; 80048

== ENCOUNTER → 2018-12-30 | Outpatient (CLI) | payer MEDICARE ==
[2018-12-30 15:24] LABS: ABSOLUTE EOSINOPHILS # (AUTO) 0.3 10^3/uL (0.0-0.6); ABSOLUTE LYMPHOCYTES (AUTO) 0.7 10^3/uL (0.5-4.7); ABSOLUTE MONOCYTES (AUTO) 0.6 10^3/uL (0.1-1.4); ABSOLUTE NEUT (AUTO) 4.3 10^3/uL (1.7-8.2); BASOPHILS % (AUTO) 0.5 % (0-2); EOSINOPHILS % (AUTO) 5.3 % (0-6); HEMATOCRIT 27.7 % (37.9-51.0); HEMOGLOBIN 9.4 g/dL (13.5-17.0); LYMPHOCYTES % (AUTO) 11.4 % (13-45); MEAN CORPUSCULAR HEMOGLOBIN 30.4 pg (27.0-33.4); MEAN CORPUSCULAR HGB CONC 33.9 g/dL (32.0-36.0); MEAN CORPUSCULAR VOLUME 90 fl (80-97); MONOCYTES % (AUTO) 9.7 % (3-13); PLATELET COUNT 167 10^3/uL (150-450); RED BLOOD COUNT 3.09 10^6/uL (4.35-5.55); RED CELL DISTRIBUTION WIDTH 17.5 % (11.5-14.0); SEGMENTED NEUTROPHILS % (AUTO) 73.1 % (42-78); TOTAL CELLS COUNTED % (AUTO) 100 %; WHITE BLOOD COUNT 5.8 10^3/uL (4.0-10.5)
[2018-12-30 15:43] LABS: ANION GAP 8 (5-19); BLOOD UREA NITROGEN 37 mg/dL (7-20); CALCIUM 8.8 mg/dL (8.4-10.2); CARBON DIOXIDE 23 mmol/L (22-30); CHLORIDE 109 mmol/L (98-107); GLUCOSE 114 mg/dL (75-110); PHOSPHORUS 4.9 mg/dL (2.5-4.5); POTASSIUM 4.6 mmol/L (3.6-5.0)
[2018-12-30 16:07] LABS: APPEARANCE,URINE CLEAR; BILIRUBIN,URINE NEGATIVE (NEGATIVE); COLOR,URINE YELLOW; GLUCOSE, URINE 50 mg/dL (NEGATIVE); KETONES,URINE NEGATIVE (NEGATIVE); LEUKOCYTE ESTERASE,URINE NEGATIVE (NEGATIVE); NITRITE,URINE NEGATIVE (NEGATIVE); PROTEIN,URINE 100 mg/dL (NEGATIVE); URINE SPECIFIC GRAVITY 1.011; UROBILINOGEN,URINE NEGATIVE mg/dL (<2.0)
== END ==
LOC: OD 14:58
PROVIDERS: ATTEND Physician Assistant Medical
DX: N17.9 Acute kidney failure, unspecified (principal); I12.9 Hypertensive chronic kidney disease with stage 1 through stage 4 chronic kidney disease, or unspecified chronic kidney disease; N18.4 Chronic kidney disease, stage 4 (severe); E87.2 Acidosis; E83.42 Hypomagnesemia
CPT/HCPCS: 36415; 80048; 81001; 83970; 84100; 85025

== ENCOUNTER → 2019-01-16 | Outpatient (CLI) | payer MEDICARE | LOC: OD 13:29 | PROVIDERS: ATTEND Physician Assistant Medical | DX: D64.9 Anemia, unspecified (principal) | CPT/HCPCS: 36415; 82728; 83540; 83550; 84443 ==

== ENCOUNTER → 2019-03-03 | Outpatient (CLI) | payer MEDICARE ==
[2019-03-03 16:02] LABS: ABSOLUTE EOSINOPHILS # (AUTO) 0.2 10^3/uL (0.0-0.6); ABSOLUTE LYMPHOCYTES (AUTO) 0.7 10^3/uL (0.5-4.7); ABSOLUTE MONOCYTES (AUTO) 0.5 10^3/uL (0.1-1.4); ABSOLUTE NEUT (AUTO) 4.9 10^3/uL (1.7-8.2); APPEARANCE,URINE CLEAR; BASOPHILS % (AUTO) 0.4 % (0-2); BILIRUBIN,URINE NEGATIVE (NEGATIVE); COLOR,URINE YELLOW; GLUCOSE, URINE NEGATIVE (NEGATIVE); HEMATOCRIT 36.1 % (37.9-51.0); KETONES,URINE NEGATIVE (NEGATIVE); LEUKOCYTE ESTERASE,URINE NEGATIVE (NEGATIVE); LYMPHOCYTES % (AUTO) 11.5 % (13-45); MEAN CORPUSCULAR HEMOGLOBIN 28.9 pg (27.0-33.4); MEAN CORPUSCULAR HGB CONC 33.4 g/dL (32.0-36.0); MEAN CORPUSCULAR VOLUME 87 fl (80-97); MONOCYTES % (AUTO) 8.4 % (3-13); NITRITE,URINE NEGATIVE (NEGATIVE); PLATELET COUNT 190 10^3/uL (150-450); PROTEIN,URINE 100 mg/dL (NEGATIVE); RED BLOOD COUNT 4.17 10^6/uL (4.35-5.55); RED CELL DISTRIBUTION WIDTH 15.2 % (11.5-14.0); SEGMENTED NEUTROPHILS % (AUTO) 76.7 % (42-78); TOTAL CELLS COUNTED % (AUTO) 100 %; URINE SPECIFIC GRAVITY 1.011; UROBILINOGEN,URINE NEGATIVE mg/dL (<2.0); WHITE BLOOD COUNT 6.4 10^3/uL (4.0-10.5)
[2019-03-03 16:18] LABS: ANION GAP 10 (5-19); BLOOD UREA NITROGEN 41 mg/dL (7-20); CALCIUM 9.3 mg/dL (8.4-10.2); CARBON DIOXIDE 22 mmol/L (22-30); CHLORIDE 106 mmol/L (98-107); GLUCOSE 105 mg/dL (75-110); IRON(TIBC) 47.4 ug/dL (49-181); PHOSPHORUS 6.3 mg/dL (2.5-4.5)
[2019-03-03 16:20] LABS: URINE CREATININE 60.6 mg/dL (22-328)
[2019-03-03 16:30] LABS: UR PRO/CREAT RATIO RESULT 7.4 mg/mg (0.0-0.2); URINE PROTEIN 445.7 mg/dL (<12)
== END ==
LOC: OD 15:26
PROVIDERS: ATTEND Physician Assistant Medical
DX: I12.9 Hypertensive chronic kidney disease with stage 1 through stage 4 chronic kidney disease, or unspecified chronic kidney disease (principal); N18.4 Chronic kidney disease, stage 4 (severe); D64.9 Anemia, unspecified; E87.5 Hyperkalemia; E87.2 Acidosis; R80.9 Proteinuria, unspecified
CPT/HCPCS: 36415; 80048; 81001; 82570; 82728; 83540; 83550; 83970; 84100; 84156; 85025

== ENCOUNTER → 2019-04-05 | Outpatient (CLI) | payer MEDICARE ==
[2019-04-05 08:57] LABS: ABSOLUTE EOSINOPHILS # (AUTO) 0.2 10^3/uL (0.0-0.6); ABSOLUTE LYMPHOCYTES (AUTO) 0.7 10^3/uL (0.5-4.7); ABSOLUTE MONOCYTES (AUTO) 0.6 10^3/uL (0.1-1.4); ABSOLUTE NEUT (AUTO) 4.7 10^3/uL (1.7-8.2); BASOPHILS % (AUTO) 0.6 % (0-2); EOSINOPHILS % (AUTO) 2.7 % (0-6); HEMATOCRIT 38.4 % (37.9-51.0); HEMOGLOBIN 12.8 g/dL (13.5-17.0); LYMPHOCYTES % (AUTO) 11.4 % (13-45); MEAN CORPUSCULAR HEMOGLOBIN 28.7 pg (27.0-33.4); MEAN CORPUSCULAR HGB CONC 33.2 g/dL (32.0-36.0); MEAN CORPUSCULAR VOLUME 87 fl (80-97); MONOCYTES % (AUTO) 9.6 % (3-13); PLATELET COUNT 185 10^3/uL (150-450); RED BLOOD COUNT 4.44 10^6/uL (4.35-5.55); RED CELL DISTRIBUTION WIDTH 15.2 % (11.5-14.0); SEGMENTED NEUTROPHILS % (AUTO) 75.7 % (42-78); TOTAL CELLS COUNTED % (AUTO) 100 %; WHITE BLOOD COUNT 6.2 10^3/uL (4.0-10.5)
[2019-04-05 09:04] LABS: APPEARANCE,URINE CLEAR; BILIRUBIN,URINE NEGATIVE (NEGATIVE); COLOR,URINE STRAW; GLUCOSE, URINE 50 mg/dL (NEGATIVE); KETONES,URINE NEGATIVE (NEGATIVE); LEUKOCYTE ESTERASE,URINE NEGATIVE (NEGATIVE); NITRITE,URINE NEGATIVE (NEGATIVE); PROTEIN,URINE >=500 mg/dL (NEGATIVE); URINE SPECIFIC GRAVITY 1.009; UROBILINOGEN,URINE NEGATIVE mg/dL (<2.0)
[2019-04-05 09:31] LABS: ALBUMIN 4.1 g/dL (3.5-5.0); ALKALINE PHOSPHATASE 105 U/L (38-126); ANION GAP 13 (5-19); ASPARTATE AMINO TRANSFERASE 14 U/L (17-59); BILIRUBIN,DIRECT 0.2 mg/dL (0.0-0.4); BILIRUBIN,TOTAL 0.3 mg/dL (0.2-1.3); BLOOD UREA NITROGEN 41 mg/dL (7-20); CALCIUM 9.2 mg/dL (8.4-10.2); CARBON DIOXIDE 22 mmol/L (22-30); CHLORIDE 107 mmol/L (98-107); GLUCOSE 94 mg/dL (75-110); PHOSPHORUS 5.4 mg/dL (2.5-4.5); POTASSIUM 5.2 mmol/L (3.6-5.0); TOTAL PROTEIN 6.9 g/dL (6.3-8.2)
[2019-04-05 09:43] LABS: URINE CREATININE 60.3 mg/dL (22-328)
[2019-04-05 09:54] LABS: UR PRO/CREAT RATIO RESULT 6.2 mg/mg (0.0-0.2); URINE PROTEIN 372.8 mg/dL (<12)
== END ==
LOC: OD 08:32
PROVIDERS: ATTEND Physician Assistant Medical
DX: I12.9 Hypertensive chronic kidney disease with stage 1 through stage 4 chronic kidney disease, or unspecified chronic kidney disease (principal); N18.4 Chronic kidney disease, stage 4 (severe); D63.1 Anemia in chronic kidney disease; R80.9 Proteinuria, unspecified; E87.5 Hyperkalemia; E87.2 Acidosis
CPT/HCPCS: 36415; 80053; 81001; 82306; 82570; 83970; 84100; 84156; 85025

== ENCOUNTER → 2019-05-12 | Outpatient (CLI) | payer MEDICARE ==
[2019-05-12 09:29] LABS: ABSOLUTE EOSINOPHILS # (AUTO) 0.2 10^3/uL (0.0-0.6); ABSOLUTE LYMPHOCYTES (AUTO) 0.8 10^3/uL (0.5-4.7); ABSOLUTE MONOCYTES (AUTO) 0.7 10^3/uL (0.1-1.4); BASOPHILS % (AUTO) 0.6 % (0-2); EOSINOPHILS % (AUTO) 3.4 % (0-6); HEMATOCRIT 34.5 % (37.9-51.0); HEMOGLOBIN 11.7 g/dL (13.5-17.0); LYMPHOCYTES % (AUTO) 11.2 % (13-45); MEAN CORPUSCULAR HEMOGLOBIN 29.3 pg (27.0-33.4); MEAN CORPUSCULAR HGB CONC 33.8 g/dL (32.0-36.0); MEAN CORPUSCULAR VOLUME 87 fl (80-97); MONOCYTES % (AUTO) 10.4 % (3-13); PLATELET COUNT 180 10^3/uL (150-450); RED BLOOD COUNT 3.98 10^6/uL (4.35-5.55); SEGMENTED NEUTROPHILS % (AUTO) 74.4 % (42-78); TOTAL CELLS COUNTED % (AUTO) 100 %; WHITE BLOOD COUNT 6.7 10^3/uL (4.0-10.5)
[2019-05-12 09:34] LABS: APPEARANCE,URINE CLEAR; BILIRUBIN,URINE NEGATIVE (NEGATIVE); COLOR,URINE STRAW; GLUCOSE, URINE NEGATIVE (NEGATIVE); KETONES,URINE NEGATIVE (NEGATIVE); LEUKOCYTE ESTERASE,URINE NEGATIVE (NEGATIVE); NITRITE,URINE NEGATIVE (NEGATIVE); PROTEIN,URINE >=500 mg/dL (NEGATIVE); URINE SPECIFIC GRAVITY 1.009; UROBILINOGEN,URINE NEGATIVE mg/dL (<2.0)
[2019-05-12 09:51] LABS: ALBUMIN 3.9 g/dL (3.5-5.0); ANION GAP 12 (5-19); BLOOD UREA NITROGEN 43 mg/dL (7-20); CALCIUM 9.4 mg/dL (8.4-10.2); CARBON DIOXIDE 22 mmol/L (22-30); CHLORIDE 107 mmol/L (98-107); GLUCOSE 87 mg/dL (75-110); PHOSPHORUS 5.1 mg/dL (2.5-4.5); POTASSIUM 5.1 mmol/L (3.6-5.0)
[2019-05-12 10:08] LABS: URINE CREATININE 61.6 mg/dL (22-328)
[2019-05-12 10:17] LABS: UR PRO/CREAT RATIO RESULT 4.9 mg/mg (0.0-0.2); URINE PROTEIN 304.2 mg/dL (<12)
== END ==
LOC: OD 08:41
PROVIDERS: ATTEND Physician Assistant Medical
DX: I12.9 Hypertensive chronic kidney disease with stage 1 through stage 4 chronic kidney disease, or unspecified chronic kidney disease (principal); N18.4 Chronic kidney disease, stage 4 (severe)
CPT/HCPCS: 36415; 80069; 81001; 82570; 82728; 83540; 83550; 83970; 84156; 85025

== ENCOUNTER → 2019-11-08 | Outpatient (CLI) | payer MEDICARE ==
[2019-11-08 13:29] LABS: HEMATOCRIT 26.5 % (37.9-51.0); HEMOGLOBIN 8.8 g/dL (13.5-17.0); MEAN CORPUSCULAR HEMOGLOBIN 29.2 pg (27.0-33.4); MEAN CORPUSCULAR HGB CONC 33.1 g/dL (32.0-36.0); MEAN CORPUSCULAR VOLUME 88 fl (80-97); PLATELET COUNT 189 10^3/uL (150-450); RED BLOOD COUNT 3.01 10^6/uL (4.35-5.55); WHITE BLOOD COUNT 5.3 10^3/uL (4.0-10.5)
== END ==
LOC: OD 12:06
PROVIDERS: ATTEND Physician Assistant Medical
DX: N18.4 Chronic kidney disease, stage 4 (severe) (principal); D63.1 Anemia in chronic kidney disease
CPT/HCPCS: 36415; 85027